=== PATIENT | female | born 1960 | race Caucasian/White ===

== ENCOUNTER → 2016-07-03 | Outpatient (CLI) | payer OTHER ==
[~2016-07-03] MED LIST: BAYE325T PO; IBUP400T20 PO; LEVO112T2 PO; LEVO125T4 PO; LEVO88TA2 PO; LIPI80TA PO
== END ==
LOC: CLAB 12:58
PROVIDERS: ATTEND Family Medicine
DX: E03.9 Hypothyroidism, unspecified (principal)
CPT/HCPCS: 36415; 84443

== ENCOUNTER → 2016-08-10 | Outpatient (CLI) | payer OTHER ==
[~2016-08-10] MED LIST changes: -IBUP400T20 PO; +IOHEXOL 350 MG/ML 10 ML VIAL (for RAD DIAG) IV ONE; -LEVO125T4 PO; -LIPI80TA PO
--- NOTE | 2016-08-10 17:56 | RADRPT ---
EXAM DATE/TIME: 08/10/2016 15:08 [facility] COMPARISON: No previous studies available for comparison. INDICATIONS : Diarrhea for three months. IV CONTRAST: 87 cc Omnipaque 350 (iohexol) IV ORAL CONTRAST: Prescribed oral contrast ingested. RADIATION DOSE: 4.84 CTDIvol (mGy) MEDICAL HISTORY : Hypothyroidism. SURGICAL HISTORY : Colon resection. ENCOUNTER: Initial ACUITY: >1 yr PAIN SCALE: 3/10 LOCATION: Right lower quadrant TECHNIQUE: Volumetric scanning of the abdomen and pelvis was performed. Using automated exposure control and ad justment of the mA and/or kV according to patient size, radiation dose was kept as low as reasonably achievable to obtain optimal diagnostic quality images. FINDINGS: LOWER LUNGS: The visualized lower lungs are clear. LIVER: Homogeneous density without lesion. There is no dilation of the biliary tree. No calcified gallston es. SPLEEN: Normal size without lesion. PANCREAS: Within normal limits. KIDNEYS: Normal in size and shape. There is no mass, stone or hydronephrosis. ADRENAL GLANDS: There is a 18 mm low density mass involving the left adrenal gland. VASCULAR: There is no aortic aneurysm. BOWEL/MESENTERY: The stomach, small bowel, and colon demonstrate no acute abnormality. There is no free intraperitone al air or fluid. ABDOMINAL WALL: Within normal limits. RETROPERITONEUM: There is no lymphadenopathy. BLADDER: No wall thickening or mass. REPRODUCTIVE: Within normal limits. INGUINAL: There is no lymphadenopathy or hernia. MUSCULOSKELETAL: Within normal limits for patient age. CONCLUSION: Left adrenal mass which warrants further evaluation, ideally with elective chemical shift MRI. No acu te CT findings in the abdomen or pelvis. Alberto Sahni MD on August 10, 2016 at 17:51 Board Certified Radiologist. This report was verified electronically.
== END ==
LOC: HRAD 13:05
PROVIDERS: ATTEND Family Medicine
DX: R10.2 Pelvic and perineal pain (principal); E03.9 Hypothyroidism, unspecified; F10.10 Alcohol abuse, uncomplicated; R19.7 Diarrhea, unspecified; K08.89 Other specified disorders of teeth and supporting structures
CPT/HCPCS: 36415; 74177; 84443; 87506; Q9967

== ENCOUNTER → 2016-09-14 | Outpatient (CLI) | payer OTHER ==
[~2016-09-14] MED LIST changes: +GADODIAMIDE PF 287 MG/ML 5 ML VIAL (for RAD MRI) IV ONE; -IOHEXOL 350 MG/ML 10 ML VIAL (for RAD DIAG) IV ONE; -LEVO112T2 PO
--- NOTE | 2016-09-14 17:26 | RADRPT ---
EXAM DATE/TIME: 09/14/2016 15:46 [facility] COMPARISON: CT ABDOMEN & PELVIS W CONTRAST, August 10, 2016, 15:08. INDICATIONS : Mass. Left adrenal mass. CONTRAST: 5 cc Omniscan (gadodiamide) IV MEDICAL HISTORY : Carcinoma, thyroid. SURGICAL HISTORY : Tubal ligation. ENCOUNTER: Initial ACUITY: 1 day PAIN SCORE: 3/10 LOCATION: Abdomen TECHNIQUE: Multiplanar, multisequence magnetic resonance imaging of the abdomen was performed wit hout and with intravenous contrast. FINDINGS: MRI was performed without and with contrast as well as with chemical shift imaging to e valuate the left adrenal mass. Examination is degraded by motion. The mass does contain fat and arthur ws only peripheral enhancement suggesting a benign adenoma. The liver, spleen and pancreas are unremarkable. There is no renal mass identified. Portion of the bony skeleton visualized is unremarkable. CONCLUSION: Adrenal mass by MRI has mostly benign characteristics with substantial fat evident. There is minimal cortical enhancement. This most likely represents a benign adenoma. Given its siz e this could either be followed by a CT scan of the adrenals without and with contrast. This could b e obtained six months from today's date. Carlito Tristan MD FACR on September 14, 2016 at 17:17 Board Certified Radiologist. This report was verified electronically.
== END ==
LOC: HRAD 15:32
PROVIDERS: ATTEND Family Medicine
DX: E27.9 Disorder of adrenal gland, unspecified (principal)
CPT/HCPCS: 74183; A9579

== ENCOUNTER → 2016-10-19 | Outpatient (CLI) | payer OTHER ==
[~2016-10-19] MED LIST changes: -GADODIAMIDE PF 287 MG/ML 5 ML VIAL (for RAD MRI) IV ONE
== END ==
LOC: CLAB 12:34
PROVIDERS: ATTEND Family Medicine
DX: E03.9 Hypothyroidism, unspecified (principal)
CPT/HCPCS: 36415; 84443

== ENCOUNTER 2017-03-05 22:39 | Emergency (ER) | payer SELFPAY ==
[~2017-03-05] VITALS: Ht 160 cm; Wt 55.0 kg
[2017-03-05 22:42] VITALS: BP 140/89; PULSE 98; RESP 16; TEMP 98.2; O2SAT 98
[2017-03-05] MEDS ORDERED: IBUPROFEN 600 MG TAB PO ONE (23:00)
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
== END 2017-03-06 00:20 | disposition home or self-care (01) ==
LOC: NEPC 22:39
DX: S09.90XA Unspecified injury of head, initial encounter (principal); R20.0 Anesthesia of skin; R20.2 Paresthesia of skin; J44.9 Chronic obstructive pulmonary disease, unspecified; J45.909 Unspecified asthma, uncomplicated; E07.9 Disorder of thyroid, unspecified; M19.90 Unspecified osteoarthritis, unspecified site; E78.00 Pure hypercholesterolemia, unspecified; W50.0XXA Accidental hit or strike by another person, initial encounter
CPT/HCPCS: 70450; 99284

== ENCOUNTER 2017-07-13 11:38 | Emergency (ER) | payer SELFPAY ==
[~2017-07-13] VITALS: Ht 160 cm; Wt 57.3 kg
[2017-07-13 12:22] VITALS: BP 159/72; PULSE 100; RESP 20; TEMP 98.4; O2SAT 96
--- NOTE | 2017-07-13 13:11 | PD ---
HPI Chief Complaint: Burn Time Seen by Provider: 13:10 Travel History International Travel<30 days: No Contact w/Intl Traveler<30days: No Traveled to known affect area: No History of Present Illness HPI 56-year-old female presents to the emergency department with complaint of a rash to the dorsal aspect of bilateral forearms and her face from chemicals at work from doing dishes. Rashes been present 2 days. 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 Says the area is itchy and burning. Reports nausea without vomiting. Denies fevers. Denies paresthesias, loss of sensation, decreased range of motion, decreased strength to bilateral upper extremities. Denies airway edema, tongue edema, difficulty breathing, shortness of breath. Has not taken any medication or try any treatments to alleviate her symptoms. Constantly aggravating. No known relieving factors. Symptoms are moderate in severity. Multiple allergies as listed on the chart. [facility] his primary care provider. Has no other medical complaints. No other modifying factors or associated signs and symptoms. PFSH Past Medical History Arthritis: Yes Anxiety: Yes Depression: Yes Cancer: Yes (CANCEROUS GOITER ACCD TO PT) High Cholesterol: Yes Diabetes: No Diminished Hearing: No Psychiatric: Yes Respiratory: Yes (COPD AND ASTHMA) Myocardial Infarction: Yes (STATES SHE SHE WAS MEDICALLY/MENTALLY UNFIT) Thyroid Disease: Yes Tetanus Vaccination: > 5 Years ?: Not Menopausal: Yes : 4 Para: 3 Miscarriage: 1 : 0 Ovarian Cysts: Yes Tubal Ligation: Yes Past Surgical History Abdominal Surgery: Yes (EXP LAP) Gynecologic Surgery: Yes (TUBES TIED) Other Surgery: Yes (RECONSTRUCTIVE NECK SURGERY POST CYST REMOVAL) Social History Alcohol Use: No Tobacco Use: Yes (6 CIGARS A DAY) Substance Use: No Allergies-Medications (Allergen,Severity, Reaction): Coded Allergies: Sulfa (Sulfonamide Antibiotics) (Unverified Allergy, Severe, SHOCK, 07/13/17 ) bee venom protein (honey bee) (Unverified Allergy, Severe, SHOCK, 07/13/17) cortisone (Unverified Allergy, Severe, Psychosis, 07/13/17) penicillin G (Unverified Allergy, Severe, SHOCK, 07/13/17) procaine (Unverified Allergy, Severe, SOB, 07/13/17) Uncoded Allergies: ALL NARCOTICS (Allergy, Severe, AGITATION, 01/03/15) . TOMATO SEEDS (Allergy, Severe, "CAN'T BREATH", 01/03/15) . eggplant seeds (Allergy, Mild, Hives, 02/11/16) Reported Meds & Prescriptions Reported Meds & Active Scripts Active Levothyroxine (Levothyroxine Sodium) 88 Mcg Tab 88 Mcg PO DAILY Reported Herminia Aspirin (Aspirin) 325 Mg Tab 650 Tab PO DIRECTED Review of Systems Except as stated in HPI: all other systems reviewed are Neg Physical Exam Narrative GENERAL: Well-nourished, well-developed female patient, in no acute distress; disheveled SKIN: Warm and dry. Erythematous, Maculo-papular rash noted to dorsal aspect of bilateral forearms and hands; minimal rash noted to the palmar aspect of the wrists; minimal edema noted; area with warmth to touch. Minimal maculopapular rash noted to bilateral facial cheeks. Bilateral upper extremities are supple and nontender with 2+ radial pulses and sensory intact. HEAD: Atraumatic. Normocephalic. EYES: Pupils equal and round. No scleral icterus. No injection or drainage. ENT: Mucosa pink and moist. Airway patent. NECK: Trachea midline. CARDIOVASCULAR: Regular rate. RESPIRATORY: No accessory muscle use. GASTROINTESTINAL: Flat. MUSCULOSKELETAL: No obvious deformities. No clubbing. No cyanosis. No edema. NEUROLOGICAL: Awake and alert. Oriented 3. No obvious cranial nerve deficits. Motor grossly within normal limits. Normal speech. PSYCHIATRIC: Appropriate mood and affect; insight and judgment normal. Data Data Last Documented VS Vital Signs Date Time Temp Pulse Resp B/P (MAP) Pulse Ox O2 Delivery O2 Flow Rate FiO2 07/13/17 12:22 98.4 100 20 159/72 (101) 96 Orders Orders Ibuprofen (Motrin) (07/13/17 13:30) Diphenhydramine (Benadryl) (07/13/17 13:30) MDM Medical Decision Making Medical Screen Exam Complete: Yes Emergency Medical Condition: Yes Medical Record Reviewed: Yes Differential Diagnosis Chemical burn, contact dermatitis, nonspecific rash Narrative Course 56-year-old female with rash to bilateral forearms and facial cheeks that appears to be consistent with contact dermatitis. Patient is afebrile and nontoxic-appearing. Denies fever, vomiting. Rash is itchy and burning. Patient cannot take oral steroids secondary to reaction of psychosis. Benadryl and ibuprofen administered in the ER. Instructed patient to continue Benadryl at home. Patient to use [id number] hydrocortisone cream to forearm areas. Clindamycin, ibuprofen prescribed for home. Diagnosis Primary Impression: Rash and nonspecific skin eruption Referrals: [facility] Primary Care Physician Patient Instructions: Acute Rash (ED), Contact Dermatitis (ED), General Instructions Additional Instructions: Antibiotics as prescribed [id number] topicals to reduce itch Benadryl as directed and as needed to reduce itch Follow-up with your primary care provider Return to the emergency department immediately with worsening of symptoms Med/Other Pt SpecificInfo: Prescription(s) given Scripts Ibuprofen (Ibuprofen) 800 Mg Tab 800 MG PO Q6HR Y for PAIN, #30 TAB 0 Refills Prov: Adrienne Hawkins 07/13/17 Clindamycin (Clindamycin) 150 Mg Cap 300 MG PO Q8HR for Infection for 10 Days, CAP 0 Refills Prov: Adrienne Hawkins 07/13/17 Disposition: 01 DISCHARGE HOME Condition: Stable Adrienne Hawkins Jul 13, 2017 13:11
[2017-07-13] MEDS ORDERED: IBUPROFEN 800 MG TAB PO ONE (13:30)
[2017-07-13] MEDS ORDERED: diphenhydrAMINE HCL 50 MG CAP PO ONE (13:30)
[2017-07-13] MEDS ORDERED: CLIN150C14 PO (13:32)
[2017-07-13] MEDS ORDERED: IBUP1TAB7 PO (13:32)
== END 2017-07-13 13:53 | disposition home or self-care (01) ==
LOC: NEPK 11:38
DX: R21 Rash and other nonspecific skin eruption (principal); M19.90 Unspecified osteoarthritis, unspecified site; E78.00 Pure hypercholesterolemia, unspecified; F41.9 Anxiety disorder, unspecified; F32.9 Major depressive disorder, single episode, unspecified; I25.2 Old myocardial infarction; J44.9 Chronic obstructive pulmonary disease, unspecified; E07.9 Disorder of thyroid, unspecified; Z72.0 Tobacco use
CPT/HCPCS: 99283; Q0163

== ENCOUNTER 2017-09-02 14:07 | Emergency (ER) | payer SELFPAY ==
[~2017-09-02] VITALS: Ht 160 cm; Wt 52.0 kg
[~2017-09-02 14:07] MED LIST changes: +CLIN150C14 PO; +IBUP1TAB7 PO
[2017-09-02 14:27] VITALS: BP 151/65; PULSE 78; RESP 22; TEMP 99.1; O2SAT 96
[2017-09-02] MEDS ORDERED: HYDR-3133 PO (15:47)
[2017-09-02] MEDS ORDERED: PRED5PAK PO (15:47)
--- NOTE | 2017-09-02 15:48 | PD ---
HPI Chief Complaint: Skin Problem Time Seen by Provider: 15:34 Travel History International Travel<30 days: No Contact w/Intl Traveler<30days: No Traveled to known affect area: No History of Present Illness HPI This is a 56-year-old female who presents with an itchy rash that has been going on for 3 days, constant, moderate severity over her chest and back and thighs with no associated shortness of breath or chest tightness. She sleeps outside and is concerned she may have had exposure to poisonous plant. PFSH Past Medical History Arthritis: Yes Anxiety: Yes Depression: Yes Cancer: Yes (CANCEROUS GOITER ACCD TO PT) High Cholesterol: Yes Diabetes: No Diminished Hearing: No Psychiatric: Yes Respiratory: Yes (COPD AND ASTHMA) Myocardial Infarction: Yes (STATES SHE SHE WAS MEDICALLY/MENTALLY UNFIT) Thyroid Disease: Yes ?: Not Menopausal: Yes : 4 Para: 3 Miscarriage: 1 : 0 Ovarian Cysts: Yes Tubal Ligation: Yes Past Surgical History Abdominal Surgery: Yes (EXP LAP) Gynecologic Surgery: Yes (TUBES TIED) Other Surgery: Yes (RECONSTRUCTIVE NECK SURGERY POST CYST REMOVAL) Social History Alcohol Use: No Tobacco Use: Yes (6 CIGARS A DAY) Substance Use: No Allergies-Medications (Allergen,Severity, Reaction): Coded Allergies: Sulfa (Sulfonamide Antibiotics) (Verified Allergy, Severe, SHOCK, 09/02/17) bee venom protein (honey bee) (Verified Allergy, Severe, SHOCK, 09/02/17) cortisone (Verified Allergy, Severe, Psychosis, 09/02/17) penicillin G (Verified Allergy, Severe, SHOCK, 09/02/17) procaine (Verified Allergy, Severe, SOB, 09/02/17) Uncoded Allergies: ALL NARCOTICS (Allergy, Severe, AGITATION, 01/03/15) . TOMATO SEEDS (Allergy, Severe, "CAN'T BREATH", 01/03/15) . eggplant seeds (Allergy, Mild, Hives, 02/11/16) Reported Meds & Prescriptions Reported Meds & Active Scripts Active Hydroxyzine HCl 25 Mg Tab 25 Mg PO QID PRN Prednisone (21) 5 mg tab Dose Pack (Prednisone) 5 Mg Dspk 5 Mg PO DIRECTED Ibuprofen 800 Mg Tab 800 Mg PO Q6HR PRN Clindamycin (Clindamycin HCl) 150 Mg Cap 300 Mg PO Q8HR 10 Days Levothyroxine (Levothyroxine Sodium) 88 Mcg Tab 88 Mcg PO DAILY Reported Herminia Aspirin (Aspirin) 325 Mg Tab 650 Tab PO DIRECTED Review of Systems General / Constitutional: No: Fever, Chills Respiratory: No: Cough, Shortness of Breath Physical Exam Narrative GENERAL: Well-appearing, no acute distress, nontoxic SKIN: Papular rash over the anterior chest wall and back with some surrounding erythema HEAD: Atraumatic. Normocephalic. ENT: No nasal bleeding or discharge. Moist mucous membranes MUSCULOSKELETAL: No obvious deformities NEUROLOGICAL: Awake and alert. No obvious cranial nerve deficits. Motor grossly within normal limits. Normal speech. PSYCHIATRIC: Appropriate mood and affect; insight and judgment normal. Data Data Last Documented VS Vital Signs Date Time Temp Pulse Resp B/P (MAP) Pulse Ox O2 Delivery O2 Flow Rate FiO2 09/02/17 15:37 80 20 09/02/17 14:27 99.1 151/65 (93) 96 Orders Orders Ed Discharge Order (09/02/17 15:48) [facility] Medical Decision Making Medical Screen Exam Complete: Yes Emergency Medical Condition: Yes Differential Diagnosis Contact dermatitis, atopic dermatitis, poison phyllis, allergic reaction Narrative Course This is a 56-year-old female who presents to the emergency department with an itchy rash over her torso. It appears to be a contact dermatitis. We discussed the pros and cons of steroids. She has had some cherelle in the setting of steroids in the past but she would like to try low-dose as her symptoms are severe. Patient will be discharged on hydroxyzine and low-dose prednisone. Diagnosis Primary Impression: Contact dermatitis Qualified Codes: L23.9 - Allergic contact dermatitis, unspecified cause Patient Instructions: General Instructions Additional Instructions: If you develop shortness of breath, chest pain, or spreading of your rash return to the emergency department. Med/Other Pt SpecificInfo: Prescription(s) given, No Change to Meds Scripts Hydroxyzine HCl (Hydroxyzine HCl) 25 Mg Tab 25 MG PO QID Y for ITCHING, #15 TAB 0 Refills Prov: Megan Jenkins MD 09/02/17 Prednisone (21) 5 mg tab Dose Pack (Prednisone (21) 5 mg tab Dose Pack) 5 Mg Dspk 5 MG PO DIRECTED for Inflammation, #1 DSPK 0 Refills Prov: Megan Jenkins MD 09/02/17 Disposition: 01 DISCHARGE HOME Condition: Stable Megan Jenkins MD September 02, 2017 15:47
== END 2017-09-02 16:02 | disposition home or self-care (01) ==
LOC: NEPA 14:07
DX: L23.7 Allergic contact dermatitis due to plants, except food (principal); E78.00 Pure hypercholesterolemia, unspecified; F32.9 Major depressive disorder, single episode, unspecified; J44.9 Chronic obstructive pulmonary disease, unspecified; M19.90 Unspecified osteoarthritis, unspecified site; I25.2 Old myocardial infarction; Z72.0 Tobacco use
CPT/HCPCS: 99283

== ENCOUNTER 2017-09-20 14:07 | Emergency (ER) | payer SELFPAY ==
[~2017-09-20] VITALS: Ht 160 cm; Wt 55.0 kg
[~2017-09-20 14:07] MED LIST changes: +HYDR-3133 PO; +PRED5PAK PO
[2017-09-20 14:20] VITALS: BP 138/71; PULSE 93; RESP 16; TEMP 99.7; O2SAT 98
--- NOTE | 2017-09-20 15:40 | PD ---
HPI Chief Complaint: Bite or Sting Time Seen by Provider: 15:20 Travel History International Travel<30 days: No Contact w/Intl Traveler<30days: No Traveled to known affect area: No History of Present Illness HPI Patient comes to the emergency department complaining of possible bug bite to her left axilla that she first noticed 2 days ago. Patient describes a stabbing burning pain in her left axilla that radiates into her left arm and into her left lateral rib cage. Pain is worse with certain movement of her left upper extremity. Patient is tried squeezing it only got a little bit of blood out. Denies anything making it better. Touching it or moving her left upper extremities the pain worse. Denies any fevers, weight loss, chest pain, or shortness of breath. PFSH Past Medical History Arthritis: Yes Anxiety: Yes Depression: Yes Cancer: Yes (CANCEROUS GOITER ACCD TO PT) High Cholesterol: Yes Diabetes: No Diminished Hearing: No Psychiatric: Yes Respiratory: Yes (COPD AND ASTHMA) Myocardial Infarction: Yes (STATES SHE SHE WAS MEDICALLY/MENTALLY UNFIT) Thyroid Disease: Yes ?: Not Menopausal: Yes : 4 Para: 3 Miscarriage: 1 : 0 Ovarian Cysts: Yes Tubal Ligation: Yes Past Surgical History Abdominal Surgery: Yes (EXP LAP) Gynecologic Surgery: Yes (TUBES TIED) Other Surgery: Yes (RECONSTRUCTIVE NECK SURGERY POST CYST REMOVAL) Social History Alcohol Use: No Tobacco Use: Yes (6 CIGARS A DAY) Substance Use: No Allergies-Medications (Allergen,Severity, Reaction): Coded Allergies: Sulfa (Sulfonamide Antibiotics) (Verified Allergy, Severe, SHOCK, 09/02/17) bee venom protein (honey bee) (Verified Allergy, Severe, SHOCK, 09/02/17) cortisone (Verified Allergy, Severe, Psychosis, 09/02/17) penicillin G (Verified Allergy, Severe, SHOCK, 09/02/17) procaine (Verified Allergy, Severe, SOB, 09/02/17) Uncoded Allergies: ALL NARCOTICS (Allergy, Severe, AGITATION, 01/03/15) . TOMATO SEEDS (Allergy, Severe, "CAN'T BREATH", 01/03/15) . eggplant seeds (Allergy, Mild, Hives, 02/11/16) Reported Meds & Prescriptions Reported Meds & Active Scripts Active Doxycycline Hyclate 100 Mg Cap 100 Mg PO BID Clindamycin (Clindamycin HCl) 150 Mg Cap 2 Cap PO Q6H 10 Days Hydroxyzine HCl 25 Mg Tab 25 Mg PO QID PRN Prednisone (21) 5 mg tab Dose Pack (Prednisone) 5 Mg Dspk 5 Mg PO DIRECTED Ibuprofen 800 Mg Tab 800 Mg PO Q6HR PRN Clindamycin (Clindamycin HCl) 150 Mg Cap 300 Mg PO Q8HR 10 Days Levothyroxine (Levothyroxine Sodium) 88 Mcg Tab 88 Mcg PO DAILY Reported Herminia Aspirin (Aspirin) 325 Mg Tab 650 Tab PO DIRECTED Review of Systems Except as stated in HPI: all other systems reviewed are Neg Physical Exam Narrative GENERAL: Well-developed, well nourished, in no acute distress, and non-ill appearing. SKIN: Patient is a small tender firm indurated early abscess noted in left axilla. There is no drainage. No fluctuation. No crepitus. HEAD: Atraumatic. Normocephalic. EYES: Pupils equal and round. EOMI. No scleral icterus. No injection or drainage. ENT: No nasal bleeding or discharge. Mucous membranes pink and moist. NECK: Trachea midline.Supple. No nuclear rigidity. CARDIOVASCULAR: Radial pulses 2+, intact, and equal bilaterally. Capillary refill less than 2 seconds. RESPIRATORY: No accessory muscle use. No respiratory distress. MUSCULOSKELETAL: No obvious deformities. No clubbing. No cyanosis. No edema. Full range of motion the patient is hesitant to move left upper extremity secondary to pain. Shoulder:FROM equal BL with passive flexion, extension, Abduction, Adduction, internal/external rotation, and pronation/supination. Sensation equal BL deltoid muscles. Pulses equal BL distal to infection. Capillary refill less than 2 seconds distal to infection and equal BL. FROM distal to infection and equal BL. Strength distal to infection equal BL. NV intact distal to infection equal BL. Flexion and extension of thumb equal BL. Equal strength and movement with abduction/adductions of BL fingers. [employer] strength equal BL. NEUROLOGICAL: Awake and alert. No obvious cranial nerve deficits. Motor grossly within normal limits. Normal speech. PSYCHIATRIC: Appropriate mood and affect; insight and judgment normal. Data Data Last Documented VS Vital Signs Date Time Temp Pulse Resp B/P (MAP) Pulse Ox O2 Delivery O2 Flow Rate FiO2 09/20/17 14:20 99.7 93 16 138/71 (93) 98 Orders Orders Clindamycin Inj (Cleocin Inj) (09/20/17 15:45) Ed Discharge Order (09/20/17 15:34) [facility] Medical Decision Making Medical Screen Exam Complete: Yes Emergency Medical Condition: Yes Differential Diagnosis Abscess, cellulitis, folliculitis, hidradenitis Narrative Course The patient has no evidence of obvious abscess at this time. The patient will be discharged on antibiotics for cellulitis with possible early/immature abscess. Clinical suspicion, diagnosis and care management was discussed. The patient was given signs and symptoms warnings for worsening infection, such as spreading of redness, increasing pain, and/or swelling, associated heat, pus or fever and instructed to return immediately if these signs or symptoms worsen. The patient is to return in 2 days for recheck for maturity. Sooner if worsens or as needed. The patient agrees with plan. Patient in no obvious distress upon re-evaluation. Discussed patient with Dr. Swan prior discharge, who is in agreement plan of care and disposition. Patient was asked if they wanted to speak to my attending, which the patient did not wish to do at this time. Any questions/concerns in reference to patient diagnosis/condition discussed and clarified prior to patient's discharge. Reinforced sheer importance of close follow up with patient's primary physician or primary care clinic. Instructed patient to return to ED immediately, if symptoms return/worsen. Patient showed understanding of above instructions. Further instructions and recommendations were detailed in discharge paperwork. Patient ambulated without difficulty out of ED at discharge. Diagnosis Primary Impression: Cellulitis of axilla, left Referrals: [facility] Patient Instructions: Cellulitis (ED), General Instructions Additional Instructions: Follow-up with your primary care physician or return here in 2 days for reevaluation. Take all medication as prescribed. Apply warm compresses to affected area multiple times throughout the day to promote maturity. Return to the emergency department sooner if symptoms get worse. Med/Other Pt SpecificInfo: Prescription(s) given Scripts Doxycycline Hyclate (Doxycycline Hyclate) 100 Mg Cap 100 MG PO BID for Infection, #20 CAP 0 Refills Prov: Jayme Swan MD 09/20/17 Clindamycin (Clindamycin) 150 Mg Cap 2 CAP PO Q6H for Infection for 10 Days, #80 CAP 0 Refills Prov: Jayme Swan MD 09/20/17 Disposition: 01 DISCHARGE HOME Condition: Stable Raffaele Bass Sep 20, 2017 15:40
[2017-09-20] MEDS ORDERED: DOXY100C PO (15:45)
[2017-09-20] MEDS ORDERED: CLIN150C14 PO (15:45)
[2017-09-20] MEDS ORDERED: CLINDAMYCIN PHOS 600 MG/4 ML VIAL IM ONE (15:45)
== END 2017-09-20 18:28 | disposition home or self-care (01) ==
LOC: NEPD 14:07
DX: L03.112 Cellulitis of left axilla (principal); F17.290 Nicotine dependence, other tobacco product, uncomplicated
CPT/HCPCS: 96372

== ENCOUNTER 2017-09-22 13:01 | Inpatient (IN) | payer SELFPAY ==
[~2017-09-22] VITALS: Ht 160 cm; Wt 54.5 kg
[~2017-09-22 13:01] MED LIST changes: +DOXY100C PO
[2017-09-22 13:06] VITALS: BP 153/99; PULSE 123; RESP 16; TEMP 99.7; O2SAT 96
[2017-09-22] MEDS ORDERED: SODIUM CHLOR 0.9% 1000 ML INJ 1,000 ML IV ONE ×2 (13:30)
--- NOTE | 2017-09-22 13:32 | PD ---
HPI Chief Complaint: Wound/Suture/Staple Re-Check Time Seen by Provider: 13:19 Travel History International Travel<30 days: No Contact w/Intl Traveler<30days: No Traveled to known affect area: No History of Present Illness HPI 56-year-old female with history of CAD, hypothyroidism, COPD, depression, anxiety, presents emergency department for reevaluation of what she believes is an insect bite to her left axilla. Patient was seen and evaluated here on Wednesday. She believed the bite occurred 2 days prior. She was given clindamycin IM on Wednesday and prescribed doxycycline and clindamycin outpatient. Patient states she cannot afford her antibiotics. Over the course of the last 2 days, pain has become more constant and severe. It is exacerbated with any movement of the left upper extremity. She states it radiates to her chest which is also very tender to palpate. She reports subjective fever and chills. She states she has also been nauseous. She has no other symptoms to report at this time. PFSH Past Medical History Arthritis: Yes Anxiety: Yes Depression: Yes Cancer: Yes (CANCEROUS GOITER ACCD TO PT) High Cholesterol: Yes Diabetes: No Diminished Hearing: No Psychiatric: Yes Respiratory: Yes (COPD AND ASTHMA) Myocardial Infarction: Yes (STATES SHE WAS MEDICALLY/MENTALLY UNFIT) Thyroid Disease: Yes Menopausal: Yes : 4 Para: 3 Miscarriage: 1 : 0 Ovarian Cysts: Yes Tubal Ligation: Yes Past Surgical History Abdominal Surgery: Yes (EXP LAP) Gynecologic Surgery: Yes (TUBES TIED) Other Surgery: Yes (RECONSTRUCTIVE NECK SURGERY POST CYST REMOVAL) Social History Alcohol Use: No Tobacco Use: Yes (6 CIGARS A DAY) Substance Use: No Allergies-Medications (Allergen,Severity, Reaction): Coded Allergies: Sulfa (Sulfonamide Antibiotics) (Verified Allergy, Severe, SHOCK, 09/22/17) bee venom protein (honey bee) (Verified Allergy, Severe, SHOCK, 09/22/17) cortisone (Verified Allergy, Severe, Psychosis, 09/22/17) penicillin G (Verified Allergy, Severe, SHOCK, 09/22/17) procaine (Verified Allergy, Severe, SOB, 09/22/17) Uncoded Allergies: ALL NARCOTICS (Allergy, Severe, AGITATION, 01/03/15) . TOMATO SEEDS (Allergy, Severe, "CAN'T BREATH", 01/03/15) . eggplant seeds (Allergy, Mild, Hives, 02/11/16) Reported Meds & Prescriptions Reported Meds & Active Scripts Active Doxycycline Hyclate 100 Mg Cap 100 Mg PO BID Clindamycin (Clindamycin HCl) 150 Mg Cap 2 Cap PO Q6H 10 Days Hydroxyzine HCl 25 Mg Tab 25 Mg PO QID PRN Prednisone (21) 5 mg tab Dose Pack (Prednisone) 5 Mg Dspk 5 Mg PO DIRECTED Ibuprofen 800 Mg Tab 800 Mg PO Q6HR PRN Clindamycin (Clindamycin HCl) 150 Mg Cap 300 Mg PO Q8HR 10 Days Levothyroxine (Levothyroxine Sodium) 88 Mcg Tab 88 Mcg PO DAILY Reported Herminia Aspirin (Aspirin) 325 Mg Tab 650 Tab PO DIRECTED Review of Systems Except as stated in HPI: all other systems reviewed are Neg Physical Exam Narrative GENERAL: Unkempt female patient, lying in bed, in no acute distress SKIN: Focused skin assessment warm/dry. Induration with associated erythema encompassing the entire left axilla extending onto the left anterior chest. There is another patch of erythema more medially located. The area is warm and tender to palpate. There is no fluctuation or drainage. There is left axillary adenopathy. HEAD: Atraumatic. Normocephalic. EYES: Pupils equal and round. No scleral icterus. No injection or drainage. ENT: No nasal bleeding or discharge. Mucous membranes pink and moist. NECK: Trachea midline. No JVD. CARDIOVASCULAR: Tachycardic rate and rhythm. RESPIRATORY: No accessory muscle use. Coarse, diminished to auscultation. Breath sounds equal bilaterally. GASTROINTESTINAL: Abdomen soft, non-tender, nondistended. Hepatic and splenic margins not palpable. MUSCULOSKELETAL: No obvious deformities. No clubbing. No cyanosis. Distal pulses are palpable. Cap refills within normal limits. NEUROLOGICAL: Awake and alert. No obvious cranial nerve deficits. Motor grossly within normal limits. Normal speech. Data Data Last Documented VS Vital Signs Date Time Temp Pulse Resp B/P (MAP) Pulse Ox O2 Delivery O2 Flow Rate FiO2 09/22/17 13:52 107 24 128/67 (87) 95 Room Air 09/22/17 13:06 99.7 Orders Orders Sepsis Workup Initiated (09/22/17 ) Complete Blood Count With Diff (09/22/17 13:26) Comprehensive Metabolic Panel (09/22/17 13:26) Lactic Acid Sepsis Protocol (09/22/17 13:26) Urinalysis - C+S If Indicated (09/22/17 13:) Blood Culture (09/22/17 13:) Chest, Single Ap (09/22/17 13:26) Blood Glucose (09/22/17 13:26) Ecg Monitoring (09/22/17 13:) Iv Access Insert/Monitor (09/22/17 13:) Oximetry (09/22/17 13:) Oxygen Administration (09/22/17 13:) Us Soft Tissue (09/22/17 ) Sodium Chlor 0.9% 1000 Ml Inj (Ns 1000 M (09/22/17 13:30) Sodium Chlor 0.9% 1000 Ml Inj (Ns 1000 M (09/22/17 13:30) Aztreonam Inj (Azactam Inj) (09/22/17 15:05) Metronidazole 500 Mg Inj (Flagyl 500 Mg (09/22/17 15:05) Vancomycin Inj (Vancomycin Inj) (09/22/17 15:05) Labs Laboratory Tests Test 09/22/17 14:16 White Blood Count 14.4 TH/MM3 Red Blood Count 5.45 MIL/MM3 Hemoglobin 17.0 GM/DL Hematocrit 49.6 % Mean Corpuscular Volume 91.0 FL Mean Corpuscular Hemoglobin 31.2 PG Mean Corpuscular Hemoglobin Concent 34.3 % Red Cell Distribution Width 15.1 % Platelet Count 162 TH/MM3 Mean Platelet Volume 10.0 FL Neutrophils (%) (Auto) 87.0 % Lymphocytes (%) (Auto) 7.2 % Monocytes (%) (Auto) 5.3 % Eosinophils (%) (Auto) 0.2 % Basophils (%) (Auto) 0.3 % Neutrophils # (Auto) 12.5 TH/MM3 Lymphocytes # (Auto) 1.0 TH/MM3 Monocytes # (Auto) 0.8 TH/MM3 Eosinophils # (Auto) 0.0 TH/MM3 Basophils # (Auto) 0.0 TH/MM3 CBC Comment DIFF FINAL Differential Comment MDM Medical Decision Making Medical Screen Exam Complete: Yes Emergency Medical Condition: Yes Medical Record Reviewed: Yes Differential Diagnosis Abscess versus cellulitis versus neoplasm versus adenopathy versus insect bite versus local reaction Narrative Course 56-year-old female presents emergency department for evaluation of an insect bite to her left axilla that she was seen and evaluated for here on Wednesday of this week. Patient has not taken her antibiotics because she cannot afford them. The area has become more reddened and more painful extending onto her chest as well. Patient's breast exam is benign. Left axilla is tender with associated adenopathy. Patient does meet sepsis criteria. Antibiotics and IV fluid normal saline bolus are per protocol. Laboratory Tests Test 09/22/17 14:16 White Blood Count 14.4 TH/MM3 Red Blood Count 5.45 MIL/MM3 Hemoglobin 17.0 GM/DL Hematocrit 49.6 % Mean Corpuscular Volume 91.0 FL Mean Corpuscular Hemoglobin 31.2 PG Mean Corpuscular Hemoglobin Concent 34.3 % Red Cell Distribution Width 15.1 % Platelet Count 162 TH/MM3 Mean Platelet Volume 10.0 FL Neutrophils (%) (Auto) 87.0 % Lymphocytes (%) (Auto) 7.2 % Monocytes (%) (Auto) 5.3 % Eosinophils (%) (Auto) 0.2 % Basophils (%) (Auto) 0.3 % Neutrophils # (Auto) 12.5 TH/MM3 Lymphocytes # (Auto) 1.0 TH/MM3 Monocytes # (Auto) 0.8 TH/MM3 Eosinophils # (Auto) 0.0 TH/MM3 Basophils # (Auto) 0.0 TH/MM3 CBC Comment DIFF FINAL Differential Comment I discussed the patient my attending physician is also assessed the patient. he was to panel and lactic acid are yet to be resulted due to re-collect. Patient will be admitted to [facility] for admission further evaluation. Sepsis Criteria SIRS Criteria (2 or more): Heart rate over 90, WBC > 70902, < 4000 or > 10% bands Sepsis Criteria (SIRS+source): Infect source susp/known Diagnosis Primary Impression: Sepsis Qualified Codes: A41.9 - Sepsis, unspecified organism Additional Impression: Cellulitis of axillary region Admitting Information Admitting Physician Requests: Admit Condition: Stable Opal Sunshine PEDRO Sep 22, 2017 13:32
--- NOTE | 2017-09-22 13:50 | RADRPT ---
EXAM DATE: 09/22/2017 1:44 PM EDT AGE/SEX: 56 years / Female INDICATIONS: Fever for several days. Patient being treated for a spider bite, 4 days. CLINICAL DATA: This is the patient's initial encounter. Patient reports that signs and symptoms have been present for 4 - 6 days and indicates a pain score of 0/10. MEDICAL/SURGICAL HISTORY: Hypercholesterolemia. Hypothyroidism. Chronic obstructive pulmonary disease. hyperlipidemia. Asthma. Arthritis. Hysterectomy. COMPARISON: No prior exams available for comparison. FINDINGS: A single AP view of the chest demonstrates the lungs to be symmetrically aerated without evidence of mass, infiltrate or effusion. The cardiomediastinal contours are unremarkable. Osseous structures a re intact. CONCLUSION: Negative examination. Electronically signed by: Bassam Becker MD 09/22/2017 1:49 PM EDT
[2017-09-22 13:52] VITALS: BP 128/67; PULSE 107; RESP 24; O2SAT 95
[2017-09-22 14:55] LABS: AUTOMATED NEUTROPHIL # 12.5 TH/MM3 (1.8-7.7); BASOPHIL % 0.3 % (0.0-2.0); EOSINOPHIL % 0.2 % (0.0-4.0); HEMATOCRIT 49.6 % (35.0-46.0); LYMPH % 7.2 % (9.0-44.0); MEAN CORPUSCULAR HEMOGLOBIN 31.2 PG (27.0-34.0); MEAN CORPUSCULAR HGB CONC 34.3 % (32.0-36.0); MONO % 5.3 % (0.0-8.0); MONOCYTE # 0.8 TH/MM3 (0-0.9); PLATELET COUNT 162 TH/MM3 (150-450); RED BLOOD COUNT 5.45 MIL/MM3 (4.00-5.30); RED CELL DISTRIBUTION WIDTH 15.1 % (11.6-17.2); WHITE BLOOD COUNT 14.4 TH/MM3 (4.0-11.0)
[2017-09-22] MEDS ORDERED: VANCOMYCIN INJ 1,000 MG in SODIUM CHLOR 0.9% 250 ML INJ 250 ML IV STA (15:05)
[2017-09-22] MEDS ORDERED: AZTREONAM INJ 2,000 MG in SODIUM CHLORIDE 0.9% INJ 100 ML IV STA (15:05)
[2017-09-22] MEDS ORDERED: metroNIDAZOLE 500 MG INJ 100 ML IV STA (15:05)
--- NOTE | 2017-09-22 15:37 | PD ---
Physical Exam Narrative GENERAL: 56 y/o female in no apparent distress SKIN: Cellulitis noted to left upper arm that extends into chest, patient has pain with palpation of axilla without limited exam but no obvious abscess HEAD: Atraumatic. Normocephalic. EYES: Pupils equal and round. No scleral icterus. No injection or drainage. ENT: No nasal bleeding or discharge. Mucous membranes pink and moist. NECK: Trachea midline. CARDIOVASCULAR: Regular rate and rhythm. RESPIRATORY: No accessory muscle use. Clear to auscultation. Breath sounds equal bilaterally. MUSCULOSKELETAL: No obvious deformities. No clubbing. No cyanosis. Significant pain with movement of left arm NEUROLOGICAL: Awake and alert. No obvious cranial nerve deficits. Motor grossly within normal limits. Normal speech. PSYCHIATRIC: Appropriate mood and affect; insight and judgment normal. Data Data Last Documented VS Vital Signs Date Time Temp Pulse Resp B/P (MAP) Pulse Ox O2 Delivery O2 Flow Rate FiO2 09/22/17 17:21 98 19 147/74 (98) 97 Room Air 09/22/17 13:06 99.7 Orders Orders Sepsis Workup Initiated (09/22/17 ) Complete Blood Count With Diff (09/22/17 13:26) Comprehensive Metabolic Panel (09/22/17 13:26) Lactic Acid Sepsis Protocol (09/22/17 13:26) Urinalysis - C+S If Indicated (09/22/17 13:26) Blood Culture (09/22/17 13:26) Chest, Single Ap (09/22/17 13:26) Blood Glucose (09/22/17 13:26) Ecg Monitoring (09/22/17 13:26) Iv Access Insert/Monitor (09/22/17 13:26) Oximetry (09/22/17 13:26) Oxygen Administration (09/22/17 13:26) Us Soft Tissue (09/22/17 ) Sodium Chlor 0.9% 1000 Ml Inj (Ns 1000 M (09/22/17 13:30) Sodium Chlor 0.9% 1000 Ml Inj (Ns 1000 M (09/22/17 13:30) Aztreonam Inj (Azactam Inj) (09/22/17 15:05) Metronidazole 500 Mg Inj (Flagyl 500 Mg (09/22/17 15:05) Vancomycin Inj (Vancomycin Inj) (09/22/17 15:05) Admit Order (Ed Use Only) (09/22/17 17:41) Labs Laboratory Tests Test 09/22/17 14:16 09/22/17 15:39 09/22/17 15:40 White Blood Count 14.4 TH/MM3 Red Blood Count 5.45 MIL/MM3 Hemoglobin 17.0 GM/DL Hematocrit 49.6 % Mean Corpuscular Volume 91.0 FL Mean Corpuscular Hemoglobin 31.2 PG Mean Corpuscular Hemoglobin Concent 34.3 % Red Cell Distribution Width 15.1 % Platelet Count 162 TH/MM3 Mean Platelet Volume 10.0 FL Neutrophils (%) (Auto) 87.0 % Lymphocytes (%) (Auto) 7.2 % Monocytes (%) (Auto) 5.3 % Eosinophils (%) (Auto) 0.2 % Basophils (%) (Auto) 0.3 % Neutrophils # (Auto) 12.5 TH/MM3 Lymphocytes # (Auto) 1.0 TH/MM3 Monocytes # (Auto) 0.8 TH/MM3 Eosinophils # (Auto) 0.0 TH/MM3 Basophils # (Auto) 0.0 TH/MM3 CBC Comment DIFF FINAL Differential Comment Lactic Acid Level 1.1 mmol/L Blood Urea Nitrogen 7 MG/DL Creatinine 0.63 MG/DL Random Glucose 85 MG/DL Total Protein 7.1 GM/DL Albumin 2.9 GM/DL Calcium Level 7.7 MG/DL Alkaline Phosphatase 103 U/L Aspartate Amino Transf (AST/SGOT) 10 U/L Alanine Aminotransferase (ALT/SGPT) 8 U/L Total Bilirubin 0.5 MG/DL Sodium Level 138 MEQ/L Potassium Level 3.6 MEQ/L Chloride Level 107 MEQ/L Carbon Dioxide Level 19.4 MEQ/L Anion Gap 12 MEQ/L Estimat Glomerular Filtration Rate 98 ML/MIN Urine Color LIGHT-YELLOW Urine Turbidity CLEAR Urine pH 7.0 Urine Specific [place] 1.007 Urine Protein NEG mg/dL Urine Glucose (UA) NEG mg/dL Urine Ketones NEG mg/dL Urine Occult Blood NEG Urine Nitrite NEG Urine Bilirubin NEG Urine Urobilinogen LESS THAN 2.0 MG/DL Urine Leukocyte Esterase NEG Urine RBC LESS THAN 1 /hpf Urine Squamous Epithelial Cells <1 /hpf Microscopic Urinalysis Comment CATH-CULT NOT IND MDM Supervised Visit with NATALIE: Yes Interpretation(s) CBC & BMP Diagram 09/22/17 14:16 09/22/17 15:39 Total Protein 7.1, Albumin 2.9 L, Calcium Level 7.7 L, Alkaline Phosphatase 103 , Aspartate Amino Transf (AST/SGOT) 10 L, Alanine Aminotransferase (ALT/SGPT) 8 L, Total Bilirubin 0.5 Last 24 hours Impressions Chest X-Ray 09/22/17 1326 Signed Impressions: CONCLUSION: Negative examination. Soft Tissue Ultrasound 09/22/17 0000 Signed Impressions: CONCLUSION: 1. Probable lymph node as above. Narrative Course I, Dr. le , have reviewed the advance practice practitioner's documentation and am in agreement, met with the patient face to face, made the diagnosis, and the medical decision making was done by me. *My assessment and Findings: 56 y/o female presents with persistent cellulitis that is spreading with signs of sepsis. She will be admitted to the hospital for IV antibiotic therapy. Sepsis Criteria SIRS Criteria (2 or more): Heart rate over 90, WBC > 16928, < 4000 or > 10% bands Sepsis Criteria (SIRS+source): Infect source susp/known Criteria Outcome: Meets sepsis criteria Diagnosis Primary Impression: Sepsis Qualified Codes: A41.9 - Sepsis, unspecified organism Additional Impression: Cellulitis of axillary region Admitting Information Admitting Physician Requests: Admit Portia Le MD Sep 22, 2017 15:37
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
[2017-09-22 16:15] LABS: BILIRUBIN, URINE NEG (NEG); BLOOD, URINE NEG (NEG); GLUCOSE,URINE NEG (NEG); KETONE, URINE NEG (NEG); NITRITE,URINE NEG (NEG); SQUAMOUS EPITHELIAL CELL URINE <1 /hpf (0-5); URINE COLOR LIGHT-YELLOW (YELLW/STRAW); URINE LEUKOCYTE ESTERASE NEG (NEG)
[2017-09-22 16:51] LABS: ALKALINE PHOSPHATASE 103 U/L (45-117); TOTAL BILIRUBIN ADULT 0.5 MG/DL (0.2-1.0); TOTAL PROTEIN 7.1 GM/DL (6.4-8.2)
[2017-09-22 17:13] LABS: ALBUMIN 2.9 GM/DL (3.4-5.0); ALT (GPT) 8 U/L (10-53); AST (GOT) 10 U/L (15-37); BICARBONATE 19.4 MEQ/L (21.0-32.0); BLOOD UREA NITROGEN 7 MG/DL (7-18); CALCIUM 7.7 MG/DL (8.5-10.1); CHLORIDE 107 MEQ/L (98-107); CREATININE 0.63 MG/DL (0.50-1.00); GLOMERULAR FILTRATION RATE 98 ML/MIN (>89); GLUCOSE,RANDOM 85 MG/DL (74-106); SODIUM (NA) 138 MEQ/L (136-145)
[2017-09-22 17:21] VITALS: BP 147/74; PULSE 98; RESP 19; O2SAT 97
[2017-09-22 18:14] VITALS: TEMP 100.9
[2017-09-22] MEDS ORDERED: BISACODYL 10 MG SUPP RECTAL PRN (19:00)
[2017-09-22] MEDS ORDERED: MAGNESIUM HYDROXIDE SUSP 30 ML CUP PO PRN (19:00)
[2017-09-22] MEDS ORDERED: VANCOMYCIN INJ 1,000 MG in SODIUM CHLOR 0.9% 250 ML INJ 250 ML IV SCH (19:00)
[2017-09-22] MEDS ORDERED: LACTULOSE SYRUP 20 GM/30 ML CUP PO PRN (19:00)
[2017-09-22] MEDS ORDERED: NALOXONE HCL 0.4 MG/ML AMP IV PUSH PRN (19:00)
[2017-09-22] MEDS ORDERED: SODIUM CHLORIDE 0.9% FLUSH 10 ML FLUSH IV FLUSH PRN (19:00)
[2017-09-22] MEDS ORDERED: SENNOSIDES 8.6 MG TAB PO PRN ×2 (19:00→20:45)
[2017-09-22] MEDS ORDERED: Vancomycin Consult Pharmacy 1 EA OTHER SCH (19:15)
--- NOTE | 2017-09-22 19:43 | HHI.HP ---
HPI Service [facility] Hospitalists Primary Care Physician Unknown Admission Diagnosis Sepsis; L axilla cellulitis Diagnoses: Chief Complaint: Left axillary pain Travel History International Travel<30 Days: No Contact w/Intl Traveler <30 Da: No Traveled to Known Affected Are: No History of Present Illness This is a 56-year-old female with past medical history of hypothyroidism who presents to [facility] for the second time complaining of left axillary pain, erythema, warmth. The patient states that this past Wednesday she was bed while she was sleeping by spider. She was seen in the hospital 2 days ago on September 20, 2017 and was discharged with oral antibiotics. The patient states that due to lack of economic resources she was not able to buy the medication. The patient described the pain as constant, throbbing, nonradiating associated with fevers and chills which has been progressively been getting worse. The patient otherwise denies any chest pain, shortness of breath, nausea, vomiting, abdominal pain, diarrhea. Review of Systems As per HPI, other systems reviewed by me and negative. Past Family Social History Past Medical History Hypothyroidism Past Surgical History Tubal ligation. Cyst in the neck removal. Plastic surgery for neck scar. Reported Medications Ibuprofen 800 Mg Tab 800 Mg PO Q6HR PRN Levothyroxine (Levothyroxine Sodium) 88 Mcg Tab 88 Mcg PO DAILY Allergies: Coded Allergies: Sulfa (Sulfonamide Antibiotics) (Verified Allergy, Severe, SHOCK, 09/22/17) bee venom protein (honey bee) (Verified Allergy, Severe, SHOCK, 09/22/17) cortisone (Verified Allergy, Severe, Psychosis, 09/22/17) penicillin G (Verified Allergy, Severe, SHOCK, 09/22/17) procaine (Verified Allergy, Severe, SOB, 09/22/17) Uncoded Allergies: ALL NARCOTICS (Allergy, Severe, AGITATION, 01/03/15) . TOMATO SEEDS (Allergy, Severe, "CAN'T BREATH", 01/03/15) . eggplant seeds (Allergy, Mild, Hives, 02/11/16) Family History Patient's brother had diabetes mellitus. Patient's father had CAD. Social History The patient states she smokes 3-10 cigarettes per day. Denies alcohol intake but has history of alcohol abuse and states has been sober for the last 26 years. Denies illegal drug use. Physical Exam Vital Signs Vital Signs Date Time Temp Pulse Resp B/P (MAP) Pulse Ox O2 Delivery O2 Flow Rate FiO2 09/22/17 18:14 100.9 09/22/17 17:21 98 19 147/74 (98) 97 Room Air 09/22/17 13:52 107 24 128/67 (87) 95 Room Air 09/22/17 13:06 99.7 123 16 153/99 (117) 96 Physical Exam GENERAL: This is a well-nourished, well-developed patient, in no apparent distress. SKIN: No rashes, ecchymoses or lesions. Cool and dry. HEAD: Atraumatic. Normocephalic. No temporal or scalp tenderness. EYES: Pupils equal round and reactive. Extraocular motions intact. No scleral icterus. No injection or drainage. ENT: Nose without bleeding, purulent drainage or septal hematoma. Throat without erythema, tonsillar hypertrophy or exudate. Uvula midline. Airway patent. NECK: Trachea midline. No JVD or lymphadenopathy. Supple, nontender, no meningeal signs. CARDIOVASCULAR: Regular rate and rhythm without murmurs, gallops, or rubs. RESPIRATORY: Clear to auscultation. Breath sounds equal bilaterally. No wheezes , rales, or rhonchi. GASTROINTESTINAL: Abdomen soft, non-tender, nondistended. No hepato-splenomegaly , or palpable masses. No guarding. MUSCULOSKELETAL: Extremities without clubbing, cyanosis, or edema. No joint tenderness, effusion, or edema noted. No calf tenderness. Negative Homans sign bilaterally. NEUROLOGICAL: Awake and alert. Cranial nerves II through XII intact. Motor and sensory grossly within normal limits. Five out of 5 muscle strength in all muscle groups. Normal speech. Laboratory Laboratory Tests Test 09/22/17 14:16 09/22/17 15:39 09/22/17 15:40 White Blood Count 14.4 Red Blood Count 5.45 Hemoglobin 17.0 Hematocrit 49.6 Mean Corpuscular Volume 91.0 Mean Corpuscular Hemoglobin 31.2 Mean Corpuscular Hemoglobin Concent 34.3 Red Cell Distribution Width 15.1 Platelet Count 162 Mean Platelet Volume 10.0 Neutrophils (%) (Auto) 87.0 Lymphocytes (%) (Auto) 7.2 Monocytes (%) (Auto) 5.3 Eosinophils (%) (Auto) 0.2 Basophils (%) (Auto) 0.3 Neutrophils # (Auto) 12.5 Lymphocytes # (Auto) 1.0 Monocytes # (Auto) 0.8 Eosinophils # (Auto) 0.0 Basophils # (Auto) 0.0 CBC Comment DIFF FINAL Differential Comment Lactic Acid Level 1.1 Blood Urea Nitrogen 7 Creatinine 0.63 Random Glucose 85 Total Protein 7.1 Albumin 2.9 Calcium Level 7.7 Alkaline Phosphatase 103 Aspartate Amino Transf (AST/SGOT) 10 Alanine Aminotransferase (ALT/SGPT) 8 Total Bilirubin 0.5 Sodium Level 138 Potassium Level 3.6 Chloride Level 107 Carbon Dioxide Level 19.4 Anion Gap 12 Estimat Glomerular Filtration Rate 98 Urine Color LIGHT-YELLOW Urine Turbidity CLEAR Urine pH 7.0 Urine Specific Page 1.007 Urine Protein NEG Urine Glucose (UA) NEG Urine Ketones NEG Urine Occult Blood NEG Urine Nitrite NEG Urine Bilirubin NEG Urine Urobilinogen LESS THAN 2.0 Urine Leukocyte Esterase NEG Urine RBC LESS THAN 1 Urine Squamous Epithelial Cells <1 Microscopic Urinalysis Comment CATH-CULT NOT IND Date/Time Source Procedure Growth Status 09/22/17 14:10 Blood Peripheral Aerobic Blood Culture Pending Received 09/22/17 14:10 Blood Peripheral Anaerobic Blood Culture Pending Received Result Diagram: 09/22/17 1416 09/22/17 1539 Caprini VTE Risk Assessment Caprini VTE Risk Assessment: Mod/High Risk (score >= 2) Caprini Risk Assessment Model Point Value = 1 Point Value = 2 Point Value = 3 Point Value = 5 Age 41-60 Minor surgery BMI > 25 kg/m2 Swollen legs Varicose veins or History of unexplained or recurrent spontaneous Oral contraceptives or hormone replacement Sepsis (< 1 month) Serious lung disease, including pneumonia (< 1 month) Abnormal pulmonary function Acute myocardial infarction Congestive heart failure (< 1 month) History of inflammatory bowel disease Medical patient at bed rest Age 61-74 Arthroscopic surgery Major open surgery (> 45 min) Laparoscopic surgery (> 45 min) Malignancy Confined to bed (> 72 hours) Immobilizing plaster cast Central venous access Age >= 75 History of VTE Family history of VTE Factor V Leiden Prothrombin [id number] Lupus anticoagulant Anticardiolipin antibodies Elevated serum homocysteine Heparin-induced thrombocytopenia Other congenital or acquired thrombophilia Stroke (< 1 month) Elective arthroplasty Hip, pelvis, or leg fracture Acute spinal cord injury (< 1 month) Prophylaxis Regimen Total Risk Factor Score Risk Level Prophylaxis Regimen 0-1 Low Early ambulation 2 Moderate Order ONE of the following: *Sequential Compression Device (SCD) *Heparin 5000 units SQ BID 3-4 Higher Order ONE of the following medications: *Heparin 5000 units SQ TID *Enoxaparin/Lovenox 40 mg SQ daily (WT < 150 kg, CrCl > 30 mL/min) *Enoxaparin/Lovenox 30 mg SQ daily (WT < 150 kg, CrCl > 10-29 mL/min) *Enoxaparin/Lovenox 30 mg SQ BID (WT < 150 kg, CrCl > 30 mL/min) AND/OR *Sequential Compression Device (SCD) 5 or more Highest Order ONE of the following medications: *Heparin 5000 units SQ TID (Preferred with Epidurals) *Enoxaparin/Lovenox 40 mg SQ daily (WT < 150 kg, CrCl > 30 mL/min) *Enoxaparin/Lovenox 30 mg SQ daily (WT < 150 kg, CrCl > 10-29 mL/min) *Enoxaparin/Lovenox 30 mg SQ BID (WT < 150 kg, CrCl > 30 mL/min) AND *Sequential Compression Device (SCD) Assessment and Plan Problem List: (1) Sepsis ICD Code: A41.9 - Sepsis, unspecified organism Status: Acute (2) Cellulitis of axillary region ICD Code: L03.119 - Cellulitis of unspecified part of limb Status: Acute (3) Hypothyroidism ICD Code: E03.9 - Hypothyroidism, unspecified Assessment and Plan Soft tissue ultrasound of the axilla showed a 1 cm apparent lymph node in the left axilla without defined fluid or abscess. Admit the patient to the medical floor Sepsis present on admission with tachycardia, fever and leukocytosis. Source skin in left axilla. Chest x-ray reviewed by me without infiltrates or effusions. Patient status post IV vancomycin, IV aztreonam and IV Flagyl in the emergency department. Continue vancomycin, start IV Levaquin. ID consult. Continue home dose levothyroxine for hypothyroidism. Monitor vital signs IV fluids We will place on Toradol for pain control. SCDs and Lovenox for DVT prophylaxis. Code Status Full code Discussed Condition With ED physician, patient, RN. Physician Certification 2 Midnight Certification Type: Admission for Inpatient Services Order for Inpatient Services The services are ordered in accordance with Medicare regulations or non- Medicare payer requirements, as applicable. In the case of services not specified as inpatient-only, they are appropriately provided as inpatient services in accordance with the 2-midnight benchmark. Estimated LOS (days): 2 days is the estimated time the patient will need to remain in the hospital, assuming treatment plan goals are met and no additional complications. Post-Hospital Plan: Home Problem Qualifiers (1) Sepsis: Qualified Codes: A41.9 - Sepsis, unspecified organism Manuel Fonseca MD Sep 22, 2017 19:43
[2017-09-22] MEDS: SODIUM CHLOR 0.9% 1000 ML INJ 1,000 ML IV SCH (19:51)
[2017-09-22] MEDS: ACETAMINOPHEN 325 MG TAB PO PRN (19:51)
[2017-09-22] MEDS: LEVOFLOXACIN 750 MG PREMIX INJ 150 ML IV SCH (19:51)
[2017-09-22] MEDS ORDERED: ENOXAPARIN SODIUM 40 MG/0.4 ML SYRINGE SQ SCH (20:00)
[2017-09-22] MEDS: DOCUSATE SODIUM 50 MG/SENNA 8.6 MG TAB PO SCH (21:00)
[2017-09-22] MEDS: SODIUM CHLORIDE 0.9% FLUSH 10 ML FLUSH IV FLUSH SCH (21:00)
[2017-09-22 21:25] VITALS: BP 144/73; PULSE 102; RESP 16; TEMP 99.2; O2SAT 95
[2017-09-22 22:30] VITALS: PULSE 86
[2017-09-22] MEDS: KETOROLAC TROMETHAMINE 30 MG/ML (IVP) VIAL IV PUSH PRN (23:15)
[2017-09-23] VITALS (11 sets, daily range): BP systolic 102–175; BP diastolic 66–87; PULSE 74–91; RESP 18–20; TEMP 98–100.4; O2SAT 95–97
[2017-09-23] MEDS: VANCOMYCIN INJ 800 MG in SODIUM CHLOR 0.9% 250 ML INJ 250 ML IV SCH ×2 (04:19→16:40)
[2017-09-23] MEDS: SODIUM CHLOR 0.9% 1000 ML INJ 1,000 ML IV SCH ×3 (04:20→21:29)
[2017-09-23 05:45] LABS: AUTOMATED NEUTROPHIL # 10.1 TH/MM3 (1.8-7.7); BASOPHIL % 0.4 % (0.0-2.0); EOSINOPHIL # 0.1 TH/MM3 (0-0.4); EOSINOPHIL % 1.1 % (0.0-4.0); HEMATOCRIT 46.8 % (35.0-46.0); HEMOGLOBIN 15.8 GM/DL (11.6-15.3); LYMPH % 8.9 % (9.0-44.0); LYMPHOCYTE # 1.1 TH/MM3 (1.0-4.8); MEAN CELL VOLUME 91.8 FL (80.0-100.0); MEAN CORPUSCULAR HEMOGLOBIN 30.9 PG (27.0-34.0); MEAN CORPUSCULAR HGB CONC 33.7 % (32.0-36.0); MEAN PLATELET VOLUME 10.1 FL (7.0-11.0); MONO % 4.6 % (0.0-8.0); MONOCYTE # 0.5 TH/MM3 (0-0.9); PLATELET COUNT 146 TH/MM3 (150-450); RED BLOOD COUNT 5.09 MIL/MM3 (4.00-5.30); RED CELL DISTRIBUTION WIDTH 14.6 % (11.6-17.2); WHITE BLOOD COUNT 11.9 TH/MM3 (4.0-11.0)
[2017-09-23 06:14] LABS: ALBUMIN 2.7 GM/DL (3.4-5.0); ALT (GPT) 12 U/L (10-53); BICARBONATE 20.8 MEQ/L (21.0-32.0); BLOOD UREA NITROGEN 6 MG/DL (7-18); CALCIUM 8.6 MG/DL (8.5-10.1); CHLORIDE 105 MEQ/L (98-107); CREATININE 0.61 MG/DL (0.50-1.00); GLOMERULAR FILTRATION RATE 102 ML/MIN (>89); GLUCOSE,RANDOM 73 MG/DL (74-106); SODIUM (NA) 138 MEQ/L (136-145)
[2017-09-23 06:15] LABS: ALKALINE PHOSPHATASE 104 U/L (45-117); AST (GOT) 13 U/L (15-37); TOTAL BILIRUBIN ADULT 0.6 MG/DL (0.2-1.0)
[2017-09-23] MEDS: DOCUSATE SODIUM 50 MG/SENNA 8.6 MG TAB PO SCH ×2 (08:07→21:00)
[2017-09-23] MEDS: KETOROLAC TROMETHAMINE 30 MG/ML (IVP) VIAL IV PUSH PRN ×3 (08:09→23:04)
--- NOTE | 2017-09-23 08:10 | HHI.PR ---
Subjective Remarks fever with chills with persistent pain left UE- range of motion limited by pain and swelling started out as a fever, pimple about a week ago- axillary area and lanced it herself- serosanguinous fluid obtained seen as OP but unable to buy prescription smoker - cutting down recovering alcoholic Objective Vitals Vital Signs Date Time Temp Pulse Resp B/P (MAP) Pulse Ox O2 Delivery O2 Flow Rate FiO2 09/23/17 00:48 Room Air 09/23/17 00:48 99.7 89 18 148/66 (93) 95 09/23/17 00:00 83 09/22/17 22:30 86 09/22/17 22:00 Room Air 09/22/17 21:25 99.2 102 16 144/73 (96) 95 09/22/17 18:14 100.9 09/22/17 17:21 98 19 147/74 (98) 97 Room Air 09/22/17 13:52 107 24 128/67 (87) 95 Room Air 09/22/17 13:06 99.7 123 16 153/99 (117) 96 I/O 09/22/17 09/22/17 09/22/17 09/23/17 09/23/17 09/23/17 07:00 15:00 23:00 07:00 15:00 23:00 Intake Total 2450 ml 360 ml Output Total 750 ml Balance 2450 ml -390 ml Intake Oral 360 ml IV Total 2450 ml Output Urine Total 750 ml # Bowel Movements 0 Result Diagram: 09/23/17 0449 09/23/17 0500 Imaging Last Impressions Chest X-Ray 09/22/17 1326 Signed Impressions: CONCLUSION: Negative examination. Soft Tissue Ultrasound 09/22/17 0000 Signed Impressions: CONCLUSION: 1. Probable lymph node as above. Objective Remarks awake and alert oriented x 3, no acute distress anicteric no nuchal rigidity lungs- no rales, occasional rhonchi regular rhythm abdomens- fot, nontender, good bowel sounds extremities- LUE- extensive erythema, + swelling of the left UE swelling extends to the left upper chest wall- near axillary area - + induration on exam left axillary area- + small abscess - draining serosanguinous fluid, non foul A/P Problem List: (1) Sepsis ICD Code: A41.9 - Sepsis, unspecified organism Status: Acute (2) Cellulitis of axillary region ICD Code: L03.119 - Cellulitis of unspecified part of limb Status: Acute (3) Hypothyroidism ICD Code: E03.9 - Hypothyroidism, unspecified Assessment and Plan 56 years old female no signigican PMH except for hypothyroidism Sepsis secondary to LUE cellulitis with - - possible extension to left upper chest wall area - + induration on exam Infected Left axillary LN vs abscess- now spontaneously draining moderate amount of serosanguinous fluid + possible Lymphangitis - get CT of the chest wall if no improvement. Warm compress to area - ff cultures -continue on IV antibiotics- vancomycin, Levaquin. ID consult. - wound care team consult- hypothyroidism. - continue home synthroid Monitor vital signs IV fluids We will place on Toradol for pain control. SCDs and Lovenox for DVT prophylaxis. Code Status Full code Problem Qualifiers (1) Sepsis: Qualified Codes: A41.9 - Sepsis, unspecified organism [place] MD Sep 23, 2017 08:10
[2017-09-23] MEDS: SODIUM CHLORIDE 0.9% FLUSH 10 ML FLUSH IV FLUSH SCH ×2 (09:00→21:00)
[2017-09-23] MEDS: LEVOTHYROXINE SODIUM 88 MCG TAB PO SCH (09:00)
--- NOTE | 2017-09-23 15:19 | PD.ID.CON ---
History of Present Illness Service ID Consult Requested By Dr barragan Reason for Consult L axillae infection Primary Care Physician Unknown Diagnoses: History of Present Illness 56 yo female presented with 4 days of very painful indurated swelling in L axillae area It started as a bug bite She endorses fever, chills, nausea No other complaints Pt reports severe allergic reaction to PCN (anaphilactic) in childhood, but apparently taking Keflex uneventfully 6-12 mos ago started initialy on azactam + vanco+ flagyl, then switched to levaquin + vancomycin she reports some intermittent drainage US showed 1 cm apparent lymph node left axilla without defined fluid or abscess. Review of Systems Constitutional: COMPLAINS OF: Fever, Chills Gastrointestinal: COMPLAINS OF: Nausea Integumentary: COMPLAINS OF: Rash Except as stated in HPI: all other systems reviewed are Neg Past Family Social History Allergies: Coded Allergies: Sulfa (Sulfonamide Antibiotics) (Verified Allergy, Severe, SHOCK, 09/22/17) bee venom protein (honey bee) (Verified Allergy, Severe, SHOCK, 09/22/17) cortisone (Verified Allergy, Severe, Psychosis, 09/22/17) penicillin G (Verified Allergy, Severe, SHOCK, 09/22/17) procaine (Verified Allergy, Severe, SOB, 09/22/17) Uncoded Allergies: ALL NARCOTICS (Allergy, Severe, AGITATION, 01/03/15) . TOMATO SEEDS (Allergy, Severe, "CAN'T BREATH", 01/03/15) . eggplant seeds (Allergy, Mild, Hives, 02/11/16) Past Medical History Hypothyroidism Past Surgical History Tubal ligation. Cyst in the neck removal. Plastic surgery for neck scar. Active Ordered Medications levaquin + vancomycin Family History Patient's brother had diabetes mellitus. Patient's father had CAD. Social History 10 cigarettes per day. Denies alcohol intake but has history of alcohol abuse and states has been sober for the last 26 years. Denies illegal drug use. Physical Exam Vital Signs Vital Signs Date Time Temp Pulse Resp B/P (MAP) Pulse Ox O2 Delivery O2 Flow Rate FiO2 09/23/17 12:00 98.3 82 18 143/83 (103) 96 09/23/17 09:31 Room Air 09/23/17 09:00 99.0 84 18 102/72 (82) 97 09/23/17 07:52 91 09/23/17 04:00 74 09/23/17 00:48 Room Air 09/23/17 00:48 99.7 89 18 148/66 (93) 95 09/23/17 00:00 83 09/22/17 22:30 86 09/22/17 22:00 Room Air 09/22/17 21:25 99.2 102 16 144/73 (96) 95 09/22/17 18:14 100.9 09/22/17 17:21 98 19 147/74 (98) 97 Room Air Physical Exam CONSTITUTIONAL/GENERAL: This is an adequately nourished patient, in no apparent distress. TUBES/LINES/DRAINS: SKIN: No jaundice, diffuse rashes STATUS LOCALIS: L axilla with erythmatous induration spreading to anterior axillae wall and a very tender nodule HEAD: Atraumatic. Normocephalic. EYES: Pupils equal and round and reactive. Extraocular motions intact. No scleral icterus. No injection or drainage. Fundi not examined. ENT: Hearing grossly normal. Nose without bleeding or purulent drainage. Throat without visible erythema, exudates, masses, or lesions. NECK: Trachea midline. Supple, nontender. No palpable thyroid enlargement or nodularity. CARDIOVASCULAR: Regular rate and rhythm without murmurs, gallops, or rubs. No JVD. Peripheral pulses symmetric. RESPIRATORY/CHEST: Symmetric, unlabored respirations. Clear to auscultation. Breath sounds equal bilaterally. No wheezes, rales, or rhonchi. GASTROINTESTINAL: Abdomen soft, non-tender, nondistended. No hepato-splenomegaly , or palpable masses. No guarding. Bowel sounds present. GENITOURINARY: Without palpable bladder distension. Hopson catheter in place. MUSCULOSKELETAL: Extremities without clubbing, cyanosis, or edema. No joint tenderness or effusion noted. No calf tenderness. No mottling or clubbing. LYMPHATICS: No palpable cervical or supraclavicular adenopathy. NEUROLOGICAL: Awake and alert. Motor and sensory grossly within normal limits. Follows commands. Cognitively sharp. Moves all extremities. PSYCHIATRIC: No obvious anxiety/depression. no apparent hallucinations or other psychotic thought process. Laboratory Laboratory Tests Test 09/22/17 15:39 09/22/17 15:40 09/23/17 04:49 09/23/17 05:00 Blood Urea Nitrogen 7 6 Creatinine 0.63 0.61 Random Glucose 85 73 Total Protein 7.1 7.0 Albumin 2.9 2.7 Calcium Level 7.7 8.6 Alkaline Phosphatase 103 104 Aspartate Amino Transf (AST/SGOT) 10 13 Alanine Aminotransferase (ALT/SGPT) 8 12 Total Bilirubin 0.5 0.6 Sodium Level 138 138 Potassium Level 3.6 3.6 Chloride Level 107 105 Carbon Dioxide Level 19.4 20.8 Anion Gap 12 12 Estimat Glomerular Filtration Rate 98 102 Urine Color LIGHT-YELLOW Urine Turbidity CLEAR Urine pH 7.0 Urine Specific [place] 1.007 Urine Protein NEG Urine Glucose (UA) NEG Urine Ketones NEG Urine Occult Blood NEG Urine Nitrite NEG Urine Bilirubin NEG Urine Urobilinogen LESS THAN 2.0 Urine Leukocyte Esterase NEG Urine RBC LESS THAN 1 Urine Squamous Epithelial Cells <1 Microscopic Urinalysis Comment CATH-CULT NOT IND White Blood Count 11.9 Red Blood Count 5.09 Hemoglobin 15.8 Hematocrit 46.8 Mean Corpuscular Volume 91.8 Mean Corpuscular Hemoglobin 30.9 Mean Corpuscular Hemoglobin Concent 33.7 Red Cell Distribution Width 14.6 Platelet Count 146 Mean Platelet Volume 10.1 Neutrophils (%) (Auto) 85.0 Lymphocytes (%) (Auto) 8.9 Monocytes (%) (Auto) 4.6 Eosinophils (%) (Auto) 1.1 Basophils (%) (Auto) 0.4 Neutrophils # (Auto) 10.1 Lymphocytes # (Auto) 1.1 Monocytes # (Auto) 0.5 Eosinophils # (Auto) 0.1 Basophils # (Auto) 0.0 CBC Comment DIFF FINAL Differential Comment Date/Time Source Procedure Growth Status 09/22/17 14:10 Blood Peripheral Aerobic Blood Culture - Preliminary NO GROWTH IN 1 DAY Resulted 09/22/17 14:10 Blood Peripheral Anaerobic Blood Culture - Preliminary NO GROWTH IN 1 DAY Resulted Result Diagram: 09/23/17 0449 09/23/17 0500 Imaging Last Impressions Chest X-Ray 09/22/17 1326 Signed Impressions: CONCLUSION: Negative examination. Soft Tissue Ultrasound 09/22/17 0000 Signed Impressions: CONCLUSION: 1. Probable lymph node as above. Assessment and Plan Assessment and Plan L axilla skin infection, phlegmone consult gen surgeon cont vancomycin Sylvie Sanders MD Sep 23, 2017 15:19
[2017-09-23] MEDS: ACETAMINOPHEN 325 MG TAB PO PRN (16:39)
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
[2017-09-23] MEDS ORDERED: NICOTINE 14 MG/24 HR PATCH T-DERMAL ONE (18:30)
[2017-09-23] MEDS: LEVOFLOXACIN 750 MG PREMIX INJ 150 ML IV SCH (21:29)
[2017-09-24] VITALS: BP 130/65; PULSE 72; PULSE 80; RESP 20; TEMP 97.9; O2SAT 98
[2017-09-24 04:00] VITALS: BP 146/82; PULSE 67; PULSE 82; RESP 20; TEMP 97.7; O2SAT 93
[2017-09-24] MEDS ORDERED: SODIUM CHLORID 0.9% 500 ML IV PRN (04:00)
[2017-09-24] MEDS ORDERED: CHLORHEXIDINE GLUCONATE 2 % 1 PACK (2 CLOTHS) TOPICAL PRN (04:00)
[2017-09-24] MEDS ORDERED: LACTATED RINGER'S 1000 ML IV PRN (04:00)
[2017-09-24] MEDS ORDERED: POVIDONE IODINE 5% (ANTISEPSIS KIT) 4 APPLICATIONS EACH NARE PRN (04:00)
[2017-09-24] MEDS ORDERED: PHARMACY ORDERED LAB ONE (04:45)
[2017-09-24] MEDS: VANCOMYCIN INJ 800 MG in SODIUM CHLOR 0.9% 250 ML INJ 250 ML IV SCH (05:15)
[2017-09-24] MEDS: LEVOTHYROXINE SODIUM 88 MCG TAB PO SCH (06:13)
[2017-09-24 07:34] VITALS: PULSE 82
[2017-09-24] MEDS ORDERED: ACETAMINOPHEN 1000 MG/100 ML 100 ML IV ONE (08:03)
--- NOTE | 2017-09-24 08:33 | HHI.PR ---
Objective Vitals Vital Signs Date Time Temp Pulse Resp B/P (MAP) Pulse Ox O2 Delivery O2 Flow Rate FiO2 09/24/17 04:00 82 09/24/17 04:00 97.7 67 20 146/82 (103) 93 09/24/17 00:00 97.9 72 20 130/65 (86) 98 09/24/17 00:00 80 09/23/17 22:00 Room Air 09/23/17 20:00 98.1 78 20 137/75 (95) 97 09/23/17 20:00 82 09/23/17 18:00 98.0 09/23/17 16:00 100.4 79 18 175/87 (116) 97 09/23/17 15:38 90 09/23/17 12:00 98.3 82 18 143/83 (103) 96 09/23/17 11:54 80 09/23/17 09:31 Room Air 09/23/17 09:00 99.0 84 18 102/72 (82) 97 I/O 09/23/17 09/23/17 09/23/17 09/24/17 09/24/17 09/24/17 07:00 15:00 23:00 07:00 15:00 23:00 Intake Total 360 ml 1000 ml 1799 ml 220 ml Output Total 750 ml 1700 ml 400 ml Balance -390 ml 1000 ml 99 ml -180 ml Intake Oral 360 ml 800 ml 220 ml IV Total 1000 ml 999 ml Output Urine Total 750 ml 1700 ml 400 ml # Bowel Movements 0 0 1 Result Diagram: 09/23/17 0449 09/23/17 0500 Lake Jasso MD Sep 24, 2017 08:33
[2017-09-24] MEDS: SODIUM CHLORIDE 0.9% FLUSH 10 ML FLUSH IV FLUSH SCH ×2 (09:00→19:53)
[2017-09-24] MEDS: DOCUSATE SODIUM 50 MG/SENNA 8.6 MG TAB PO SCH ×2 (09:00→19:53)
[2017-09-24] MEDS ORDERED: BUPIVACAINE/EPINEPHRINE 0.5% PF 10 ML VIAL ONE (09:06)
--- NOTE | 2017-09-24 09:42 | HHI.PR ---
cc: Daquan Parrish MD Immediate Post Op Note Procedure Date: Sep 24, 2017 Pre Op Diagnosis: (1) Abscess of axilla, right (2) Cellulitis of axillary region (3) Hypothyroidism (4) Sepsis Post Op Diagnosis: (1) Sepsis (2) Cellulitis of axillary region (3) Abscess of axilla, right (4) S/P debridement (5) Encounter for drainage of abscess Surgeon: Daquan Parrish Dot Etcher(s): Please refer to OR records Procedure: Sharp debridement irrigation incision drainage of left axillary abscess 3 x 5 cm with application of VAC dressing appliance Findings: Necrotic subcutaneous tissue skin Complications: None Specimen(s) removed: Necrotic skin subcutaneous tissue Estimated blood loss: 20 cc Anesthesia: General Drains: None, Other (VAC dressing appliance) IVF Patient to: PACU Implant/Devices: SEE IMPLANT LOG (if applicable) Date/Time of Procedure: SEE SURGICAL CARE RECORD Daquan Parrish MD Sep 24, 2017 09:42
[2017-09-24] MEDS ORDERED: MIDAZOLAM HCL 2 MG/2 ML VIAL ONE (09:46)
--- NOTE | 2017-09-24 09:55 | MP ---
cc: Daquan Parrish MD, Joseph D MD DATE OF OPERATION: 09/24/2017 PREOPERATIVE DIAGNOSIS: Left axillary abscess. POSTOPERATIVE DIAGNOSIS: Left axillary abscess. PROCEDURE PERFORMED: Wide incision and drainage, irrigation and debridement of necrotic skin, subcutaneous tissue and fascia involving the left axillary region measuring 3 x 5 cm. ANESTHESIA: General. SURGEON: Daquan Parrish MD INDICATIONS: This is an unfortunate 56-year-old lady who developed an abscess in her left axillary region. Plans were made for above. PROCEDURE: The patient was taken to the operating room and placed in the supine position. After anesthesia, her left axillary region is prepped. She was placed in the right lateral decubitus position slightly with a bump under her shoulder. Her arm was raised above her head. The area was then prepped with Betadine. Timeout was done. She is already on antibiotics. We make a curvilinear incision incorporating the necrotic skin, which was excised. Subcutaneous tissue is encountered which is necrotic skin and debrided with sharp scissors and knives. The abscess cavity was drained. It is cultured. We debride into the deep axillary space avoiding the axillary vein and artery. There was some bleeding tissue that is oversewn with a Vicryl suture. After we debrided the necrotic tissue in the deep subcutaneous area in the axillary region with sharp scissors and knives and we had adequate hemostasis, we then elected to pack this with a black sponge for the VAC appliance and the appliance was applied in the typical fashion with a good seal. The patient was then brought to the recovery room with no immediate postop complications. Daquan Parrish MD JDB/DL , 09:42 AM , 09:54 AM
--- NOTE | 2017-09-24 10:12 | HHI.PR ---
Subjective Remarks seen 2 pm back from surgery "slight pain" having loose stools- but received senna and colace yesterday - no BM for 3 days Objective Vitals Vital Signs Date Time Temp Pulse Resp B/P (MAP) Pulse Ox O2 Delivery O2 Flow Rate FiO2 09/24/17 09:45 80 15 108/60 (76) 100 Nasal Cannula 3 09/24/17 09:35 97.6 80 15 98/53 (68) 99 Nasal Cannula 3 09/24/17 07:34 82 09/24/17 07:34 Room Air 09/24/17 04:00 82 09/24/17 04:00 97.7 67 20 146/82 (103) 93 09/24/17 00:00 97.9 72 20 130/65 (86) 98 09/24/17 00:00 80 09/23/17 22:00 Room Air 09/23/17 20:00 98.1 78 20 137/75 (95) 97 09/23/17 20:00 82 09/23/17 18:00 98.0 09/23/17 16:00 100.4 79 18 175/87 (116) 97 09/23/17 15:38 90 09/23/17 12:00 98.3 82 18 143/83 (103) 96 09/23/17 11:54 80 I/O 09/23/17 09/23/17 09/23/17 09/24/17 09/24/17 09/24/17 07:00 15:00 23:00 07:00 15:00 23:00 Intake Total 360 ml 1000 ml 1799 ml 220 ml Output Total 750 ml 1700 ml 400 ml Balance -390 ml 1000 ml 99 ml -180 ml Intake Oral 360 ml 800 ml 220 ml IV Total 1000 ml 999 ml Output Urine Total 750 ml 1700 ml 400 ml # Bowel Movements 0 0 1 Result Diagram: 09/23/17 0449 09/23/17 0500 Imaging Last Impressions Chest X-Ray 09/22/17 1326 Signed Impressions: CONCLUSION: Negative examination. Soft Tissue Ultrasound 09/22/17 0000 Signed Impressions: CONCLUSION: 1. Probable lymph node as above. Objective Remarks awake and alert oriented x 3, no acute distress anicteric no nuchal rigidity lungs- no rales, occasional rhonchi regular rhythm abdomens- soft , nontender, good bowel sounds extremities- axillary area- with VAC in place swelling and eruthema that extends to the left upper chest wall- near axillary area - slightly improved Procedures 09/24 Sharp debridement irrigation incision drainage of left axillary abscess 3 x 5 cm with application of VAC dressing appliance A/P Problem List: (1) Sepsis ICD Code: A41.9 - Sepsis, unspecified organism Status: Acute (2) Cellulitis of axillary region ICD Code: L03.119 - Cellulitis of unspecified part of limb Status: Acute (3) Hypothyroidism ICD Code: E03.9 - Hypothyroidism, unspecified Assessment and Plan 56 years old female no signigicant PMH except for hypothyroidism Sepsis secondary to left axillary abscess with cellulitis + possible Lymphangitis - ff cultures -continue on IV antibiotics- vancomycin, Levaquin. - ff final c and s hypothyroidism. - continue home synthroid IV fluids We will place on Toradol for pain control. SCDs and Lovenox for DVT prophylaxis. Code Status Full code Problem Qualifiers (1) Sepsis: Qualified Codes: A41.9 - Sepsis, unspecified organism Lake Jasso MD Sep 24, 2017 10:12
[2017-09-24] MEDS ORDERED: DO NOT ADM ANY ANTICOAGULANT DRUGS PRN (10:30)
[2017-09-24] MEDS: NICOTINE 14 MG/24 HR PATCH T-DERMAL SCH (11:45)
[2017-09-24] MEDS: REMOVE OLD PATCH T-DERMAL SCH (11:46)
[2017-09-24] MEDS: SODIUM CHLOR 0.9% 1000 ML INJ 1,000 ML IV SCH (11:47)
[2017-09-24 12:00] VITALS: BP 128/79; PULSE 67; RESP 17; TEMP 97.3; O2SAT 91
[2017-09-24] MEDS ORDERED: KETOROLAC TROMETHAMINE 30 MG/ML (IVP) VIAL IV PUSH ONE (12:00)
[2017-09-24] MEDS ORDERED: ONDANSETRON HCL 4 MG/2 ML VIAL IV PUSH ONE (12:00)
[2017-09-24] MEDS ORDERED: PROPOFOL 200 MG/20 ML AMP IV ONE (12:00)
[2017-09-24] MEDS: VANCOMYCIN 1,000 MG/NS 250 ML IV SCH ×2 (15:04)
[2017-09-24 16:00] VITALS: BP 136/82; PULSE 77; RESP 19; TEMP 97.8; O2SAT 97
--- NOTE | 2017-09-24 16:21 | EKG ---
Date Performed: 09/24/2017 Time Performed: 00:30:36 PTAGE: 56 years EKG: Sinus rhythm Poor R wave progression - probable normal variant Borderline ECG PREVIOUS TRACING : 08/20/2008 18.35 No significant change from previous tracing noted. DOCTOR: Randy Aly Interpretating Date/Time 09/24/2017 16:19:06
[2017-09-24] MEDS: LEVOFLOXACIN 750 MG PREMIX INJ 150 ML IV SCH (19:52)
[2017-09-24 20:00] VITALS: BP 155/77; PULSE 76; PULSE 77; RESP 18; TEMP 98; O2SAT 98
[2017-09-25] VITALS (8 sets, daily range): BP systolic 121–181; BP diastolic 69–95; PULSE 60–90; RESP 16–18; TEMP 97.4–98.3; O2SAT 95–97
[2017-09-25] MEDS: KETOROLAC TROMETHAMINE 30 MG/ML (IVP) VIAL IV PUSH PRN ×3 (01:09→21:45)
[2017-09-25] MEDS: VANCOMYCIN 1,000 MG/NS 250 ML IV SCH ×4 (04:20→15:00)
[2017-09-25] MEDS: LEVOTHYROXINE SODIUM 88 MCG TAB PO SCH (06:31)
--- NOTE | 2017-09-25 08:15 | HHI.PR ---
Subjective Remarks awake and alert, pain left axillary area good po, denies any nausea or vomiting, states no constipation Objective Vitals Vital Signs Date Time Temp Pulse Resp B/P (MAP) Pulse Ox O2 Delivery O2 Flow Rate FiO2 09/25/17 04:00 97.9 66 16 127/81 (96) 97 09/25/17 04:00 60 09/25/17 02:09 18 09/25/17 00:00 98.0 78 18 151/91 (111) 97 09/25/17 00:00 75 09/24/17 20:00 77 09/24/17 20:00 98.0 76 18 155/77 (103) 98 09/24/17 20:00 Room Air 09/24/17 16:00 97.8 77 19 136/82 (100) 97 09/24/17 12:00 97.3 67 17 128/79 (95) 91 09/24/17 10:30 97.6 70 16 130/74 (92) 94 Room Air 09/24/17 10:15 72 15 125/69 (87) 93 Room Air 09/24/17 10:00 75 15 111/63 (79) 92 Room Air 09/24/17 09:45 80 15 108/60 (76) 100 Nasal Cannula 3 09/24/17 09:35 97.6 80 15 98/53 (68) 99 Nasal Cannula 3 I/O 09/24/17 09/24/17 09/24/17 09/25/17 09/25/17 09/25/17 07:00 15:00 23:00 07:00 15:00 23:00 Intake Total 220 ml 1600 ml 275 ml 480 ml Output Total 400 ml 25 ml 700 ml 1000 ml Balance -180 ml 1575 ml -425 ml -520 ml Intake Oral 220 ml 275 ml 480 ml IV Total 1000 ml Other 600 ml Output Urine Total 400 ml 0 ml 700 ml 1000 ml Estimated Blood Loss 25 ml # Bowel Movements 1 0 0 Result Diagram: 09/23/17 0449 09/23/17 0500 Imaging Last Impressions Chest X-Ray 09/22/17 1326 Signed Impressions: CONCLUSION: Negative examination. Soft Tissue Ultrasound 09/22/17 0000 Signed Impressions: CONCLUSION: 1. Probable lymph node as above. Objective Remarks awake and alert oriented x 3, no acute distress anicteric no nuchal rigidity lungs- no rales, no wheezes , no rhonchi regular rhythm abdomens- soft , nontender, good bowel sounds extremities- axillary area- with VAC in place still with mild swelling and erythema that extends to the left upper chest wall- near axillary area LE- no edema Procedures 09/24 Sharp debridement irrigation incision drainage of left axillary abscess 3 x 5 cm with application of VAC dressing appliance A/P Problem List: (1) Sepsis ICD Code: A41.9 - Sepsis, unspecified organism Status: Acute (2) Cellulitis of axillary region ICD Code: L03.119 - Cellulitis of unspecified part of limb Status: Acute (3) Hypothyroidism ICD Code: E03.9 - Hypothyroidism, unspecified Assessment and Plan 56 years old female no signigicant PMH except for hypothyroidism Sepsis secondary to left axillary abscess S/P I and D with VAC placement 09/24- MRSA + possible Lymphangitis continue on IV antibiotics- vancomycin - transition to po antiibotics- will d/w ID -Percocet prn for pain- d/w her- denies any allergy to narcotics- per aptient had Percocet and Lortab in the past with no reaction hypothyroidism. - continue home synthroid IV fluids We will place on Toradol for pain control. SCDs and Lovenox for DVT prophylaxis. Incentive spirometry hourly Code Status Full code Problem Qualifiers (1) Sepsis: Qualified Codes: A41.9 - Sepsis, unspecified organism Lake Jasso MD Sep 25, 2017 08:15
[2017-09-25] MEDS: SODIUM CHLORIDE 0.9% FLUSH 10 ML FLUSH IV FLUSH SCH ×2 (08:59→21:44)
[2017-09-25] MEDS: NICOTINE 14 MG/24 HR PATCH T-DERMAL SCH (09:00)
[2017-09-25] MEDS: DOCUSATE SODIUM 50 MG/SENNA 8.6 MG TAB PO SCH ×2 (09:00→21:43)
[2017-09-25] MEDS: REMOVE OLD PATCH T-DERMAL SCH (09:01)
[2017-09-25 12:53] LABS: AUTOMATED NEUTROPHIL # 4.2 TH/MM3 (1.8-7.7); BASOPHIL # 0.1 TH/MM3 (0-0.2); BASOPHIL % 1.4 % (0.0-2.0); EOSINOPHIL # 0.3 TH/MM3 (0-0.4); EOSINOPHIL % 4.3 % (0.0-4.0); HEMATOCRIT 40.6 % (35.0-46.0); HEMOGLOBIN 13.9 GM/DL (11.6-15.3); LYMPH % 21.5 % (9.0-44.0); LYMPHOCYTE # 1.3 TH/MM3 (1.0-4.8); MEAN CELL VOLUME 90.6 FL (80.0-100.0); MEAN CORPUSCULAR HEMOGLOBIN 31.1 PG (27.0-34.0); MEAN CORPUSCULAR HGB CONC 34.3 % (32.0-36.0); MEAN PLATELET VOLUME 10.7 FL (7.0-11.0); MONO % 4.8 % (0.0-8.0); MONOCYTE # 0.3 TH/MM3 (0-0.9); PLATELET COUNT 153 TH/MM3 (150-450); RED BLOOD COUNT 4.48 MIL/MM3 (4.00-5.30); RED CELL DISTRIBUTION WIDTH 14.3 % (11.6-17.2); WHITE BLOOD COUNT 6.1 TH/MM3 (4.0-11.0)
[2017-09-25 13:12] LABS: BICARBONATE 24.2 MEQ/L (21.0-32.0); CALCIUM 7.9 MG/DL (8.5-10.1); CREATININE 0.57 MG/DL (0.50-1.00)
--- NOTE | 2017-09-25 13:33 | HHI.IDPN ---
Subjective Subjective Remarks s/p I& D and VAC placement yday by Dr Egan she c/o pain L axillae area no fever + MRSA from the wound Antibiotics vancomycin Allergies: Coded Allergies: Sulfa (Sulfonamide Antibiotics) (Verified Allergy, Severe, SHOCK, 09/22/17) bee venom protein (honey bee) (Verified Allergy, Severe, SHOCK, 09/22/17) cortisone (Verified Allergy, Severe, Psychosis, 09/22/17) penicillin G (Verified Allergy, Severe, SHOCK, 09/22/17) procaine (Verified Allergy, Severe, SOB, 09/22/17) Uncoded Allergies: ALL NARCOTICS (Allergy, Severe, AGITATION, 01/03/15) . TOMATO SEEDS (Allergy, Severe, "CAN'T BREATH", 01/03/15) . eggplant seeds (Allergy, Mild, Hives, 02/11/16) Objective . Vital Signs Date Time Temp Pulse Resp B/P (MAP) Pulse Ox O2 Delivery O2 Flow Rate FiO2 09/25/17 08:00 97.8 65 18 157/90 (112) 96 09/25/17 04:00 97.9 66 16 127/81 (96) 97 09/25/17 04:00 60 09/25/17 02:09 18 09/25/17 00:00 98.0 78 18 151/91 (111) 97 09/25/17 00:00 75 09/24/17 20:00 77 09/24/17 20:00 98.0 76 18 155/77 (103) 98 09/24/17 20:00 Room Air 09/24/17 16:00 97.8 77 19 136/82 (100) 97 . Laboratory Tests Test 09/25/17 11:12 White Blood Count 6.1 TH/MM3 Red Blood Count 4.48 MIL/MM3 Hemoglobin 13.9 GM/DL Hematocrit 40.6 % Mean Corpuscular Volume 90.6 FL Mean Corpuscular Hemoglobin 31.1 PG Mean Corpuscular Hemoglobin Concent 34.3 % Red Cell Distribution Width 14.3 % Platelet Count 153 TH/MM3 Mean Platelet Volume 10.7 FL Neutrophils (%) (Auto) 68.0 % Lymphocytes (%) (Auto) 21.5 % Monocytes (%) (Auto) 4.8 % Eosinophils (%) (Auto) 4.3 % Basophils (%) (Auto) 1.4 % Neutrophils # (Auto) 4.2 TH/MM3 Lymphocytes # (Auto) 1.3 TH/MM3 Monocytes # (Auto) 0.3 TH/MM3 Eosinophils # (Auto) 0.3 TH/MM3 Basophils # (Auto) 0.1 TH/MM3 CBC Comment AUTO DIFF Hematology Comments Laboratory Tests Test 09/25/17 11:12 Microbiology Date/Time Source Procedure Growth Status 09/22/17 14:10 Blood Peripheral Aerobic Blood Culture - Preliminary NO GROWTH IN 3 DAYS Resulted 09/22/17 14:10 Blood Peripheral Anaerobic Blood Culture - Preliminary NO GROWTH IN 3 DAYS Resulted 09/22/17 14:00 Blood Peripheral Aerobic Blood Culture - Preliminary NO GROWTH IN 3 DAYS Resulted 09/22/17 14:00 Blood Peripheral Anaerobic Blood Culture - Preliminary NO GROWTH IN 3 DAYS Resulted 09/24/17 09:10 Abscess Arm Fungal Smear - Final NO FUNGAL ELEMENTS SEEN. Resulted 09/24/17 09:10 Abscess Arm Fungal Culture Pending Resulted 09/24/17 09:10 Abscess Arm Acid Fast Stain - Final NO ACID FAST BACILLI SEEN Resulted 09/24/17 09:10 Abscess Arm Mycobacterial Culture Pending Resulted 09/24/17 09:10 Abscess Arm Gram Stain - Final Resulted 09/24/17 09:10 Abscess Arm Wound Culture Pending Resulted 09/23/17 17:17 Abscess Other Gram Stain - Final Complete 09/23/17 17:17 Wound Culture - Final S. Aureus Mrsa Complete Imaging Last Impressions Chest X-Ray 09/22/17 1326 Signed Impressions: CONCLUSION: Negative examination. Soft Tissue Ultrasound 09/22/17 0000 Signed Impressions: CONCLUSION: 1. Probable lymph node as above. Physical Exam CONSTITUTIONAL/GENERAL: This is an adequately nourished patient, in no apparent distress. TUBES/LINES/DRAINS: SKIN: No jaundice, diffuse rashes STATUS LOCALIS: L axilla with VAC in place CARDIOVASCULAR: Regular rate and rhythm without murmurs, gallops, or rubs. No JVD. Peripheral pulses symmetric. RESPIRATORY/CHEST: Symmetric, unlabored respirations. Clear to auscultation. Breath sounds equal bilaterally. No wheezes, rales, or rhonchi. GASTROINTESTINAL: Abdomen soft, non-tender, nondistended. No hepato-splenomegaly , or palpable masses. No guarding. Bowel sounds present. MUSCULOSKELETAL: Extremities without clubbing, cyanosis, or edema. No joint tenderness or effusion noted. No calf tenderness. No mottling or clubbing. NEUROLOGICAL: Awake and alert. Non focal PSYCHIATRIC: calm cooperative Assessment & Plan Remarks L axilla phlegmone, abscess, sp debridement, VAC placed cont vancomycin anticipate eventual transition to po abx Sylvie Childress MD Sep 25, 2017 13:33
[2017-09-25] MEDS ORDERED: Vancomycin Consult Pharmacy 1 EA OTHER SCH (13:45)
[2017-09-25] MEDS ORDERED: ONDANSETRON ODT 4 MG TAB PO PRN (14:00)
[2017-09-25] MEDS: oxyCODONE/ACETAMINOPHEN 5 MG/325 MG TAB PO PRN (14:31)
[2017-09-25] MEDS: POTASSIUM CHLOR 10 MEQ PREMIX 100 ML IV SCH ×3 (14:34→17:08)
--- NOTE | 2017-09-25 20:25 | HHI.PR ---
Subjective Subjective Notes feels better, no new c/o Objective Vitals/I&O Vital Signs Date Time Temp Pulse Resp B/P (MAP) Pulse Ox O2 Delivery O2 Flow Rate FiO2 09/25/17 16:00 98.3 69 18 181/95 (123) 95 09/25/17 08:00 Room Air 09/24/17 09:45 3 Labs Laboratory Tests Test 09/25/17 11:12 White Blood Count 6.1 Red Blood Count 4.48 Hemoglobin 13.9 Hematocrit 40.6 Mean Corpuscular Volume 90.6 Mean Corpuscular Hemoglobin 31.1 Mean Corpuscular Hemoglobin Concent 34.3 Red Cell Distribution Width 14.3 Platelet Count 153 Mean Platelet Volume 10.7 Neutrophils (%) (Auto) 68.0 Lymphocytes (%) (Auto) 21.5 Monocytes (%) (Auto) 4.8 Eosinophils (%) (Auto) 4.3 Basophils (%) (Auto) 1.4 Neutrophils # (Auto) 4.2 Lymphocytes # (Auto) 1.3 Monocytes # (Auto) 0.3 Eosinophils # (Auto) 0.3 Basophils # (Auto) 0.1 CBC Comment AUTO DIFF Differential Comment AUTO DIFF CONFIRMED Hematology Comments Blood Urea Nitrogen 2 Creatinine 0.57 Random Glucose 145 Calcium Level 7.9 Sodium Level 143 Potassium Level 2.8 Chloride Level 108 Carbon Dioxide Level 24.2 Anion Gap 11 Estimat Glomerular Filtration Rate 110 Date/Time Source Procedure Growth Status 09/22/17 14:10 Blood Peripheral Aerobic Blood Culture - Preliminary NO GROWTH IN 3 DAYS Resulted 09/22/17 14:10 Blood Peripheral Anaerobic Blood Culture - Preliminary NO GROWTH IN 3 DAYS Resulted 09/24/17 09:10 Abscess Arm Fungal Smear - Final NO FUNGAL ELEMENTS SEEN. Resulted 09/24/17 09:10 Abscess Arm Fungal Culture Pending Resulted Radiology Last Impressions Chest X-Ray 09/22/17 1326 Signed Impressions: CONCLUSION: Negative examination. Soft Tissue Ultrasound 09/22/17 0000 Signed Impressions: CONCLUSION: 1. Probable lymph node as above. Narrative Exam left axilla with VAC in place/intact, no cellulitis A/P Problem List: (1) Sepsis ICD Codes: A41.9 - Sepsis, unspecified organism Status: Acute (2) Cellulitis of axillary region ICD Codes: L03.119 - Cellulitis of unspecified part of limb Status: Acute (3) Hypothyroidism ICD Codes: E03.9 - Hypothyroidism, unspecified (4) Abscess of axilla, right ICD Codes: L02.411 - Cutaneous abscess of right axilla Assessment and Plan 56yo female with VAC in L Axillary abscess, stable. overall better will change VAC Wednesday Problem Qualifiers (1) Sepsis: Qualified Codes: A41.9 - Sepsis, unspecified organism Matthew Ashton MD Sep 25, 2017 20:24
[2017-09-25] MEDS ORDERED: POTASSIUM CHLORIDE 20 MEQ CONTROLLED RELEASE TAB PO ONE (22:00)
[2017-09-25 23:02] LABS: BACTERIA, URINE RARE /hpf; BILIRUBIN, URINE NEG (NEG); BLOOD, URINE NEG (NEG); GLUCOSE,URINE NEG (NEG); KETONE, URINE NEG (NEG); MUCUS URINE FEW /lpf (OCC); NITRITE,URINE NEG (NEG); SQUAMOUS EPITHELIAL CELL URINE 1 /hpf (0-5); URINE COLOR Straw (YELLW/STRAW); URINE LEUKOCYTE ESTERASE NEG (NEG)
[2017-09-26] VITALS (11 sets, daily range): BP systolic 132–172; BP diastolic 85–108; PULSE 62–88; RESP 16–20; TEMP 97.8–98.7; O2SAT 95–97
[2017-09-26] MEDS ORDERED: PHARMACY ORDERED LAB ONE (02:45)
[2017-09-26] MEDS: VANCOMYCIN 1,000 MG/NS 250 ML IV SCH ×2 (04:22)
[2017-09-26] MEDS: LEVOTHYROXINE SODIUM 88 MCG TAB PO SCH (05:10)
[2017-09-26] MEDS: KETOROLAC TROMETHAMINE 30 MG/ML (IVP) VIAL IV PUSH PRN ×2 (05:48→12:35)
[2017-09-26 07:38] LABS: CREATININE 0.5 MG/DL (0.50-1.00)
--- NOTE | 2017-09-26 08:30 | HHI.PR ---
Subjective Remarks awake and alert, no diarrhea, no BM but + flatus some pain - VAC site Objective Vitals Vital Signs Date Time Temp Pulse Resp B/P (MAP) Pulse Ox O2 Delivery O2 Flow Rate FiO2 09/26/17 07:26 Room Air 09/26/17 04:00 97.8 69 18 162/90 (114) 96 09/26/17 03:49 62 09/26/17 00:00 98.1 66 18 161/88 (112) 96 09/25/17 23:42 70 09/25/17 20:00 97.4 79 18 129/70 (89) 97 09/25/17 20:00 Room Air 09/25/17 19:39 73 09/25/17 16:00 98.3 69 18 181/95 (123) 95 09/25/17 16:00 68 09/25/17 12:00 97.9 72 18 121/69 (86) 96 09/25/17 12:00 90 I/O 09/25/17 09/25/17 09/25/17 09/26/17 09/26/17 09/26/17 07:00 15:00 23:00 07:00 15:00 23:00 Intake Total 480 ml 300 ml Output Total 1000 ml Balance -520 ml 300 ml Intake Oral 480 ml 300 ml Output Urine Total 1000 ml # Voids 3 # Bowel Movements 0 Result Diagram: 09/25/17 1112 09/26/17 0422 Imaging Last Impressions Chest X-Ray 09/22/17 1326 Signed Impressions: CONCLUSION: Negative examination. Soft Tissue Ultrasound 09/22/17 0000 Signed Impressions: CONCLUSION: 1. Probable lymph node as above. Objective Remarks awake and alert oriented x 3, no acute distress anicteric no nuchal rigidity lungs- no rales, no wheezes , no rhonchi regular rhythm abdomens- soft , nontender, good bowel sounds extremities- left axillary area- with VAC in place swelling and induration and erythema- improved LE- no edema Procedures 09/24 Sharp debridement irrigation incision drainage of left axillary abscess 3 x 5 cm with application of VAC dressing appliance A/P Problem List: (1) Sepsis ICD Code: A41.9 - Sepsis, unspecified organism Status: Acute (2) Cellulitis of axillary region ICD Code: L03.119 - Cellulitis of unspecified part of limb Status: Acute (3) Hypothyroidism ICD Code: E03.9 - Hypothyroidism, unspecified Assessment and Plan 56 years old female no signigicant PMH except for hypothyroidism Sepsis secondary to left axillary abscess S/P I and D with VAC placement 09/24- MRSA continue on IV antibiotics- vancomycin. ID ff - plan for VAC change- Wednesday- GS ff -Percocet prn for pain- d/w her- denies any allergy to narcotics- p hypothyroidism. - continue home synthroid Hypokalemia- replaced IV 09/25 - recheck today SCDs and Lovenox for DVT prophylaxis. Incentive spirometry hourly Encourage increase activity- PT consult- educate how to ambulate with a VAC Code Status Full code Problem Qualifiers (1) Sepsis: Qualified Codes: A41.9 - Sepsis, unspecified organism Lake Jasso MD Sep 26, 2017 08:30
[2017-09-26] MEDS: DOCUSATE SODIUM 50 MG/SENNA 8.6 MG TAB PO SCH ×2 (09:00→20:41)
[2017-09-26] MEDS: NICOTINE 14 MG/24 HR PATCH T-DERMAL SCH (09:14)
[2017-09-26] MEDS: REMOVE OLD PATCH T-DERMAL SCH (09:14)
[2017-09-26] MEDS: SODIUM CHLORIDE 0.9% FLUSH 10 ML FLUSH IV FLUSH SCH ×2 (09:15→20:41)
[2017-09-26 10:38] LABS: BICARBONATE 22.5 MEQ/L (21.0-32.0); CALCIUM 8.9 MG/DL (8.5-10.1); CREATININE 0.52 MG/DL (0.50-1.00)
[2017-09-26] MEDS: VANCOMYCIN INJ 850 MG in SODIUM CHLOR 0.9% 250 ML INJ 250 ML IV SCH ×2 (12:36→18:23)
--- NOTE | 2017-09-26 13:36 | HHI.PR ---
Subjective Subjective Notes VAC turned off. Patient did not know why. VAC dressing with obvious leak. VAC dressing reinforced with adhesive and returned to low continuous suction without evidence of leak. Patient indicates Toradol only lasts a couple of hours for pain control. Requests some sort of pain medication adjustment. Objective Vitals/I&O Vital Signs Date Time Temp Pulse Resp B/P (MAP) Pulse Ox O2 Delivery O2 Flow Rate FiO2 09/26/17 07:50 98.2 66 20 170/98 (122) 97 09/26/17 07:26 Room Air 09/24/17 09:45 3 Labs Laboratory Tests Test 09/25/17 22:00 09/26/17 04:22 09/26/17 09:45 Urine Color Straw Urine Turbidity CLEAR Urine pH 7.0 Urine Specific [place] 1.008 Urine Protein NEG Urine Glucose (UA) NEG Urine Ketones NEG Urine Occult Blood NEG Urine Nitrite NEG Urine Bilirubin NEG Urine Urobilinogen LESS THAN 2 Urine Leukocyte Esterase NEG Urine WBC 1 Urine Squamous Epithelial Cells 1 Urine Bacteria RARE Urine Mucus FEW Microscopic Urinalysis Comment CULT NOT INDICATED Potassium Level 4.0 3.8 Creatinine 0.50 0.52 Estimat Glomerular Filtration Rate 128 122 Vancomycin Level Trough 8.5 Blood Urea Nitrogen 4 Random Glucose 89 Calcium Level 8.9 Sodium Level 139 Chloride Level 106 Carbon Dioxide Level 22.5 Anion Gap 11 Date/Time Source Procedure Growth Status 09/22/17 14:10 Blood Peripheral Aerobic Blood Culture - Preliminary NO GROWTH IN 4 DAYS Resulted 09/22/17 14:10 Blood Peripheral Anaerobic Blood Culture - Preliminary NO GROWTH IN 4 DAYS Resulted 09/24/17 09:10 Abscess Arm Fungal Smear - Final NO FUNGAL ELEMENTS SEEN. Resulted 09/24/17 09:10 Abscess Arm Fungal Culture Pending Resulted Radiology Last Impressions Chest X-Ray 09/22/17 1326 Signed Impressions: CONCLUSION: Negative examination. Soft Tissue Ultrasound 09/22/17 0000 Signed Impressions: CONCLUSION: 1. Probable lymph node as above. Extremities: Other (Left axillary VAC dressing reinforced and VAC machine turned back on. VAC sponge appropriately responded to suction without leak. Minimal to no surrounding erythema or drainage.) A/P Problem List: (1) Sepsis ICD Codes: A41.9 - Sepsis, unspecified organism Status: Acute (2) Cellulitis of axillary region ICD Codes: L03.119 - Cellulitis of unspecified part of limb Status: Acute (3) Hypothyroidism ICD Codes: E03.9 - Hypothyroidism, unspecified (4) Abscess of axilla, right ICD Codes: L02.411 - Cutaneous abscess of right axilla Assessment and Plan Postop incision and drainage of left axillary abscess with placement of VAC. VAC dressing reinforced so there is no leak. VAC machine turned back to on. Will order Toradol orally alternating with oral extra strength Tylenol for pain control. Problem Qualifiers (1) Sepsis: Qualified Codes: A41.9 - Sepsis, unspecified organism Eddie Velasquez MD Sep 26, 2017 13:36
[2017-09-26] MEDS: ACETAMINOPHEN 500 MG CPLT PO SCH ×2 (14:00→20:00)
[2017-09-26] MEDS: KETOROLAC TROMETHAMINE 10 MG TAB PO SCH ×2 (18:23→23:38)
[2017-09-26] MEDS: oxyCODONE/ACETAMINOPHEN 5 MG/325 MG TAB PO PRN (20:42)
[2017-09-27] VITALS (9 sets, daily range): BP systolic 144–172; BP diastolic 88–95; PULSE 54–82; RESP 16–18; TEMP 97.2–98.3; O2SAT 96–98
[2017-09-27] MEDS: ACETAMINOPHEN 500 MG CPLT PO SCH (02:00)
[2017-09-27] MEDS ORDERED: PHARMACY ORDERED LAB ONE (02:45)
[2017-09-27] MEDS: VANCOMYCIN INJ 850 MG in SODIUM CHLOR 0.9% 250 ML INJ 250 ML IV SCH ×3 (03:50→21:00)
[2017-09-27] MEDS: oxyCODONE/ACETAMINOPHEN 5 MG/325 MG TAB PO PRN ×3 (04:00→21:00)
[2017-09-27] MEDS: LEVOTHYROXINE SODIUM 88 MCG TAB PO SCH (06:00)
[2017-09-27] MEDS: KETOROLAC TROMETHAMINE 10 MG TAB PO SCH (06:25)
--- NOTE | 2017-09-27 09:24 | HHI.PR ---
Subjective Remarks states pain controlled no fever or chills Objective Vitals Vital Signs Date Time Temp Pulse Resp B/P (MAP) Pulse Ox O2 Delivery O2 Flow Rate FiO2 09/27/17 04:00 97.2 61 18 164/95 (118) 96 09/27/17 02:34 54 09/27/17 00:00 97.5 60 18 172/92 (118) 98 09/26/17 23:40 69 09/26/17 20:00 98.2 70 16 132/85 (101) 97 09/26/17 19:43 71 09/26/17 16:00 66 09/26/17 15:00 98.7 71 20 171/104 (126) 96 09/26/17 12:00 88 09/26/17 11:50 98.2 76 20 172/108 (129) 95 I/O 09/26/17 09/26/17 09/26/17 09/27/17 09/27/17 09/27/17 07:00 15:00 23:00 07:00 15:00 23:00 Intake Total 480 ml Output Total 1500 ml Balance -1020 ml Intake Oral 480 ml Output Urine Total 1500 ml # Bowel Movements 0 Result Diagram: 09/25/17 1112 09/26/17 0945 Imaging Last Impressions Chest X-Ray 09/22/17 1326 Signed Impressions: CONCLUSION: Negative examination. Soft Tissue Ultrasound 09/22/17 0000 Signed Impressions: CONCLUSION: 1. Probable lymph node as above. Objective Remarks awake and alert oriented x 3, no acute distress anicteric no nuchal rigidity lungs- no rales, no wheezes , no rhonchi regular rhythm abdomens- soft , nontender, good bowel sounds extremities- left axillary area- with VAC in place swelling and erytehma- resolved LE- no edema Procedures 09/24 Sharp debridement irrigation incision drainage of left axillary abscess 3 x 5 cm with application of VAC dressing appliance A/P Problem List: (1) Sepsis ICD Code: A41.9 - Sepsis, unspecified organism Status: Acute (2) Cellulitis of axillary region ICD Code: L03.119 - Cellulitis of unspecified part of limb Status: Acute (3) Hypothyroidism ICD Code: E03.9 - Hypothyroidism, unspecified Assessment and Plan 56 years old female no signigicant PMH except for hypothyroidism Sepsis secondary to left axillary abscess S/P I and D with VAC placement 09/24- MRSA continue on IV antibiotics- vancomycin. ID ff - plan for VAC change- today - GS ff -Percocet prn for pain- - d/w her to ask for it - IV Morphine prn for wound VAC change hypothyroidism. - continue home synthroid Hypokalemia- corrected some elevated readings- no knwon history of hypertesnion - pain contributing factor- continue percocet prn for apin - will hold off on Toradol SCDs and Lovenox for DVT prophylaxis. Incentive spirometry hourly Encourage increase activity- PT consult- educate how to ambulate with a VAC Code Status Full code Problem Qualifiers (1) Sepsis: Qualified Codes: A41.9 - Sepsis, unspecified organism Lake Jasso MD Sep 27, 2017 09:24
[2017-09-27] MEDS: DOCUSATE SODIUM 50 MG/SENNA 8.6 MG TAB PO SCH ×2 (09:44→21:01)
[2017-09-27] MEDS: REMOVE OLD PATCH T-DERMAL SCH (09:46)
[2017-09-27] MEDS: NICOTINE 14 MG/24 HR PATCH T-DERMAL SCH (09:46)
[2017-09-27] MEDS: SODIUM CHLORIDE 0.9% FLUSH 10 ML FLUSH IV FLUSH SCH ×2 (09:47→21:00)
--- NOTE | 2017-09-27 15:39 | HHI.IDPN ---
Subjective Subjective Remarks doing OK pain improved no new c/o Antibiotics vancomycin Allergies: Coded Allergies: Sulfa (Sulfonamide Antibiotics) (Verified Allergy, Severe, SHOCK, 09/22/17) bee venom protein (honey bee) (Verified Allergy, Severe, SHOCK, 09/22/17) cortisone (Verified Allergy, Severe, Psychosis, 09/22/17) penicillin G (Verified Allergy, Severe, SHOCK, 09/22/17) procaine (Verified Allergy, Severe, SOB, 09/22/17) Uncoded Allergies: ALL NARCOTICS (Allergy, Severe, AGITATION, 01/03/15) . TOMATO SEEDS (Allergy, Severe, "CAN'T BREATH", 01/03/15) . eggplant seeds (Allergy, Mild, Hives, 02/11/16) Objective . Vital Signs Date Time Temp Pulse Resp B/P (MAP) Pulse Ox O2 Delivery O2 Flow Rate FiO2 09/27/17 12:03 97.9 75 16 147/95 (112) 96 09/27/17 08:03 97.9 58 16 168/91 (116) 96 09/27/17 07:45 59 09/27/17 04:00 97.2 61 18 164/95 (118) 96 09/27/17 02:34 54 09/27/17 00:00 97.5 60 18 172/92 (118) 98 09/26/17 23:40 69 09/26/17 20:00 98.2 70 16 132/85 (101) 97 09/26/17 19:43 71 09/26/17 16:00 66 . Laboratory Tests Test 09/26/17 04:22 09/26/17 09:45 Potassium Level 4.0 MEQ/L 3.8 MEQ/L Creatinine 0.50 MG/DL 0.52 MG/DL Estimat Glomerular Filtration Rate 128 ML/MIN 122 ML/MIN Blood Urea Nitrogen 4 MG/DL Random Glucose 89 MG/DL Calcium Level 8.9 MG/DL Sodium Level 139 MEQ/L Chloride Level 106 MEQ/L Carbon Dioxide Level 22.5 MEQ/L Anion Gap 11 MEQ/L Imaging Last Impressions Chest X-Ray 09/22/17 1326 Signed Impressions: CONCLUSION: Negative examination. Soft Tissue Ultrasound 09/22/17 0000 Signed Impressions: CONCLUSION: 1. Probable lymph node as above. Physical Exam CONSTITUTIONAL/GENERAL: This is an adequately nourished patient, in no apparent distress. TUBES/LINES/DRAINS: SKIN: No jaundice, diffuse rashes STATUS LOCALIS: L axilla with VAC in place resolution of surrounding indration and erythema CARDIOVASCULAR: Regular rate and rhythm without murmurs, gallops, or rubs. No JVD. Peripheral pulses symmetric. RESPIRATORY/CHEST: Symmetric, unlabored respirations. Clear to auscultation. Breath sounds equal bilaterally. No wheezes, rales, or rhonchi. GASTROINTESTINAL: Abdomen soft, non-tender, nondistended. No hepato-splenomegaly , or palpable masses. No guarding. Bowel sounds present. MUSCULOSKELETAL: Extremities without clubbing, cyanosis, or edema. No joint tenderness or effusion noted. No calf tenderness. No mottling or clubbing. NEUROLOGICAL: Awake and alert. Non focal PSYCHIATRIC: calm cooperative Assessment & Plan Remarks L axilla phlegmone, abscess, sp debridement, VAC placed switch to Zyvox once ready for d/c to complete abx Pt is homeless and use of doxycyline will be a high risk for severe photodermatitis a/w tetracyclines Other oral options are precluded either by allergies or by resistance dw case mngr Sylvie Childress MD Sep 27, 2017 15:39
[2017-09-27] MEDS ORDERED: ZYVO600T PO (15:41)
[2017-09-27] MEDS: MORPHINE SULFATE 4 MG/ML INJ IV PUSH PRN (16:04)
--- NOTE | 2017-09-27 16:30 | PD.WCN.NOT ---
Neg Pressure Wound Therapy Wound Location Wound Location: Left axillary Wound Description Length: 3.8cm Width: 2.5cm Depth: 2.2cm Wound bed appearance: 90% Beefy red granular tissue 10% moist adipose Periwound appearance: Unremarkable Settings Suction: 125 mmHg, Continuous Intensity: Low Other Information: Bridged, Windowpaned Foam type: Black Number of pieces: 1 Additonal Information patient was seen today by process description writer for wound vac management .Patient alert and oriented x4 resting in bed with wound vac off.Dressing removed from left axillary with 1 piece of black foam removed.Wound cleanse with normal saline pat dry.Skin prep applied to periwound and bridging area.Wound measured and documented periwound draped in window paned fashion and drape applied to bridging area.Single piece black GranuFoam applied to wound base and bridged to medial bicep area.Track pad applied and suction started @ 125mmHG low continuous suction with no leak noted .Dressing signed and dated.No further questions upon writers departure. Israel Faith [facility] Sep 27, 2017 16:30
--- NOTE | 2017-09-27 17:05 | HHI.PR ---
cc: Edu Mcintyre MD Subjective Subjective Notes DAILY PROGRESS NOTE FOR SURGICAL ATTENDING, DR. EDU MCINTYRE Resting in bed No issues Tolerated dressing change Objective Vitals/I&O Vital Signs Date Time Temp Pulse Resp B/P (MAP) Pulse Ox O2 Delivery O2 Flow Rate FiO2 09/27/17 15:41 80 09/27/17 12:03 97.9 16 147/95 (112) 96 09/27/17 08:00 Room Air 09/24/17 09:45 3 Labs Laboratory Tests Test 09/27/17 03:50 Vancomycin Level Trough 17.4 Date/Time Source Procedure Growth Status 09/22/17 14:10 Blood Peripheral Aerobic Blood Culture - Final NO GROWTH IN 5 DAYS Complete 09/22/17 14:10 Blood Peripheral Anaerobic Blood Culture - Final NO GROWTH IN 5 DAYS Complete 09/24/17 09:10 Abscess Arm Fungal Smear - Final NO FUNGAL ELEMENTS SEEN. Resulted 09/24/17 09:10 Abscess Arm Fungal Culture Pending Resulted Radiology Last Impressions Chest X-Ray 09/22/17 1326 Signed Impressions: CONCLUSION: Negative examination. Soft Tissue Ultrasound 09/22/17 0000 Signed Impressions: CONCLUSION: 1. Probable lymph node as above. Cardiovascular: Regular Lungs: Clear Abdomen: Non-distended, Non-tender Narrative Exam LEFT axillary --- Wound Vac replaced today; good seal A/P Problem List: (1) Sepsis ICD Codes: A41.9 - Sepsis, unspecified organism Status: Acute (2) Cellulitis of axillary region ICD Codes: L03.119 - Cellulitis of unspecified part of limb Status: Acute (3) Hypothyroidism ICD Codes: E03.9 - Hypothyroidism, unspecified Status: Chronic (4) Abscess of axilla, right ICD Codes: L02.411 - Cutaneous abscess of right axilla Status: Acute Assessment and Plan 56 year old female POD3 I&D LEFT axillary abscess -Wound Vac changed at bedside today -Will evaluate in a few days and if appropriate will transition to wet to dry dressings -Regular diet -Antibiotics per ID Attending Statement NOTE FOR SURGICAL ATTENDING, DR. EDU MCINTYRE I agree with above assessment and plan. The following services were provided during this hospital visit: Chart data review, vital sign assessments/reviewing monitor data Review of consultations notes if present. Medication orders/review and/or management Ordering and/or reviewing lab tests Ordering and/or interpreting/reviewing x-rays and/or diagnostic studies Care of the patient and discussion of the patient with the care team Documentation time To help prompt me to consider important information that might be impacting today's encounter and assessment, Information from prior notes written by myself or my colleagues may have been "brought forward/copy and pasted" into today's note. Problem Qualifiers (1) Sepsis: Qualified Codes: A41.9 - Sepsis, unspecified organism Sylvia Lamas/[facility] VASQUEZ Sep 27, 2017 17:05 Edu Mcintyre MD Sep 27, 2017 17:47
[2017-09-28] VITALS (7 sets, daily range): BP systolic 129–180; BP diastolic 75–100; PULSE 61–85; RESP 16–19; TEMP 97.6–99.1; O2SAT 96–98
[2017-09-28] MEDS: VANCOMYCIN INJ 850 MG in SODIUM CHLOR 0.9% 250 ML INJ 250 ML IV SCH ×3 (02:55→18:21)
[2017-09-28] MEDS: oxyCODONE/ACETAMINOPHEN 5 MG/325 MG TAB PO PRN ×4 (03:26→23:14)
[2017-09-28] MEDS: LEVOTHYROXINE SODIUM 88 MCG TAB PO SCH (05:58)
[2017-09-28] MEDS: DOCUSATE SODIUM 50 MG/SENNA 8.6 MG TAB PO SCH ×2 (09:00→21:35)
[2017-09-28] MEDS: REMOVE OLD PATCH T-DERMAL SCH (09:00)
[2017-09-28] MEDS: NICOTINE 14 MG/24 HR PATCH T-DERMAL SCH (10:27)
--- NOTE | 2017-09-28 12:12 | HHI.PR ---
Subjective Remarks Still Has VAC in place and left axillary region Continue current antibiotics Positive MRSA Blood pressure is not controlled will adjust A.m. labs Discussed with patient and RN and case management Objective Vitals Vital Signs Date Time Temp Pulse Resp B/P (MAP) Pulse Ox O2 Delivery O2 Flow Rate FiO2 09/28/17 08:02 97.9 74 16 180/100 (126) 97 09/28/17 04:00 97.6 61 17 129/75 (93) 97 09/28/17 04:00 69 09/28/17 00:00 97.8 75 19 134/78 (96) 97 09/28/17 00:00 70 09/28/17 00:00 Room Air 09/27/17 20:00 98.3 82 17 144/91 (108) 97 09/27/17 20:00 Room Air 09/27/17 20:00 82 09/27/17 16:03 98.0 68 16 148/88 (108) 96 09/27/17 15:41 80 I/O 09/27/17 09/27/17 09/27/17 09/28/17 09/28/17 09/28/17 07:00 15:00 23:00 07:00 15:00 23:00 Intake Total 480 ml 258.5 ml 638.5 ml 498.5 ml Output Total 1500 ml 950 ml Balance -1020 ml 258.5 ml 638.5 ml -451.5 ml Intake Oral 480 ml 380 ml 240 ml IV Total 258.5 ml 258.5 ml 258.5 ml Output Urine Total 1500 ml 950 ml # Voids 5 # Bowel Movements 0 1 2 Result Diagram: 09/25/17 1112 09/26/17 0945 Other Results Laboratory Tests Test 09/25/17 22:00 09/26/17 04:22 09/26/17 09:45 09/27/17 03:50 Urine Color Straw Urine Turbidity CLEAR Urine pH 7.0 Urine Specific [place] 1.008 Urine Protein NEG mg/dL Urine Glucose (UA) NEG mg/dL Urine Ketones NEG mg/dL Urine Occult Blood NEG Urine Nitrite NEG Urine Bilirubin NEG Urine Urobilinogen LESS THAN 2 mg/dL Urine Leukocyte Esterase NEG Urine WBC 1 /hpf Urine Squamous Epithelial Cells 1 /hpf Urine Bacteria RARE /hpf Urine Mucus FEW /lpf Microscopic Urinalysis Comment CULT NOT INDICATED Potassium Level 4.0 MEQ/L 3.8 MEQ/L Creatinine 0.50 MG/DL 0.52 MG/DL Estimat Glomerular Filtration Rate 128 ML/MIN 122 ML/MIN Vancomycin Level Trough 8.5 MCG/ML 17.4 MCG/ML Blood Urea Nitrogen 4 MG/DL Random Glucose 89 MG/DL Calcium Level 8.9 MG/DL Sodium Level 139 MEQ/L Chloride Level 106 MEQ/L Carbon Dioxide Level 22.5 MEQ/L Anion Gap 11 MEQ/L Imaging Last Impressions Chest X-Ray 09/22/17 1326 Signed Impressions: CONCLUSION: Negative examination. Soft Tissue Ultrasound 09/22/17 0000 Signed Impressions: CONCLUSION: 1. Probable lymph node as above. Objective Remarks GENERAL: Awake alert and oriented talkative and cooperative SKIN: Warm and dry. Left axillary region has VAC in place HEAD: Atraumatic. Normocephalic. EYES: Pupils equal and round. No scleral icterus. No injection or drainage. Extraocular muscles intact ENT: No nasal bleeding or discharge. Mucous membranes pink and moist. Tongue is midline NECK: Trachea midline. No JVD. Supple CARDIOVASCULAR: Regular rate and rhythm. S1-S2 no S3 or S4 RESPIRATORY: No accessory muscle use. Clear to auscultation. Breath sounds equal bilaterally. GASTROINTESTINAL: Abdomen soft, non-tender, nondistended. Hepatic and splenic margins not palpable. MUSCULOSKELETAL: Extremities without clubbing, cyanosis, or edema. No obvious deformities. NEUROLOGICAL: Awake and alert. No obvious cranial nerve deficits. Motor grossly within normal limits. 4 out of 5 muscle strength in the arms and legs. Normal speech. PSYCHIATRIC: Appropriate mood and affect; insight and judgment normal. Procedures 09/24 Sharp debridement irrigation incision drainage of left axillary abscess 3 x 5 cm with application of VAC dressing appliance Medications and IVs Current Medications Sodium Chloride 1,000 ml @ 999 mls/hr BOLUS ONCE IV Last administered on 09/22at 14:15; Start 09/22/17 at 13:30; Stop 09/22/17 at 14:30; Status DC Sodium Chloride 1,000 ml @ 999 mls/hr BOLUS ONCE IV Last administered on 09/22at 14:15; Start 09/22/17 at 13:30; Stop 09/22/17 at 14:30; Status DC Aztreonam 2000 mg/ Sodium Chloride 100 ml @ 200 mls/hr ONCE STAT IV Last administered on 09/22/17 18:15; Start 09/22/17 at 15:05; Stop 09/22/17 at 15:34 ; Status DC Metronidazole 100 ml @ 100 mls/hr ONCE STAT IV Last administered on at 15:36; Start 09/22/17 at 15:05; Stop 09/22/17 at 16:04; Status DC Vancomycin HCl 1000 mg/Sodium Chloride 250 ml @ 250 mls/hr ONCE STAT IV Last administered on 09/22/17 17:03; Start 09/22/17 at 15:05; Stop 09/22/17 at 16:04 ; Status DC Sodium Chloride 1,000 ml @ 70 mls/hr [id number] IV Last administered on at 11:47; Start 09/22/17 at 20:00; Stop 09/25/17 at 13:43; Status DC Sodium Chloride (NS Flush) 2 ml UNSCH PRN IV FLUSH FLUSH AFTER USING IV ACCESS ; Start 09/22/17 at 19:00 Sodium Chloride (NS Flush) 2 ml BID IV FLUSH Last administered on 09/27/17at 21: 00; Start 09/22/17 at 21:00 Acetaminophen (Tylenol) 650 mg Q4H PRN PO TEMP > 100.4 Last administered on at 16:39; Start 09/22/17 at 19:00 Enoxaparin Sodium (Lovenox Inj) 40 mg Q24H SQ Last administered on 09/22/17at 19 :51; Start 09/22/17 at 20:00; Status Future Hold Naloxone HCl (Narcan Inj) 0.4 mg UNSCH PRN IV PUSH SEE LABEL COMMENTS; Start at 19:00 Senna/Docusate Sodium (Nisha-Colace) 1 tab BID PO Last administered on 21:01; Start 09/22/17 at 21:00 Magnesium Hydroxide (Milk Of Magnesia Liq) 30 ml Q12H PRN PO Mild constipation ; Start 09/22/17 at 19:00; Status UNV Sennosides (Senokot) 17.2 mg Q12H PRN PO Moderate constipation Last administered on 09/23/17at 16:39; Start 09/22/17 at 19:00 Bisacodyl (Dulcolax Supp) 10 mg DAILY PRN RECTAL SEVERE CONSITIPATION; Start at 19:00 Lactulose (Lactulose Liq) 30 ml DAILY PRN PO SEVERE CONSITIPATION; Start at 19:00 Vancomycin HCl 1000 mg/Sodium Chloride 250 ml @ 250 mls/hr Q12H IV ; Start at 19:00; Status UNV Levofloxacin/ Dextrose 150 ml @ 100 mls/hr Q24H IV Last administered on at 19:52; Start 09/22/17 at 20:00; Stop 09/25/17 at 08:19; Status DC Pharmacy Profile Note 0 ml @ 0 mls/hr UNSCH OTHER ; Start 09/22/17 at 19:15; Stop 09/25/17 at 14:13; Status DC Ketorolac Tromethamine (Toradol Inj) 15 mg Q6H PRN IV PUSH PAIN SCALE 1 TO 10 Last administered on 09/26/17at 12:35; Start 09/22/17 at 19:15; Stop 09/26/17 at 13:40; Status DC Vancomycin HCl 800 mg/Sodium Chloride 258 ml @ 250 mls/hr Q12H IV Last administered on 09/24/17at 05:15; Start 09/23/17 at 05:00; Stop 09/24/17 at 09:17 ; Status DC Sennosides (Senokot) 8.6 mg Q12HR PRN PO MILD CONSTIPATION; Start 09/22/17 at 20:45 Miscellaneous Information ([facility] Ordered Lab Info) SPECIFIC LAB TO BE ... ONCE ONCE .XX Last administered on 09/24/17at 04:50; Start 09/24/17 at 04:45; Stop 09/24/17 at 04:46; Status DC Levothyroxine Sodium (Synthroid) 88 mcg DAILY@0600 PO Last administered on 09/28at 05:58; Start 09/23/17 at 09:00 Nicotine (Habitrol 14 Mg Patch.24 Hr) 1 patch ONCE ONCE T-DERMAL Last administered on 09/23/17at 19:23; Start 09/23/17 at 18:30; Stop 09/23/17 at 19:12 ; Status DC Nicotine (Habitrol 14 Mg Patch.24 Hr) 1 patch DAILY T-DERMAL Last administered on 09/28/17at 10:27; Start 09/24/17 at 09:00 Miscellaneous Information 1 DAILY T-DERMAL Last administered on 09/27/17at 09:46 ; Start 09/24/17 at 09:00 Lactated Ringer's 1,000 ml @ 30 mls/hr Q24H PRN IV SEE LABEL COMMENTS; Start at 04:00; Stop 09/27/17 at 03:59; Status DC Sodium Chloride 500 ml @ 30 mls/hr [id number] PRN IV SEE LABEL COMMENTS; Start at 04:00; Stop 09/27/17 at 03:59; Status DC Povidone Iodine (Betadine 5% Antisepsis Kit) 1 applic CLINICAL APPEALS SPECIALIST PRN EACH NARE SEE LABEL COMMENTS; Start 09/24/17 at 04:00; Stop 09/27/17 at 03:59; Status DC Chlorhexidine Gluconate (Chlorhexidine 2% Cloth) 3 pack CLINICAL APPEALS SPECIALIST PRN TOPICAL SEE LABEL COMMENTS; Start 09/24/17 at 04:00; Stop 09/27/17 at 03:59; Status DC Acetaminophen 100 ml @ As Directed STK-MED ONCE IV ; Start 09/24/17 at 08:03; Stop 09/24/17 at 08:04; Status DC Bupivacaine HCl/ Epinephrine Bitart (Sensorcaine-Epinephrine Pf 0.5% Inj) 30 ml STK-MED ONCE .ROUTE Last administered on 09/24/17at 09:12; Start 09/24/17 at 09: 06; Stop 09/24/17 at 09:07; Status DC Miscellaneous Information ([facility] Ordered Lab Info) SPECIFIC LAB TO BE ... ONCE ONCE .XX ; Start 09/26/17 at 02:45; Stop 09/26/17 at 02:46; Status DC Vancomycin HCl 1000 mg/Sodium Chloride 250 ml @ 250 mls/hr Q12H IV Last administered on 09/26/17at 04:22; Start 09/24/17 at 15:00; Stop 09/26/17 at 09:07 ; Status DC Fentanyl Citrate (fentaNYL INJ) 200 mcg STK-MED ONCE .ROUTE ; Start 09/24/17 at 09:46; Stop 09/24/17 at 09:47; Status DC Midazolam HCl (Versed Inj) 2 mg STK-MED ONCE .ROUTE ; Start 09/24/17 at 09:46; Stop 09/24/17 at 09:47; Status DC Miscellaneous Information ([facility]) ALL NURSING DEPARTME... UNSCH PRN .XX SEE LABEL COMMENTS; Start 09/24/17 at 10:30; Stop 09/25/17 at 10: 29; Status DC Pharmacy Profile Note 0 ml @ 0 mls/hr UNSCH OTHER ; Start 09/25/17 at 13:45 Potassium Chloride 100 ml @ 100 mls/hr Q1H IV Last administered on 09/25/17at 17:08; Start 09/25/17 at 13:45; Stop 09/25/17 at 16:44; Status DC Oxycodone/ Acetaminophen (Percocet 5-325 Mg) 1 tab Q6H PRN PO PAIN SCALE 6 TO 10 Last administered on 09/28/17at 10:28; Start 09/25/17 at 14:00 Ondansetron HCl (Zofran Odt) 4 mg Q6H PRN PO NAUSEA; Start 09/25/17 at 14:00 Potassium Chloride (KCl) 20 meq ONCE ONCE PO Last administered on 09/25/17at 21 :44; Start 09/25/17 at 22:00; Stop 09/25/17 at 22:01; Status DC Vancomycin HCl 850 mg/Sodium Chloride 258.5 ml @ 250 mls/hr Q8H IV Last administered on 09/28/17at 10:26; Start 09/26/17 at 11:00 Miscellaneous Information ([facility] Ordered Lab Info) SPECIFIC LAB TO BE FARHAN... ONCE ONCE .XX ; Start 09/27/17 at 02:45; Stop 09/27/17 at 02:46; Status DC Ketorolac Tromethamine (Toradol) 10 mg Q6HR PO Last administered on 09/27/17at 06:25; Start 09/26/17 at 18:00; Stop 09/27/17 at 09:27; Status DC Acetaminophen (Tylenol) 1,000 mg Q6H PO Last administered on 09/27/17at 02:00; Start 09/26/17 at 14:00; Stop 09/27/17 at 09:27; Status DC Morphine Sulfate (Morphine Inj) 2 mg CLINICAL APPEALS SPECIALIST PRN IV PUSH for wound VAC change only Last administered on 09/27/17at 16:04; Start 09/27/17 at 16:00 A/P Problem List: (1) Sepsis ICD Code: A41.9 - Sepsis, unspecified organism Status: Acute (2) Cellulitis of axillary region ICD Code: L03.119 - Cellulitis of unspecified part of limb Status: Acute (3) Hypothyroidism ICD Code: E03.9 - Hypothyroidism, unspecified Status: Chronic Assessment and Plan 56 years old female no signigicant PMH except for hypothyroidism Sepsis secondary to left axillary abscess S/P I and D with VAC placement 09/24- MRSA continue on IV antibiotics- vancomycin. ID ff - plan for VAC change- today - GS ff -Percocet prn for pain- - d/w her to ask for it - IV Morphine prn for wound VAC change hypothyroidism. - continue home Synthroid Hypokalemia- corrected some elevated readings- no known history of hypertension - pain contributing factor- continue Percocet prn for PAIN - will hold off on Toradol SCDs and Lovenox for DVT prophylaxis. Incentive spirometry hourly Encourage increase activity- PT consult- educate how to ambulate with a VAC Discharge Planning Pending clearance by ID and surgery Problem Qualifiers (1) Sepsis: Qualified Codes: A41.9 - Sepsis, unspecified organism Carlito Otero DO Sep 28, 2017 12:12
[2017-09-28] MEDS ORDERED: cloNIDine HCL 0.1 MG TAB PO PRN (12:15)
[2017-09-28] MEDS ORDERED: amLODIPine BESYLATE 5 MG TAB PO ONE (12:15)
[2017-09-28] MEDS: SODIUM CHLORIDE 0.9% FLUSH 10 ML FLUSH IV FLUSH SCH ×2 (14:41→21:35)
[2017-09-29] VITALS: BP 113/59; PULSE 75; PULSE 80; RESP 19; TEMP 97.7; O2SAT 97
[2017-09-29] MEDS: VANCOMYCIN INJ 850 MG in SODIUM CHLOR 0.9% 250 ML INJ 250 ML IV SCH ×3 (02:40→18:08)
[2017-09-29 04:00] VITALS: BP 133/82; PULSE 79; PULSE 88; RESP 18; TEMP 98; O2SAT 97
[2017-09-29] MEDS: oxyCODONE/ACETAMINOPHEN 5 MG/325 MG TAB PO PRN ×2 (05:15→10:10)
[2017-09-29] MEDS: LEVOTHYROXINE SODIUM 88 MCG TAB PO SCH (05:15)
[2017-09-29 08:00] VITALS: BP 133/88; PULSE 74; PULSE 80; RESP 20; TEMP 97.9; O2SAT 95
[2017-09-29 08:21] LABS: AUTOMATED NEUTROPHIL # 3.6 TH/MM3 (1.8-7.7); BASOPHIL # 0.1 TH/MM3 (0-0.2); BASOPHIL % 1.4 % (0.0-2.0); EOSINOPHIL # 0.3 TH/MM3 (0-0.4); EOSINOPHIL % 4.9 % (0.0-4.0); HEMATOCRIT 41.6 % (35.0-46.0); LYMPH % 19.8 % (9.0-44.0); LYMPHOCYTE # 1.1 TH/MM3 (1.0-4.8); MEAN CELL VOLUME 90.6 FL (80.0-100.0); MEAN CORPUSCULAR HEMOGLOBIN 30.5 PG (27.0-34.0); MEAN CORPUSCULAR HGB CONC 33.7 % (32.0-36.0); MEAN PLATELET VOLUME 8.3 FL (7.0-11.0); MONO % 8.3 % (0.0-8.0); MONOCYTE # 0.5 TH/MM3 (0-0.9); NEUT % 65.6 % (16.0-70.0); PLATELET COUNT 266 TH/MM3 (150-450); RED CELL DISTRIBUTION WIDTH 14.5 % (11.6-17.2); WHITE BLOOD COUNT 5.5 TH/MM3 (4.0-11.0)
[2017-09-29 08:46] LABS: ALBUMIN 2.5 GM/DL (3.4-5.0); AST (GOT) 13 U/L (15-37); BICARBONATE 28.2 MEQ/L (21.0-32.0); BLOOD UREA NITROGEN 8 MG/DL (7-18); CALCIUM 8.4 MG/DL (8.5-10.1); CHLORIDE 104 MEQ/L (98-107); CREATININE 0.58 MG/DL (0.50-1.00); GLOMERULAR FILTRATION RATE 108 ML/MIN (>89); GLUCOSE,RANDOM 86 MG/DL (74-106); MAGNESIUM 2.1 MG/DL (1.5-2.5); SODIUM (NA) 141 MEQ/L (136-145)
[2017-09-29 08:56] LABS: ALKALINE PHOSPHATASE 83 U/L (45-117); ALT (GPT) 16 U/L (10-53); FREE T4 1.38 NG/DL (0.76-1.46); PHOSPHORUS 3.3 MG/DL (2.5-4.9); TOTAL BILIRUBIN ADULT 0.2 MG/DL (0.2-1.0); TOTAL PROTEIN 6.3 GM/DL (6.4-8.2)
[2017-09-29] MEDS: NICOTINE 14 MG/24 HR PATCH T-DERMAL SCH (09:00)
[2017-09-29] MEDS: amLODIPine BESYLATE 5 MG TAB PO SCH (10:09)
[2017-09-29] MEDS: DOCUSATE SODIUM 50 MG/SENNA 8.6 MG TAB PO SCH ×2 (10:09→20:48)
[2017-09-29] MEDS: SODIUM CHLORIDE 0.9% FLUSH 10 ML FLUSH IV FLUSH SCH ×2 (10:17→20:48)
--- NOTE | 2017-09-29 10:34 | HHI.PR ---
cc: Edu Mcintyre MD Subjective Subjective Notes DAILY PROGRESS NOTE FOR SURGICAL ATTENDING, DR. EDU MCINTYRE Received bad news this morning--- tent including all belongings were confiscated sometime yesterday Wound Vac holding up good Objective Vitals/I&O Vital Signs Date Time Temp Pulse Resp B/P (MAP) Pulse Ox O2 Delivery O2 Flow Rate FiO2 09/29/17 04:00 98.0 88 18 133/82 (99) 97 09/29/17 04:00 Room Air 09/28/17 08:00 3.00 Labs Laboratory Tests Test 09/29/17 07:55 White Blood Count 5.5 Red Blood Count 4.60 Hemoglobin 14.0 Hematocrit 41.6 Mean Corpuscular Volume 90.6 Mean Corpuscular Hemoglobin 30.5 Mean Corpuscular Hemoglobin Concent 33.7 Red Cell Distribution Width 14.5 Platelet Count 266 Mean Platelet Volume 8.3 Neutrophils (%) (Auto) 65.6 Lymphocytes (%) (Auto) 19.8 Monocytes (%) (Auto) 8.3 Eosinophils (%) (Auto) 4.9 Basophils (%) (Auto) 1.4 Neutrophils # (Auto) 3.6 Lymphocytes # (Auto) 1.1 Monocytes # (Auto) 0.5 Eosinophils # (Auto) 0.3 Basophils # (Auto) 0.1 CBC Comment DIFF FINAL Differential Comment Blood Urea Nitrogen 8 Creatinine 0.58 Random Glucose 86 Total Protein 6.3 Albumin 2.5 Calcium Level 8.4 Phosphorus Level 3.3 Magnesium Level 2.1 Alkaline Phosphatase 83 Aspartate Amino Transf (AST/SGOT) 13 Alanine Aminotransferase (ALT/SGPT) 16 Total Bilirubin 0.2 Sodium Level 141 Potassium Level 3.6 Chloride Level 104 Carbon Dioxide Level 28.2 Anion Gap 9 Estimat Glomerular Filtration Rate 108 Free Thyroxine 1.38 Thyroid Stimulating Hormone 3rd Gen 5.710 Date/Time Source Procedure Growth Status 09/22/17 14:10 Blood Peripheral Aerobic Blood Culture - Final NO GROWTH IN 5 DAYS Complete 09/22/17 14:10 Blood Peripheral Anaerobic Blood Culture - Final NO GROWTH IN 5 DAYS Complete 09/24/17 09:10 Abscess Arm Fungal Smear - Final NO FUNGAL ELEMENTS SEEN. Resulted 09/24/17 09:10 Abscess Arm Fungal Culture Pending Resulted Radiology Last Impressions Chest X-Ray 09/22/17 1326 Signed Impressions: CONCLUSION: Negative examination. Soft Tissue Ultrasound 09/22/17 0000 Signed Impressions: CONCLUSION: 1. Probable lymph node as above. Cardiovascular: Regular Lungs: Clear Abdomen: Non-distended, Non-tender Narrative Exam LEFT axillary --- Wound Vac with good seal A/P Problem List: (1) Abscess of axilla, right ICD Codes: L02.411 - Cutaneous abscess of right axilla Status: Acute (2) Cellulitis of axillary region ICD Codes: L03.119 - Cellulitis of unspecified part of limb Status: Acute (3) Sepsis ICD Codes: A41.9 - Sepsis, unspecified organism Status: Acute (4) Hypothyroidism ICD Codes: E03.9 - Hypothyroidism, unspecified Status: Chronic Assessment and Plan 56 year old female POD5 I&D LEFT axillary abscess -Will keep Wound Vac on for today and plan to change/remove tomorrow -May be able to transition to wet to dry dressings tomorrow -Regular diet -Antibiotics per ID -Consult CM Attending Statement NOTE FOR SURGICAL ATTENDING, DR. EDU MCINTYRE I agree with above assessment and plan. The exam, history, and the medical decision-making described in the above note were completed with the assistance of the mid-level provider. I reviewed and agree with the findings presented. The following services were provided during this hospital visit: Chart data review, vital sign assessments/reviewing monitor data Review of consultations notes if present. Medication orders/review and/or management Ordering and/or reviewing lab tests Ordering and/or interpreting/reviewing x-rays and/or diagnostic studies Care of the patient and discussion of the patient with the care team Documentation time To help prompt me to consider important information that might be impacting today's encounter and assessment, Information from prior notes written by myself or my colleagues may have been "brought forward/copy and pasted" into today's note. Problem Qualifiers (1) Sepsis: Qualified Codes: A41.9 - Sepsis, unspecified organism Sylvia Lamas/[employer] PEDRO Sep 29, 2017 10:34 Edu Mcintyre MD Sep 30, 2017 16:15
--- NOTE | 2017-09-29 11:06 | HHI.PR ---
Subjective Remarks 6-19 Still Has VAC in place and left axillary region Continue current antibiotics Positive MRSA Blood pressure is not controlled will adjust A.m. labs Discussed with patient and RN and case management 6-20 still has wound VAC IN PLACE IN LEFT AXILLARY REGION DW RN AND PT POSITIVE MRSA MONITOR BLOOD PRESSURES DW RN AND PT AND CM Objective Vitals Vital Signs Date Time Temp Pulse Resp B/P (MAP) Pulse Ox O2 Delivery O2 Flow Rate FiO2 09/29/17 08:00 96 Room Air 09/29/17 08:00 74 09/29/17 04:00 98.0 88 18 133/82 (99) 97 09/29/17 04:00 Room Air 09/29/17 04:00 79 09/29/17 00:00 80 09/29/17 00:00 Room Air 09/29/17 00:00 97.7 75 19 113/59 (77) 97 09/28/17 20:00 98.4 82 18 146/88 (107) 98 09/28/17 20:00 85 09/28/17 20:00 Room Air 09/28/17 16:03 98.9 70 16 164/84 (110) 96 09/28/17 12:03 99.1 69 16 166/87 (113) 96 I/O 09/28/17 09/28/17 09/28/17 09/29/17 09/29/17 09/29/17 07:00 15:00 23:00 07:00 15:00 23:00 Intake Total 498.5 ml 678.5 ml 758.5 ml Output Total 950 ml Balance -451.5 ml 678.5 ml 758.5 ml Intake Oral 240 ml 420 ml 500 ml IV Total 258.5 ml 258.5 ml 258.5 ml Output Urine Total 950 ml # Voids 4 2 # Bowel Movements 2 0 1 Result Diagram: 09/29/17 0755 09/29/17 0755 Other Results Laboratory Tests Test 09/29/17 07:55 White Blood Count 5.5 TH/MM3 Red Blood Count 4.60 MIL/MM3 Hemoglobin 14.0 GM/DL Hematocrit 41.6 % Mean Corpuscular Volume 90.6 FL Mean Corpuscular Hemoglobin 30.5 PG Mean Corpuscular Hemoglobin Concent 33.7 % Red Cell Distribution Width 14.5 % Platelet Count 266 TH/MM3 Mean Platelet Volume 8.3 FL Neutrophils (%) (Auto) 65.6 % Lymphocytes (%) (Auto) 19.8 % Monocytes (%) (Auto) 8.3 % Eosinophils (%) (Auto) 4.9 % Basophils (%) (Auto) 1.4 % Neutrophils # (Auto) 3.6 TH/MM3 Lymphocytes # (Auto) 1.1 TH/MM3 Monocytes # (Auto) 0.5 TH/MM3 Eosinophils # (Auto) 0.3 TH/MM3 Basophils # (Auto) 0.1 TH/MM3 CBC Comment DIFF FINAL Differential Comment Blood Urea Nitrogen 8 MG/DL Creatinine 0.58 MG/DL Random Glucose 86 MG/DL Total Protein 6.3 GM/DL Albumin 2.5 GM/DL Calcium Level 8.4 MG/DL Phosphorus Level 3.3 MG/DL Magnesium Level 2.1 MG/DL Alkaline Phosphatase 83 U/L Aspartate Amino Transf (AST/SGOT) 13 U/L Alanine Aminotransferase (ALT/SGPT) 16 U/L Total Bilirubin 0.2 MG/DL Sodium Level 141 MEQ/L Potassium Level 3.6 MEQ/L Chloride Level 104 MEQ/L Carbon Dioxide Level 28.2 MEQ/L Anion Gap 9 MEQ/L Estimat Glomerular Filtration Rate 108 ML/MIN Free Thyroxine 1.38 NG/DL Thyroid Stimulating Hormone 3rd Gen 5.710 uIU/ML Imaging Last Impressions Chest X-Ray 09/22/17 1326 Signed Impressions: CONCLUSION: Negative examination. Soft Tissue Ultrasound 09/22/17 0000 Signed Impressions: CONCLUSION: 1. Probable lymph node as above. Objective Remarks GENERAL: Awake alert and oriented talkative and cooperative SKIN: Warm and dry. Left axillary region has VAC in place HEAD: Atraumatic. Normocephalic. EYES: Pupils equal and round. No scleral icterus. No injection or drainage. Extraocular muscles intact ENT: No nasal bleeding or discharge. Mucous membranes pink and moist. Tongue is midline NECK: Trachea midline. No JVD. Supple CARDIOVASCULAR: Regular rate and rhythm. S1-S2 no S3 or S4 RESPIRATORY: No accessory muscle use. Clear to auscultation. Breath sounds equal bilaterally. GASTROINTESTINAL: Abdomen soft, non-tender, nondistended. Hepatic and splenic margins not palpable. MUSCULOSKELETAL: Extremities without clubbing, cyanosis, or edema. No obvious deformities. NEUROLOGICAL: Awake and alert. No obvious cranial nerve deficits. Motor grossly within normal limits. 4 out of 5 muscle strength in the arms and legs. Normal speech. PSYCHIATRIC: Appropriate mood and affect; insight and judgment normal. Procedures 09/24 Sharp debridement irrigation incision drainage of left axillary abscess 3 x 5 cm with application of VAC dressing appliance Medications and IVs Current Medications Sodium Chloride 1,000 ml @ 999 mls/hr BOLUS ONCE IV Last administered on 09/22 14:15; Start 09/22/17 at 13:30; Stop 09/22/17 at 14:30; Status DC Sodium Chloride 1,000 ml @ 999 mls/hr BOLUS ONCE IV Last administered on 09/22at 14:15; Start 09/22/17 at 13:30; Stop 09/22/17 at 14:30; Status DC Aztreonam 2000 mg/ Sodium Chloride 100 ml @ 200 mls/hr ONCE STAT IV Last administered on 09/22/17at 18:15; Start 09/22/17 at 15:05; Stop 09/22/17 at 15:34 ; Status DC Metronidazole 100 ml @ 100 mls/hr ONCE STAT IV Last administered on at 15:36; Start 09/22/17 at 15:05; Stop 09/22/17 at 16:04; Status DC Vancomycin HCl 1000 mg/Sodium Chloride 250 ml @ 250 mls/hr ONCE STAT IV Last administered on 09/22/17 17:03; Start 09/22/17 at 15:05; Stop 09/22/17 at 16:04 ; Status DC Sodium Chloride 1,000 ml @ 70 mls/hr [id number] IV Last administered on at 11:47; Start 09/22/17 at 20:00; Stop 09/25/17 at 13:43; Status DC Sodium Chloride (NS Flush) 2 ml UNSCH PRN IV FLUSH FLUSH AFTER USING IV ACCESS ; Start 09/22/17 at 19:00 Sodium Chloride (NS Flush) 2 ml BID IV FLUSH Last administered on 09/29/17at 10: 17; Start 09/22/17 at 21:00 Acetaminophen (Tylenol) 650 mg Q4H PRN PO TEMP > 100.4 Last administered on at 16:39; Start 09/22/17 at 19:00 Enoxaparin Sodium (Lovenox Inj) 40 mg Q24H SQ Last administered on 09/22/17at 19 :51; Start 09/22/17 at 20:00; Status Future Hold Naloxone HCl (Narcan Inj) 0.4 mg UNSCH PRN IV PUSH SEE LABEL COMMENTS; Start at 19:00 Senna/Docusate Sodium (Nisha-Colace) 1 tab BID PO Last administered on at 10:09; Start 09/22/17 at 21:00 Magnesium Hydroxide (Milk Of Magnesia Liq) 30 ml Q12H PRN PO Mild constipation ; Start 09/22/17 at 19:00; Status UNV Sennosides (Senokot) 17.2 mg Q12H PRN PO Moderate constipation Last administered on 09/23/17at 16:39; Start 09/22/17 at 19:00 Bisacodyl (Dulcolax Supp) 10 mg DAILY PRN RECTAL SEVERE CONSITIPATION; Start at 19:00 Lactulose (Lactulose Liq) 30 ml DAILY PRN PO SEVERE CONSITIPATION; Start at 19:00 Vancomycin HCl 1000 mg/Sodium Chloride 250 ml @ 250 mls/hr Q12H IV ; Start at 19:00; Status UNV Levofloxacin/ Dextrose 150 ml @ 100 mls/hr Q24H IV Last administered on at 19:52; Start 09/22/17 at 20:00; Stop 09/25/17 at 08:19; Status DC Pharmacy Profile Note 0 ml @ 0 mls/hr UNSCH OTHER ; Start 09/22/17 at 19:15; Stop 09/25/17 at 14:13; Status DC Ketorolac Tromethamine (Toradol Inj) 15 mg Q6H PRN IV PUSH PAIN SCALE 1 TO 10 Last administered on 09/26/17at 12:35; Start 09/22/17 at 19:15; Stop 09/26/17 at 13:40; Status DC Vancomycin HCl 800 mg/Sodium Chloride 258 ml @ 250 mls/hr Q12H IV Last administered on 09/24/17at 05:15; Start 09/23/17 at 05:00; Stop 09/24/17 at 09:17 ; Status DC Sennosides (Senokot) 8.6 mg Q12HR PRN PO MILD CONSTIPATION; Start 09/22/17 at 20:45 Miscellaneous Information ([facility] Ordered Lab Info) SPECIFIC LAB TO BE ... ONCE ONCE .XX Last administered on 09/24/17at 04:50; Start 09/24/17 at 04:45; Stop 09/24/17 at 04:46; Status DC Levothyroxine Sodium (Synthroid) 88 mcg DAILY@0600 PO Last administered on 09/29at 05:15; Start 09/23/17 at 09:00 Nicotine (Habitrol 14 Mg Patch.24 Hr) 1 patch ONCE ONCE T-DERMAL Last administered on 09/23/17at 19:23; Start 09/23/17 at 18:30; Stop 09/23/17 at 19:12 ; Status DC Nicotine (Habitrol 14 Mg Patch.24 Hr) 1 patch DAILY T-DERMAL Last administered on 09/29/17at 09:00; Start 09/24/17 at 09:00 Miscellaneous Information 1 DAILY T-DERMAL Last administered on 09/27/17at 09:46 ; Start 09/24/17 at 09:00 Lactated Ringer's 1,000 ml @ 30 mls/hr Q24H PRN IV SEE LABEL COMMENTS; Start at 04:00; Stop 09/27/17 at 03:59; Status DC Sodium Chloride 500 ml @ 30 mls/hr [id number] PRN IV SEE LABEL COMMENTS; Start at 04:00; Stop 09/27/17 at 03:59; Status DC Povidone Iodine (Betadine 5% Antisepsis Kit) 1 applic BUCCARO PRN EACH NARE SEE LABEL COMMENTS; Start 09/24/17 at 04:00; Stop 09/27/17 at 03:59; Status DC Chlorhexidine Gluconate (Chlorhexidine 2% Cloth) 3 pack BUCCARO PRN TOPICAL SEE LABEL COMMENTS; Start 09/24/17 at 04:00; Stop 09/27/17 at 03:59; Status DC Acetaminophen 100 ml @ As Directed STK-MED ONCE IV ; Start 09/24/17 at 08:03; Stop 09/24/17 at 08:04; Status DC Bupivacaine HCl/ Epinephrine Bitart (Sensorcaine-Epinephrine Pf 0.5% Inj) 30 ml STK-MED ONCE .ROUTE Last administered on 09/24/17at 09:12; Start 09/24/17 at 09: 06; Stop 09/24/17 at 09:07; Status DC Miscellaneous Information ([facility] Ordered Lab Info) SPECIFIC LAB TO BE FARHAN... ONCE ONCE .XX ; Start 09/26/17 at 02:45; Stop 09/26/17 at 02:46; Status DC Vancomycin HCl 1000 mg/Sodium Chloride 250 ml @ 250 mls/hr Q12H IV Last administered on 09/26/17at 04:22; Start 09/24/17 at 15:00; Stop 09/26/17 at 09:07 ; Status DC Fentanyl Citrate (fentaNYL INJ) 200 mcg STK-MED ONCE .ROUTE ; Start 09/24/17 at 09:46; Stop 09/24/17 at 09:47; Status DC Midazolam HCl (Versed Inj) 2 mg STK-MED ONCE .ROUTE ; Start 09/24/17 at 09:46; Stop 09/24/17 at 09:47; Status DC Miscellaneous Information ([facility] Nursing Information) ALL NURSING DEPARTME... UNSCH PRN .XX SEE LABEL COMMENTS; Start 09/24/17 at 10:30; Stop 09/25/17 at 10: 29; Status DC Pharmacy Profile Note 0 ml @ 0 mls/hr UNSCH OTHER ; Start 09/25/17 at 13:45 Potassium Chloride 100 ml @ 100 mls/hr Q1H IV Last administered on 09/25/17at 17:08; Start 09/25/17 at 13:45; Stop 09/25/17 at 16:44; Status DC Oxycodone/ Acetaminophen (Percocet 5-325 Mg) 1 tab Q6H PRN PO PAIN SCALE 6 TO 10 Last administered on 09/29/17at 10:10; Start 09/25/17 at 14:00 Ondansetron HCl (Zofran Odt) 4 mg Q6H PRN PO NAUSEA; Start 09/25/17 at 14:00 Potassium Chloride (KCl) 20 meq ONCE ONCE PO Last administered on 09/25/17at 21 :44; Start 09/25/17 at 22:00; Stop 09/25/17 at 22:01; Status DC Vancomycin HCl 850 mg/Sodium Chloride 258.5 ml @ 250 mls/hr Q8H IV Last administered on 09/29/17at 10:10; Start 09/26/17 at 11:00 Miscellaneous Information ([facility] Ordered Lab Info) SPECIFIC LAB TO BE . ONCE ONCE .XX ; Start 09/27/17 at 02:45; Stop 09/27/17 at 02:46; Status DC Ketorolac Tromethamine (Toradol) 10 mg Q6HR PO Last administered on 09/27/17at 06:25; Start 09/26/17 at 18:00; Stop 09/27/17 at 09:27; Status DC Acetaminophen (Tylenol) 1,000 mg Q6H PO Last administered on 09/27/17at 02:00; Start 09/26/17 at 14:00; Stop 09/27/17 at 09:27; Status DC Morphine Sulfate (Morphine Inj) 2 mg BUCCARO PRN IV PUSH for wound VAC change only Last administered on 09/27/17at 16:04; Start 09/27/17 at 16:00 Clonidine (Catapres) 0.1 mg Q4H PRN PO SBP>160, DBP>90; Start 09/28/17 at 12:15 Amlodipine Besylate (Norvasc) 5 mg ONCE ONCE PO Last administered on at 14:37; Start 09/28/17 at 12:15; Stop 09/28/17 at 13:12; Status DC Amlodipine Besylate (Norvasc) 5 mg DAILY PO Last administered on 09/29/17at 10: 09; Start 09/29/17 at 09:00 Ketorolac Tromethamine (Toradol Inj) 30 mg STK-MED ONCE IV PUSH ; Start at 12:00; Stop 09/28/17 at 12:34; Status DC Ondansetron HCl (Zofran Inj) 4 mg STK-MED ONCE IV PUSH ; Start 09/24/17 at 12:00 ; Stop 09/28/17 at 12:34; Status DC Propofol (Diprivan 200 Mg/20 ml Inj) 200 mg STK-MED ONCE IV ; Start 09/24/17 at 12:00; Stop 09/28/17 at 12:34; Status DC Miscellaneous Information ([facility] Ordered Lab Info) SPECIFIC LAB TO BE .. ONCE ONCE .XX ; Start 10/02/17 at 10:45; Stop 10/02/17 at 10:46 A/P Problem List: (1) Sepsis ICD Code: A41.9 - Sepsis, unspecified organism Status: Acute (2) Cellulitis of axillary region ICD Code: L03.119 - Cellulitis of unspecified part of limb Status: Acute (3) Hypothyroidism ICD Code: E03.9 - Hypothyroidism, unspecified Status: Chronic Assessment and Plan 56 years old female no signigicant PMH except for hypothyroidism Sepsis secondary to left axillary abscess S/P I and D with VAC placement 09/24- MRSA continue on IV antibiotics- vancomycin. ID ff - plan for VAC change- today - GS ff -Percocet prn for pain- - d/w her to ask for it - IV Morphine prn for wound VAC change hypothyroidism. - continue home Synthroid Hypokalemia- corrected some elevated readings- no known history of hypertension - pain contributing factor- continue Percocet prn for PAIN - will hold off on Toradol SCDs and Lovenox for DVT prophylaxis. Incentive spirometry hourly Encourage increase activity- PT consult- educate how to ambulate with a VAC Discharge Planning Pending clearance by ID and surgery Problem Qualifiers (1) Sepsis: Qualified Codes: A41.9 - Sepsis, unspecified organism Carlito Otero DO Sep 29, 2017 11:06
[2017-09-29] MEDS ORDERED: POTASSIUM CHLORIDE 20 MEQ CONTROLLED RELEASE TAB PO ONE (11:15)
[2017-09-29] MEDS: ACETAMINOPHEN 325 MG TAB PO PRN (11:29)
[2017-09-29 12:00] VITALS: BP 150/105; PULSE 81; RESP 20; TEMP 99.5; O2SAT 97
[2017-09-29] MEDS ORDERED: BISACODYL 10 MG SUPP RECTAL PRN (12:15)
[2017-09-29] MEDS ORDERED: MAGNESIUM HYDROXIDE SUSP 30 ML CUP PO PRN (12:15)
[2017-09-29] MEDS ORDERED: METOCLOPRAMIDE HCL 10 MG/2 ML VIAL IV PUSH PRN (12:15)
[2017-09-29] MEDS ORDERED: NALOXONE HCL 0.4 MG/ML AMP IV PUSH PRN (12:15)
[2017-09-29] MEDS ORDERED: LACTULOSE SYRUP 20 GM/30 ML CUP PO PRN (12:15)
[2017-09-29] MEDS ORDERED: MORPHINE SULFATE 2 MG/ML SYRINGE IV PUSH PRN (12:15)
[2017-09-29] MEDS ORDERED: SENNOSIDES 8.6 MG TAB PO PRN (12:15)
[2017-09-29] MEDS ORDERED: oxyCODONE/ACETAMINOPHEN 5 MG/325 MG TAB PO PRN (12:15)
[2017-09-29] MEDS ORDERED: SODIUM CHLORIDE 0.9% FLUSH 10 ML FLUSH IV FLUSH PRN (12:15)
[2017-09-29] MEDS ORDERED: MORPHINE SULFATE 4 MG/ML INJ IV PRN (13:00)
[2017-09-29] MEDS ORDERED: MORPHINE SULFATE 4 MG/ML INJ IV PUSH PRN (13:00)
[2017-09-29 16:00] VITALS: BP 159/77; PULSE 81; RESP 20; TEMP 98.5; O2SAT 96
[2017-09-29] MEDS: MORPHINE SULFATE 4 MG/ML INJ IV PUSH PRN (17:01)
[2017-09-29 17:55] LABS: HEMOGLOBIN A1C 5.3 % (4.3-6.0)
[2017-09-29 20:00] VITALS: BP 157/75; PULSE 71; PULSE 83; RESP 18; TEMP 97.2; O2SAT 97
[2017-09-29] MEDS: oxyCODONE/ACETAMINOPHEN 10 MG/325 MG TAB PO PRN (20:48)
[2017-09-30] VITALS: BP 146/70; PULSE 80; PULSE 81; RESP 16; TEMP 98.1; O2SAT 97
[2017-09-30] MEDS: VANCOMYCIN INJ 850 MG in SODIUM CHLOR 0.9% 250 ML INJ 250 ML IV SCH ×3 (02:35→18:22)
[2017-09-30] MEDS: MORPHINE SULFATE 4 MG/ML INJ IV PUSH PRN ×2 (02:35→10:17)
[2017-09-30 04:00] VITALS: BP 147/70; PULSE 71; PULSE 75; RESP 18; TEMP 97.5; O2SAT 96
[2017-09-30] MEDS: oxyCODONE/ACETAMINOPHEN 10 MG/325 MG TAB PO PRN ×2 (05:45→18:22)
[2017-09-30] MEDS: LEVOTHYROXINE SODIUM 88 MCG TAB PO SCH (05:45)
[2017-09-30 07:31] LABS: AUTOMATED NEUTROPHIL # 3.5 TH/MM3 (1.8-7.7); BASOPHIL % 0.8 % (0.0-2.0); EOSINOPHIL # 0.2 TH/MM3 (0-0.4); EOSINOPHIL % 4.9 % (0.0-4.0); HEMOGLOBIN 13.9 GM/DL (11.6-15.3); LYMPH % 17.3 % (9.0-44.0); LYMPHOCYTE # 0.9 TH/MM3 (1.0-4.8); MEAN CELL VOLUME 90.4 FL (80.0-100.0); MEAN CORPUSCULAR HEMOGLOBIN 30.7 PG (27.0-34.0); MEAN PLATELET VOLUME 8.3 FL (7.0-11.0); MONO % 7.1 % (0.0-8.0); MONOCYTE # 0.4 TH/MM3 (0-0.9); NEUT % 69.9 % (16.0-70.0); PLATELET COUNT 285 TH/MM3 (150-450); RED BLOOD COUNT 4.53 MIL/MM3 (4.00-5.30)
[2017-09-30 07:53] LABS: ALBUMIN 2.5 GM/DL (3.4-5.0); ALT (GPT) 19 U/L (10-53); AST (GOT) 19 U/L (15-37); BICARBONATE 26.8 MEQ/L (21.0-32.0); BLOOD UREA NITROGEN 6 MG/DL (7-18); CALCIUM 8.4 MG/DL (8.5-10.1); CHLORIDE 103 MEQ/L (98-107); CREATININE 0.53 MG/DL (0.50-1.00); GLOMERULAR FILTRATION RATE 120 ML/MIN (>89); GLUCOSE,RANDOM 79 MG/DL (74-106); PHOSPHORUS 3.7 MG/DL (2.5-4.9); SODIUM (NA) 139 MEQ/L (136-145)
[2017-09-30 07:55] LABS: ALKALINE PHOSPHATASE 85 U/L (45-117); TOTAL BILIRUBIN ADULT 0.2 MG/DL (0.2-1.0); TOTAL PROTEIN 6.4 GM/DL (6.4-8.2)
[2017-09-30 08:00] VITALS: BP 168/75; PULSE 71; PULSE 76; RESP 20; TEMP 98.1; O2SAT 96
[2017-09-30] MEDS: NICOTINE 14 MG/24 HR PATCH T-DERMAL SCH (09:00)
[2017-09-30] MEDS: REMOVE OLD PATCH T-DERMAL SCH (09:00)
[2017-09-30] MEDS: SODIUM CHLORIDE 0.9% FLUSH 10 ML FLUSH IV FLUSH SCH ×2 (10:14→20:42)
[2017-09-30] MEDS: DOCUSATE SODIUM 50 MG/SENNA 8.6 MG TAB PO SCH ×2 (10:14→20:42)
[2017-09-30] MEDS: amLODIPine BESYLATE 5 MG TAB PO SCH (10:14)
--- NOTE | 2017-09-30 10:48 | HHI.PR ---
Subjective Remarks 6-19 Still Has VAC in place and left axillary region Continue current antibiotics Positive MRSA Blood pressure is not controlled will adjust A.m. labs Discussed with patient and RN and case management 6-20 still has wound VAC IN PLACE IN LEFT AXILLARY REGION DW RN AND PT POSITIVE MRSA MONITOR BLOOD PRESSURES DW RN AND PT AND CM 6- had WOUND VAC REMOVED STATED HAD CHEST PAIN TO SURGERY-SOUNDS ATYPICAL NEVER SAID SHE HAD ANY TO ME WILL GET EKG AND TROPONINS DW RN AND PT AND SURGERY AND CM Objective Vitals Vital Signs Date Time Temp Pulse Resp B/P (MAP) Pulse Ox O2 Delivery O2 Flow Rate FiO2 09/30/17 04:15 Room Air 09/30/17 04:00 97.5 71 18 147/70 (95) 96 09/30/17 04:00 75 09/30/17 00:00 98.1 80 16 146/70 (95) 97 09/30/17 00:00 Room Air 09/30/17 00:00 81 09/29/17 20:00 Room Air 09/29/17 20:00 97.2 71 18 157/75 (102) 97 09/29/17 20:00 83 09/29/17 16:00 98.5 81 20 159/77 (104) 96 09/29/17 12:00 99.5 81 20 150/105 (120) 97 I/O 09/29/17 09/29/17 09/29/17 09/30/17 09/30/17 09/30/17 07:00 15:00 23:00 07:00 15:00 23:00 Intake Total 758.5 ml 1098.5 ml 258.5 ml Balance 758.5 ml 1098.5 ml 258.5 ml Intake Oral 500 ml 840 ml IV Total 258.5 ml 258.5 ml 258.5 ml # Voids 2 4 # Bowel Movements 1 0 Result Diagram: 09/30/17 0532 09/30/17 0532 Other Results Laboratory Tests Test 09/29/17 07:55 09/30/17 05:32 White Blood Count 5.5 TH/MM3 5.0 TH/MM3 Red Blood Count 4.60 MIL/MM3 4.53 MIL/MM3 Hemoglobin 14.0 GM/DL 13.9 GM/DL Hematocrit 41.6 % 41.0 % Mean Corpuscular Volume 90.6 FL 90.4 FL Mean Corpuscular Hemoglobin 30.5 PG 30.7 PG Mean Corpuscular Hemoglobin Concent 33.7 % 34.0 % Red Cell Distribution Width 14.5 % 15.0 % Platelet Count 266 TH/MM3 285 TH/MM3 Mean Platelet Volume 8.3 FL 8.3 FL Neutrophils (%) (Auto) 65.6 % 69.9 % Lymphocytes (%) (Auto) 19.8 % 17.3 % Monocytes (%) (Auto) 8.3 % 7.1 % Eosinophils (%) (Auto) 4.9 % 4.9 % Basophils (%) (Auto) 1.4 % 0.8 % Neutrophils # (Auto) 3.6 TH/MM3 3.5 TH/MM3 Lymphocytes # (Auto) 1.1 TH/MM3 0.9 TH/MM3 Monocytes # (Auto) 0.5 TH/MM3 0.4 TH/MM3 Eosinophils # (Auto) 0.3 TH/MM3 0.2 TH/MM3 Basophils # (Auto) 0.1 TH/MM3 0.0 TH/MM3 CBC Comment DIFF FINAL DIFF FINAL Differential Comment Blood Urea Nitrogen 8 MG/DL 6 MG/DL Creatinine 0.58 MG/DL 0.53 MG/DL Random Glucose 86 MG/DL 79 MG/DL Total Protein 6.3 GM/DL 6.4 GM/DL Albumin 2.5 GM/DL 2.5 GM/DL Calcium Level 8.4 MG/DL 8.4 MG/DL Phosphorus Level 3.3 MG/DL 3.7 MG/DL Magnesium Level 2.1 MG/DL 2.0 MG/DL Alkaline Phosphatase 83 U/L 85 U/L Aspartate Amino Transf (AST/SGOT) 13 U/L 19 U/L Alanine Aminotransferase (ALT/SGPT) 16 U/L 19 U/L Total Bilirubin 0.2 MG/DL 0.2 MG/DL Sodium Level 141 MEQ/L 139 MEQ/L Potassium Level 3.6 MEQ/L 3.9 MEQ/L Chloride Level 104 MEQ/L 103 MEQ/L Carbon Dioxide Level 28.2 MEQ/L 26.8 MEQ/L Anion Gap 9 MEQ/L 9 MEQ/L Estimat Glomerular Filtration Rate 108 ML/MIN 120 ML/MIN Hemoglobin A1c 5.3 % Free Thyroxine 1.38 NG/DL Thyroid Stimulating Hormone 3rd Gen 5.710 uIU/ML Imaging Last Impressions Chest X-Ray 09/22/17 1326 Signed Impressions: CONCLUSION: Negative examination. Soft Tissue Ultrasound 09/22/17 0000 Signed Impressions: CONCLUSION: 1. Probable lymph node as above. Objective Remarks GENERAL: Awake alert and oriented talkative and cooperative SKIN: Warm and dry. Left axillary region has VAC in place HEAD: Atraumatic. Normocephalic. EYES: Pupils equal and round. No scleral icterus. No injection or drainage. Extraocular muscles intact ENT: No nasal bleeding or discharge. Mucous membranes pink and moist. Tongue is midline NECK: Trachea midline. No JVD. Supple CARDIOVASCULAR: Regular rate and rhythm. S1-S2 no S3 or S4 RESPIRATORY: No accessory muscle use. Clear to auscultation. Breath sounds equal bilaterally. GASTROINTESTINAL: Abdomen soft, non-tender, nondistended. Hepatic and splenic margins not palpable. MUSCULOSKELETAL: Extremities without clubbing, cyanosis, or edema. No obvious deformities. NEUROLOGICAL: Awake and alert. No obvious cranial nerve deficits. Motor grossly within normal limits. 4 out of 5 muscle strength in the arms and legs. Normal speech. PSYCHIATRIC: Appropriate mood and affect; insight and judgment normal. Procedures 09/24 Sharp debridement irrigation incision drainage of left axillary abscess 3 x 5 cm with application of VAC dressing appliance Medications and IVs Current Medications Sodium Chloride 1,000 ml @ 999 mls/hr BOLUS ONCE IV Last administered on 09/22at 14:15; Start 09/22/17 at 13:30; Stop 09/22/17 at 14:30; Status DC Sodium Chloride 1,000 ml @ 999 mls/hr BOLUS ONCE IV Last administered on 09/22at 14:15; Start 09/22/17 at 13:30; Stop 09/22/17 at 14:30; Status DC Aztreonam 2000 mg/ Sodium Chloride 100 ml @ 200 mls/hr ONCE STAT IV Last administered on 09/22/17at 18:15; Start 09/22/17 at 15:05; Stop 09/22/17 at 15:34 ; Status DC Metronidazole 100 ml @ 100 mls/hr ONCE STAT IV Last administered on at 15:36; Start 09/22/17 at 15:05; Stop 09/22/17 at 16:04; Status DC Vancomycin HCl 1000 mg/Sodium Chloride 250 ml @ 250 mls/hr ONCE STAT IV Last administered on 09/22/17at 17:03; Start 09/22/17 at 15:05; Stop 09/22/17 at 16:04 ; Status DC Sodium Chloride 1,000 ml @ 70 mls/hr [id number] IV Last administered on at 11:47; Start 09/22/17 at 20:00; Stop 09/25/17 at 13:43; Status DC Sodium Chloride (NS Flush) 2 ml UNSCH PRN IV FLUSH FLUSH AFTER USING IV ACCESS ; Start 09/22/17 at 19:00 Sodium Chloride (NS Flush) 2 ml BID IV FLUSH Last administered on 09/29/17at 10: 17; Start 09/22/17 at 21:00; Stop 09/29/17 at 12:46; Status DC Acetaminophen (Tylenol) 650 mg Q4H PRN PO TEMP > 100.4 Last administered on at 11:29; Start 09/22/17 at 19:00; Stop 09/29/17 at 12:39; Status DC Enoxaparin Sodium (Lovenox Inj) 40 mg Q24H SQ Last administered on 09/22/17at 19 :51; Start 09/22/17 at 20:00; Status Future Hold Naloxone HCl (Narcan Inj) 0.4 mg UNSCH PRN IV PUSH SEE LABEL COMMENTS; Start at 19:00; Stop 09/29/17 at 12:42; Status DC Senna/Docusate Sodium (Nisha-Colace) 1 tab BID PO Last administered on at 10:09; Start 09/22/17 at 21:00; Stop 09/29/17 at 12:38; Status DC Magnesium Hydroxide (Milk Of Magnesia Liq) 30 ml Q12H PRN PO Mild constipation ; Start 09/22/17 at 19:00; Status UNV Sennosides (Senokot) 17.2 mg Q12H PRN PO Moderate constipation Last administered on 09/23/17at 16:39; Start 09/22/17 at 19:00 Bisacodyl (Dulcolax Supp) 10 mg DAILY PRN RECTAL SEVERE CONSITIPATION; Start at 19:00; Stop 09/29/17 at 12:40; Status DC Lactulose (Lactulose Liq) 30 ml DAILY PRN PO SEVERE CONSITIPATION; Start at 19:00; Stop 09/29/17 at 12:41; Status DC Vancomycin HCl 1000 mg/Sodium Chloride 250 ml @ 250 mls/hr Q12H IV ; Start at 19:00; Status UNV Levofloxacin/ Dextrose 150 ml @ 100 mls/hr Q24H IV Last administered on at 19:52; Start 09/22/17 at 20:00; Stop 09/25/17 at 08:19; Status DC Pharmacy Profile Note 0 ml @ 0 mls/hr UNSCH OTHER ; Start 09/22/17 at 19:15; Stop 09/25/17 at 14:13; Status DC Ketorolac Tromethamine (Toradol Inj) 15 mg Q6H PRN IV PUSH PAIN SCALE 1 TO 10 Last administered on 09/26/17at 12:35; Start 09/22/17 at 19:15; Stop 09/26/17 at 13:40; Status DC Vancomycin HCl 800 mg/Sodium Chloride 258 ml @ 250 mls/hr Q12H IV Last administered on 09/24/17at 05:15; Start 09/23/17 at 05:00; Stop 09/24/17 at 09:17 ; Status DC Sennosides (Senokot) 8.6 mg Q12HR PRN PO MILD CONSTIPATION; Start 09/22/17 at 20:45; Stop 09/29/17 at 12:57; Status DC Miscellaneous Information ([facility] Ordered Lab Info) SPECIFIC LAB TO BE ... ONCE ONCE .XX Last administered on 09/24/17at 04:50; Start 09/24/17 at 04:45; Stop 09/24/17 at 04:46; Status DC Levothyroxine Sodium (Synthroid) 88 mcg DAILY@0600 PO Last administered on 09/30at 05:45; Start 09/23/17 at 09:00 Nicotine (Habitrol 14 Mg Patch.24 Hr) 1 patch ONCE ONCE T-DERMAL Last administered on 09/23/17at 19:23; Start 09/23/17 at 18:30; Stop 09/23/17 at 19:12 ; Status DC Nicotine (Habitrol 14 Mg Patch.24 Hr) 1 patch DAILY T-DERMAL Last administered on 09/30/17at 09:00; Start 09/24/17 at 09:00 Miscellaneous Information 1 DAILY T-DERMAL Last administered on 09/28/17at 09:00 ; Start 09/24/17 at 09:00 Lactated Ringer's 1,000 ml @ 30 mls/hr Q24H PRN IV SEE LABEL COMMENTS; Start at 04:00; Stop 09/27/17 at 03:59; Status DC Sodium Chloride 500 ml @ 30 mls/hr [id number] PRN IV SEE LABEL COMMENTS; Start at 04:00; Stop 09/27/17 at 03:59; Status DC Povidone Iodine (Betadine 5% Antisepsis Kit) 1 applic NEWS ASSIGNMENT EDITOR PRN EACH NARE SEE LABEL COMMENTS; Start 09/24/17 at 04:00; Stop 09/27/17 at 03:59; Status DC Chlorhexidine Gluconate (Chlorhexidine 2% Cloth) 3 pack NEWS ASSIGNMENT EDITOR PRN TOPICAL SEE LABEL COMMENTS; Start 09/24/17 at 04:00; Stop 09/27/17 at 03:59; Status DC Acetaminophen 100 ml @ As Directed STK-MED ONCE IV ; Start 09/24/17 at 08:03; Stop 09/24/17 at 08:04; Status DC Bupivacaine HCl/ Epinephrine Bitart (Sensorcaine-Epinephrine Pf 0.5% Inj) 30 ml STK-MED ONCE .ROUTE Last administered on 09/24/17at 09:12; Start 09/24/17 at 09: 06; Stop 09/24/17 at 09:07; Status DC Miscellaneous Information ([facility] Ordered Lab Info) SPECIFIC LAB TO BE FARHAN... ONCE ONCE .XX ; Start 09/26/17 at 02:45; Stop 09/26/17 at 02:46; Status DC Vancomycin HCl 1000 mg/Sodium Chloride 250 ml @ 250 mls/hr Q12H IV Last administered on 09/26/17at 04:22; Start 09/24/17 at 15:00; Stop 09/26/17 at 09:07 ; Status DC Fentanyl Citrate (fentaNYL INJ) 200 mcg STK-MED ONCE .ROUTE ; Start 09/24/17 at 09:46; Stop 09/24/17 at 09:47; Status DC Midazolam HCl (Versed Inj) 2 mg STK-MED ONCE .ROUTE ; Start 09/24/17 at 09:46; Stop 09/24/17 at 09:47; Status DC Miscellaneous Information ([facility] Nursing Information) ALL NURSING DEPARTME... UNSCH PRN .XX SEE LABEL COMMENTS; Start 09/24/17 at 10:30; Stop 09/25/17 at 10: 29; Status DC Pharmacy Profile Note 0 ml @ 0 mls/hr UNSCH OTHER ; Start 09/25/17 at 13:45 Potassium Chloride 100 ml @ 100 mls/hr Q1H IV Last administered on 09/25/17at 17:08; Start 09/25/17 at 13:45; Stop 09/25/17 at 16:44; Status DC Oxycodone/ Acetaminophen (Percocet 5-325 Mg) 1 tab Q6H PRN PO PAIN SCALE 6 TO 10 Last administered on 09/29/17at 10:10; Start 09/25/17 at 14:00; Stop 09/29/17 at 12:16; Status DC Ondansetron HCl (Zofran Odt) 4 mg Q6H PRN PO NAUSEA; Start 09/25/17 at 14:00; Stop 09/29/17 at 12:43; Status DC Potassium Chloride (KCl) 20 meq ONCE ONCE PO Last administered on 09/25/17at 21 :44; Start 09/25/17 at 22:00; Stop 09/25/17 at 22:01; Status DC Vancomycin HCl 850 mg/Sodium Chloride 258.5 ml @ 250 mls/hr Q8H IV Last administered on 09/30/17at 02:35; Start 09/26/17 at 11:00 Miscellaneous Information ([facility] Ordered Lab Info) SPECIFIC LAB TO BE FARHAN... ONCE ONCE .XX ; Start 09/27/17 at 02:45; Stop 09/27/17 at 02:46; Status DC Ketorolac Tromethamine (Toradol) 10 mg Q6HR PO Last administered on 09/27/17at 06:25; Start 09/26/17 at 18:00; Stop 09/27/17 at 09:27; Status DC Acetaminophen (Tylenol) 1,000 mg Q6H PO Last administered on 09/27/17at 02:00; Start 09/26/17 at 14:00; Stop 09/27/17 at 09:27; Status DC Morphine Sulfate (Morphine Inj) 2 mg NEWS ASSIGNMENT EDITOR PRN IV PUSH for wound VAC change only Last administered on 09/30/17at 10:17; Start 09/27/17 at 16:00 Clonidine (Catapres) 0.1 mg Q4H PRN PO SBP>160, DBP>90; Start 09/28/17 at 12:15 Amlodipine Besylate (Norvasc) 5 mg ONCE ONCE PO Last administered on at 14:37; Start 09/28/17 at 12:15; Stop 09/28/17 at 13:12; Status DC Amlodipine Besylate (Norvasc) 5 mg DAILY PO Last administered on 09/30/17at 10: 14; Start 09/29/17 at 09:00 Ketorolac Tromethamine (Toradol Inj) 30 mg STK-MED ONCE IV PUSH ; Start at 12:00; Stop 09/28/17 at 12:34; Status DC Ondansetron HCl (Zofran Inj) 4 mg STK-MED ONCE IV PUSH ; Start 09/24/17 at 12:00 ; Stop 09/28/17 at 12:34; Status DC Propofol (Diprivan 200 Mg/20 ml Inj) 200 mg STK-MED ONCE IV ; Start 09/24/17 at 12:00; Stop 09/28/17 at 12:34; Status DC Miscellaneous Information ([facility] Ordered Lab Info) SPECIFIC LAB TO BE ... ONCE ONCE .XX ; Start 10/02/17 at 10:45; Stop 10/02/17 at 10:46 Potassium Chloride (KCl) 40 meq ONCE ONCE PO Last administered on 09/29/17at 11 :25; Start 09/29/17 at 11:15; Stop 09/29/17 at 11:16; Status DC Sodium Chloride (NS Flush) 2 ml UNSCH PRN IV FLUSH FLUSH AFTER USING IV ACCESS ; Start 09/29/17 at 12:15; Stop 09/29/17 at 12:46; Status DC Sodium Chloride (NS Flush) 2 ml BID IV FLUSH Last administered on 09/30/17at 10: 14; Start 09/29/17 at 21:00 Acetaminophen (Tylenol) 650 mg Q4H PRN PO TEMP > 100.4; Start 09/29/17 at 12:15 Ondansetron HCl (Zofran Odt) 4 mg Q6H PRN PO NAUSEA/VOMITING; Start 09/29/17 at 12:45 Metoclopramide HCl (Reglan Inj) 5 mg Q6H PRN IV PUSH NAUSEA OR VOMITING; Start 09/29/17 at 12:15 Acetaminophen (Tylenol) 650 mg Q6H PRN PO PAIN SCALE 1 TO 2; Start 09/29/17 at 12:15 Oxycodone/ Acetaminophen (Percocet 5-325 Mg) 1 tab Q6H PRN PO PAIN SCALE 3 TO 5; Start 09/29/17 at 12:15 Oxycodone/ Acetaminophen (Percocet 10-325 Mg) 1 tab Q6H PRN PO PAIN SCALE 6 TO 10 Last administered on 09/30/17at 05:45; Start 09/29/17 at 12:15 Morphine Sulfate (Morphine Inj) 2 mg Q3H PRN IV PUSH Pain 3-5; if unable to take PO; Start 09/29/17 at 13:00 Morphine Sulfate (Morphine Inj) 4 mg Q3H PRN IV PUSH Pain 6-10;if unable to take PO; Start 09/29/17 at 12:15; Stop 09/29/17 at 12:52; Status DC Morphine Sulfate (Morphine Inj) 4 mg Q3H PRN IV PUSH BREAKTHROUGH PAIN Last administered on 09/30/17at 02:35; Start 09/29/17 at 13:00 Naloxone HCl (Narcan Inj) 0.4 mg UNSCH PRN IV PUSH SEE LABEL COMMENTS; Start at 12:15 Senna/Docusate Sodium (Nisha-Colace) 1 tab BID PO Last administered on at 10:14; Start 09/29/17 at 21:00 Magnesium Hydroxide (Milk Of Magnesia Liq) 30 ml Q12H PRN PO Mild constipation ; Start 09/29/17 at 12:15 Sennosides (Senokot) 17.2 mg Q12H PRN PO Moderate constipation; Start 09/29/17 at 12:15; Stop 09/29/17 at 12:45; Status DC Bisacodyl (Dulcolax Supp) 10 mg DAILY PRN RECTAL SEVERE CONSITIPATION; Start at 12:15 Lactulose (Lactulose Liq) 30 ml DAILY PRN PO SEVERE CONSITIPATION; Start at 12:15 Morphine Sulfate (Morphine Inj) 4 mg Q3H PRN IV Pain 6-10;if unable to take PO ; Start 09/29/17 at 13:00 A/P Problem List: (1) Sepsis ICD Code: A41.9 - Sepsis, unspecified organism Status: Acute (2) Cellulitis of axillary region ICD Code: L03.119 - Cellulitis of unspecified part of limb Status: Acute (3) Hypothyroidism ICD Code: E03.9 - Hypothyroidism, unspecified Status: Chronic Assessment and Plan 56 years old female no signigicant PMH except for hypothyroidism Sepsis secondary to left axillary abscess S/P I and D with VAC placement 09/24- MRSA continue on IV antibiotics- vancomycin. ID ff - plan for VAC change- today - GS ff -Percocet prn for pain- - d/w her to ask for it - IV Morphine prn for wound VAC change hypothyroidism. - continue home Synthroid Hypokalemia- corrected some elevated readings- no known history of hypertension - pain contributing factor- continue Percocet prn for PAIN - will hold off on Toradol SCDs and Lovenox for DVT prophylaxis. Incentive spirometry hourly Encourage increase activity- PT consult- SOUNDS NON CARDIAC CHEST PAIN AFTER VAC REMOVE Discharge Planning Pending clearance by ID and surgery Problem Qualifiers (1) Sepsis: Qualified Codes: A41.9 - Sepsis, unspecified organism Carlito Otero DO Sep 30, 2017 10:48
--- NOTE | 2017-09-30 10:56 | HHI.PR ---
cc: Edu Mcintyre MD Subjective Subjective Notes DAILY PROGRESS NOTE FOR SURGICAL ATTENDING, DR. EDU MCINTYRE No issues Resting in bed Objective Vitals/I&O Vital Signs Date Time Temp Pulse Resp B/P (MAP) Pulse Ox O2 Delivery O2 Flow Rate FiO2 09/30/17 04:15 Room Air 09/30/17 04:00 97.5 71 18 147/70 (95) 96 09/28/17 08:00 3.00 Labs Laboratory Tests Test 09/30/17 05:32 White Blood Count 5.0 Red Blood Count 4.53 Hemoglobin 13.9 Hematocrit 41.0 Mean Corpuscular Volume 90.4 Mean Corpuscular Hemoglobin 30.7 Mean Corpuscular Hemoglobin Concent 34.0 Red Cell Distribution Width 15.0 Platelet Count 285 Mean Platelet Volume 8.3 Neutrophils (%) (Auto) 69.9 Lymphocytes (%) (Auto) 17.3 Monocytes (%) (Auto) 7.1 Eosinophils (%) (Auto) 4.9 Basophils (%) (Auto) 0.8 Neutrophils # (Auto) 3.5 Lymphocytes # (Auto) 0.9 Monocytes # (Auto) 0.4 Eosinophils # (Auto) 0.2 Basophils # (Auto) 0.0 CBC Comment DIFF FINAL Differential Comment Blood Urea Nitrogen 6 Creatinine 0.53 Random Glucose 79 Total Protein 6.4 Albumin 2.5 Calcium Level 8.4 Phosphorus Level 3.7 Magnesium Level 2.0 Alkaline Phosphatase 85 Aspartate Amino Transf (AST/SGOT) 19 Alanine Aminotransferase (ALT/SGPT) 19 Total Bilirubin 0.2 Sodium Level 139 Potassium Level 3.9 Chloride Level 103 Carbon Dioxide Level 26.8 Anion Gap 9 Estimat Glomerular Filtration Rate 120 Date/Time Source Procedure Growth Status 09/22/17 14:10 Blood Peripheral Aerobic Blood Culture - Final NO GROWTH IN 5 DAYS Complete 09/22/17 14:10 Blood Peripheral Anaerobic Blood Culture - Final NO GROWTH IN 5 DAYS Complete 09/24/17 09:10 Abscess Arm Fungal Smear - Final NO FUNGAL ELEMENTS SEEN. Resulted 09/24/17 09:10 Abscess Arm Fungal Culture Pending Resulted Radiology Last Impressions Chest X-Ray 09/22/17 1326 Signed Impressions: CONCLUSION: Negative examination. Soft Tissue Ultrasound 09/22/17 0000 Signed Impressions: CONCLUSION: 1. Probable lymph node as above. Cardiovascular: Regular Lungs: Clear Abdomen: Non-distended, Non-tender Narrative Exam LEFT axillary --- Wound Vac removed-- wound bed beefy red without drainage--- moist to dry dressing placed A/P Problem List: (1) Abscess of axilla, right ICD Codes: L02.411 - Cutaneous abscess of right axilla Status: Acute (2) Cellulitis of axillary region ICD Codes: L03.119 - Cellulitis of unspecified part of limb Status: Acute (3) Hypothyroidism ICD Codes: E03.9 - Hypothyroidism, unspecified Status: Chronic Assessment and Plan 56 year old female s/p I&D LEFT axillary abscess -Wound Vac removed at bedside -Moist to dry dressing BID--- okay to shower in between dressing changes -Regular diet -Antibiotics per ID -Patient c/o chest pain---informed Dr. Otero - will continue to follow peripherally Attending Statement NOTE FOR SURGICAL ATTENDING, DR. EDU MCINTYRE I agree with above assessment and plan. The exam, history, and the medical decision-making described in the above note were completed with the assistance of the mid-level provider. I reviewed and agree with the findings presented. The following services were provided during this hospital visit: Chart data review, vital sign assessments/reviewing monitor data Review of consultations notes if present. Medication orders/review and/or management Ordering and/or reviewing lab tests Ordering and/or interpreting/reviewing x-rays and/or diagnostic studies Care of the patient and discussion of the patient with the care team Documentation time To help prompt me to consider important information that might be impacting today's encounter and assessment, Information from prior notes written by myself or my colleagues may have been "brought forward/copy and pasted" into today's note. Sylvia Lamas/[facility] Counsel PEDRO Sep 30, 2017 10:56 Edu Mcintyre MD Sep 30, 2017 16:16
[2017-09-30 12:00] VITALS: BP 183/78; PULSE 76; PULSE 82; RESP 20; TEMP 98.5; O2SAT 95
[2017-09-30 13:44] LABS: TROPONIN I LESS THAN 0.02 NG/ML (0.02-0.05)
[2017-09-30 16:00] VITALS: BP 168/77; PULSE 87; PULSE 96; RESP 20; TEMP 100.7; O2SAT 97
--- NOTE | 2017-09-30 19:18 | EKG ---
Date Performed: 09/30/2017 Time Performed: 10:59:53 PTAGE: 56 years EKG: Sinus rhythm Poor R-wave progression Probabale normal variant POSSIBLE ANTERIOR MYOCARDIAL INFARCTION , OF INDETE RMINATE AGE ABNORMAL ECG PREVIOUS TRACING : 09/24/2017 00.30 Since the previous tracing, no significant change noted DOCTOR: Ramonita Severino Interpretating Date/Time 09/30/2017 19:16:26
[2017-09-30 20:00] VITALS: BP 101/56; PULSE 93; PULSE 95; RESP 20; TEMP 98.7; O2SAT 96
[2017-10-01] VITALS (11 sets, daily range): BP systolic 108–159; BP diastolic 54–72; PULSE 81–117; RESP 17–20; TEMP 98.1–102.8; O2SAT 93–97
[2017-10-01] MEDS: VANCOMYCIN INJ 850 MG in SODIUM CHLOR 0.9% 250 ML INJ 250 ML IV SCH ×3 (05:31→18:42)
[2017-10-01] MEDS: LEVOTHYROXINE SODIUM 88 MCG TAB PO SCH (05:32)
[2017-10-01] MEDS: REMOVE OLD PATCH T-DERMAL SCH (09:00)
[2017-10-01] MEDS: oxyCODONE/ACETAMINOPHEN 10 MG/325 MG TAB PO PRN ×3 (09:41→22:36)
[2017-10-01] MEDS: DOCUSATE SODIUM 50 MG/SENNA 8.6 MG TAB PO SCH ×2 (09:41→22:36)
[2017-10-01] MEDS: amLODIPine BESYLATE 5 MG TAB PO SCH (09:41)
[2017-10-01] MEDS: SODIUM CHLORIDE 0.9% FLUSH 10 ML FLUSH IV FLUSH SCH ×2 (09:42→22:37)
[2017-10-01] MEDS: NICOTINE 14 MG/24 HR PATCH T-DERMAL SCH (09:44)
--- NOTE | 2017-10-01 10:28 | HHI.PR ---
Subjective Remarks 6- Still Has VAC in place and left axillary region Continue current antibiotics Positive MRSA Blood pressure is not controlled will adjust A.m. labs Discussed with patient and RN and case management - still has wound VAC IN PLACE IN LEFT AXILLARY REGION DW RN AND PT POSITIVE MRSA MONITOR BLOOD PRESSURES DW RN AND PT AND CM 6- had WOUND VAC REMOVED STATED HAD CHEST PAIN TO SURGERY-SOUNDS ATYPICAL NEVER SAID SHE HAD ANY TO ME WILL GET EKG AND TROPONINS DW RN AND PT AND SURGERY AND CM 10-01 VAC REMOVED YESTERDAY HAD ATYPICAL CHEST PAIN YESTERDAY--NO MORE CHEST PAIN- TROPONIN WAS NEGATIVE DW RN AND PT AND CM IS TRULY HOMELESS-- HAS NO PLACE TO GO IF DISCHARGED COULD GO ON ZYVOX AT DC PER ID WHEN HAS PLACE TO GO Objective Vitals Vital Signs Date Time Temp Pulse Resp B/P (MAP) Pulse Ox O2 Delivery O2 Flow Rate FiO2 10/01/17 08:25 81 10/01/17 08:03 98.1 81 17 120/58 (78) 94 10/01/17 04:00 85 10/01/17 00:03 98.4 90 20 108/58 (75) 97 10/01/17 00:00 98.4 83 20 119/63 (81) 94 10/01/17 00:00 82 09/30/17 20:15 Room Air 09/30/17 20:00 95 09/30/17 20:00 98.7 93 20 101/56 (71) 96 09/30/17 16:00 100.7 96 20 168/77 (107) 97 09/30/17 16:00 87 09/30/17 12:00 76 09/30/17 12:00 98.5 82 20 183/78 (113) 95 I/O 09/30/17 09/30/17 09/30/17 10/01/17 10/01/17 10/01/17 07:00 15:00 23:00 07:00 15:00 23:00 Intake Total 258.5 ml 840 ml 240 ml Output Total 1200 ml Balance 258.5 ml -360 ml 240 ml Intake Oral 840 ml 240 ml IV Total 258.5 ml Output Urine Total 1200 ml # Voids 6 # Bowel Movements 0 0 Result Diagram: 09/30/17 0532 09/30/17 0532 Other Results Laboratory Tests Test 09/29/17 07:55 09/30/17 05:32 09/30/17 12:47 White Blood Count 5.5 TH/MM3 5.0 TH/MM3 Red Blood Count 4.60 MIL/MM3 4.53 MIL/MM3 Hemoglobin 14.0 GM/DL 13.9 GM/DL Hematocrit 41.6 % 41.0 % Mean Corpuscular Volume 90.6 FL 90.4 FL Mean Corpuscular Hemoglobin 30.5 PG 30.7 PG Mean Corpuscular Hemoglobin Concent 33.7 % 34.0 % Red Cell Distribution Width 14.5 % 15.0 % Platelet Count 266 TH/MM3 285 TH/MM3 Mean Platelet Volume 8.3 FL 8.3 FL Neutrophils (%) (Auto) 65.6 % 69.9 % Lymphocytes (%) (Auto) 19.8 % 17.3 % Monocytes (%) (Auto) 8.3 % 7.1 % Eosinophils (%) (Auto) 4.9 % 4.9 % Basophils (%) (Auto) 1.4 % 0.8 % Neutrophils # (Auto) 3.6 TH/MM3 3.5 TH/MM3 Lymphocytes # (Auto) 1.1 TH/MM3 0.9 TH/MM3 Monocytes # (Auto) 0.5 TH/MM3 0.4 TH/MM3 Eosinophils # (Auto) 0.3 TH/MM3 0.2 TH/MM3 Basophils # (Auto) 0.1 TH/MM3 0.0 TH/MM3 CBC Comment DIFF FINAL DIFF FINAL Differential Comment Blood Urea Nitrogen 8 MG/DL 6 MG/DL Creatinine 0.58 MG/DL 0.53 MG/DL Random Glucose 86 MG/DL 79 MG/DL Total Protein 6.3 GM/DL 6.4 GM/DL Albumin 2.5 GM/DL 2.5 GM/DL Calcium Level 8.4 MG/DL 8.4 MG/DL Phosphorus Level 3.3 MG/DL 3.7 MG/DL Magnesium Level 2.1 MG/DL 2.0 MG/DL Alkaline Phosphatase 83 U/L 85 U/L Aspartate Amino Transf (AST/SGOT) 13 U/L 19 U/L Alanine Aminotransferase (ALT/SGPT) 16 U/L 19 U/L Total Bilirubin 0.2 MG/DL 0.2 MG/DL Sodium Level 141 MEQ/L 139 MEQ/L Potassium Level 3.6 MEQ/L 3.9 MEQ/L Chloride Level 104 MEQ/L 103 MEQ/L Carbon Dioxide Level 28.2 MEQ/L 26.8 MEQ/L Anion Gap 9 MEQ/L 9 MEQ/L Estimat Glomerular Filtration Rate 108 ML/MIN 120 ML/MIN Hemoglobin A1c 5.3 % Free Thyroxine 1.38 NG/DL Thyroid Stimulating Hormone 3rd Gen 5.710 uIU/ML Total Creatine Kinase 59 U/L Troponin I LESS THAN 0.02 NG/ML Imaging Last Impressions Chest X-Ray 09/22/17 1326 Signed Impressions: CONCLUSION: Negative examination. Soft Tissue Ultrasound 09/22/17 0000 Signed Impressions: CONCLUSION: 1. Probable lymph node as above. Objective Remarks GENERAL: Awake alert and oriented talkative and cooperative SKIN: Warm and dry. Left axillary region IS DRESSED AND PACKED HEAD: Atraumatic. Normocephalic. EYES: Pupils equal and round. No scleral icterus. No injection or drainage. Extraocular muscles intact ENT: No nasal bleeding or discharge. Mucous membranes pink and moist. Tongue is midline NECK: Trachea midline. No JVD. Supple CARDIOVASCULAR: Regular rate and rhythm. S1-S2 no S3 or S4 RESPIRATORY: No accessory muscle use. Clear to auscultation. Breath sounds equal bilaterally. GASTROINTESTINAL: Abdomen soft, non-tender, nondistended. Hepatic and splenic margins not palpable. MUSCULOSKELETAL: Extremities without clubbing, cyanosis, or edema. No obvious deformities. NEUROLOGICAL: Awake and alert. No obvious cranial nerve deficits. Motor grossly within normal limits. 4 out of 5 muscle strength in the arms and legs. Normal speech. PSYCHIATRIC: Appropriate mood and affect; insight and judgment normal. Procedures 09/24 Sharp debridement irrigation incision drainage of left axillary abscess 3 x 5 cm with application of VAC dressing appliance Medications and IVs Current Medications Sodium Chloride 1,000 ml @ 999 mls/hr BOLUS ONCE IV Last administered on 09/22at 14:15; Start 09/22/17 at 13:30; Stop 09/22/17 at 14:30; Status DC Sodium Chloride 1,000 ml @ 999 mls/hr BOLUS ONCE IV Last administered on 09/22at 14:15; Start 09/22/17 at 13:30; Stop 09/22/17 at 14:30; Status DC Aztreonam 2000 mg/ Sodium Chloride 100 ml @ 200 mls/hr ONCE STAT IV Last administered on 09/22/17at 18:15; Start 09/22/17 at 15:05; Stop 09/22/17 at 15:34 ; Status DC Metronidazole 100 ml @ 100 mls/hr ONCE STAT IV Last administered on at 15:36; Start 09/22/17 at 15:05; Stop 09/22/17 at 16:04; Status DC Vancomycin HCl 1000 mg/Sodium Chloride 250 ml @ 250 mls/hr ONCE STAT IV Last administered on 09/22/17at 17:03; Start 09/22/17 at 15:05; Stop 09/22/17 at 16:04 ; Status DC Sodium Chloride 1,000 ml @ 70 mls/hr [id number] IV Last administered on at 11:47; Start 09/22/17 at 20:00; Stop 09/25/17 at 13:43; Status DC Sodium Chloride (NS Flush) 2 ml UNSCH PRN IV FLUSH FLUSH AFTER USING IV ACCESS ; Start 09/22/17 at 19:00 Sodium Chloride (NS Flush) 2 ml BID IV FLUSH Last administered on 09/29/17at 10: 17; Start 09/22/17 at 21:00; Stop 09/29/17 at 12:46; Status DC Acetaminophen (Tylenol) 650 mg Q4H PRN PO TEMP > 100.4 Last administered on at 11:29; Start 09/22/17 at 19:00; Stop 09/29/17 at 12:39; Status DC Enoxaparin Sodium (Lovenox Inj) 40 mg Q24H SQ Last administered on 09/22/17at 19 :51; Start 09/22/17 at 20:00; Status Future Hold Naloxone HCl (Narcan Inj) 0.4 mg UNSCH PRN IV PUSH SEE LABEL COMMENTS; Start at 19:00; Stop 09/29/17 at 12:42; Status DC Senna/Docusate Sodium (Nisha-Colace) 1 tab BID PO Last administered on at 10:09; Start 09/22/17 at 21:00; Stop 09/29/17 at 12:38; Status DC Magnesium Hydroxide (Milk Of Magnesia Liq) 30 ml Q12H PRN PO Mild constipation ; Start 09/22/17 at 19:00; Status UNV Sennosides (Senokot) 17.2 mg Q12H PRN PO Moderate constipation Last administered on 09/23/17at 16:39; Start 09/22/17 at 19:00 Bisacodyl (Dulcolax Supp) 10 mg DAILY PRN RECTAL SEVERE CONSITIPATION; Start at 19:00; Stop 09/29/17 at 12:40; Status DC Lactulose (Lactulose Liq) 30 ml DAILY PRN PO SEVERE CONSITIPATION; Start at 19:00; Stop 09/29/17 at 12:41; Status DC Vancomycin HCl 1000 mg/Sodium Chloride 250 ml @ 250 mls/hr Q12H IV ; Start at 19:00; Status UNV Levofloxacin/ Dextrose 150 ml @ 100 mls/hr Q24H IV Last administered on at 19:52; Start 09/22/17 at 20:00; Stop 09/25/17 at 08:19; Status DC Pharmacy Profile Note 0 ml @ 0 mls/hr UNSCH OTHER ; Start 09/22/17 at 19:15; Stop 09/25/17 at 14:13; Status DC Ketorolac Tromethamine (Toradol Inj) 15 mg Q6H PRN IV PUSH PAIN SCALE 1 TO 10 Last administered on 09/26/17at 12:35; Start 09/22/17 at 19:15; Stop 09/26/17 at 13:40; Status DC Vancomycin HCl 800 mg/Sodium Chloride 258 ml @ 250 mls/hr Q12H IV Last administered on 09/24/17at 05:15; Start 09/23/17 at 05:00; Stop 09/24/17 at 09:17 ; Status DC Sennosides (Senokot) 8.6 mg Q12HR PRN PO MILD CONSTIPATION; Start 09/22/17 at 20:45; Stop 09/29/17 at 12:57; Status DC Miscellaneous Information ([facility] Ordered Lab Info) SPECIFIC LAB TO BE FARHAN... ONCE ONCE .XX Last administered on 09/24/17at 04:50; Start 09/24/17 at 04:45; Stop 09/24/17 at 04:46; Status DC Levothyroxine Sodium (Synthroid) 88 mcg DAILY@0600 PO Last administered on 10/01at 05:32; Start 09/23/17 at 09:00 Nicotine (Habitrol 14 Mg Patch.24 Hr) 1 patch ONCE ONCE T-DERMAL Last administered on 09/23/17at 19:23; Start 09/23/17 at 18:30; Stop 09/23/17 at 19:12 ; Status DC Nicotine (Habitrol 14 Mg Patch.24 Hr) 1 patch DAILY T-DERMAL Last administered on 10/01/17at 09:44; Start 09/24/17 at 09:00 Miscellaneous Information 1 DAILY T-DERMAL Last administered on 10/01/17at 09:00 ; Start 09/24/17 at 09:00 Lactated Ringer's 1,000 ml @ 30 mls/hr Q24H PRN IV SEE LABEL COMMENTS; Start at 04:00; Stop 09/27/17 at 03:59; Status DC Sodium Chloride 500 ml @ 30 mls/hr [id number] PRN IV SEE LABEL COMMENTS; Start at 04:00; Stop 09/27/17 at 03:59; Status DC Povidone Iodine (Betadine 5% Antisepsis Kit) 1 applic STRING LASTER PRN EACH NARE SEE LABEL COMMENTS; Start 09/24/17 at 04:00; Stop 09/27/17 at 03:59; Status DC Chlorhexidine Gluconate (Chlorhexidine 2% Cloth) 3 pack STRING LASTER PRN TOPICAL SEE LABEL COMMENTS; Start 09/24/17 at 04:00; Stop 09/27/17 at 03:59; Status DC Acetaminophen 100 ml @ As Directed STK-MED ONCE IV ; Start 09/24/17 at 08:03; Stop 09/24/17 at 08:04; Status DC Bupivacaine HCl/ Epinephrine Bitart (Sensorcaine-Epinephrine Pf 0.5% Inj) 30 ml STK-MED ONCE .ROUTE Last administered on 09/24/17at 09:12; Start 09/24/17 at 09: 06; Stop 09/24/17 at 09:07; Status DC Miscellaneous Information ([facility] Ordered Lab Info) SPECIFIC LAB TO BE ... ONCE ONCE .XX ; Start 09/26/17 at 02:45; Stop 09/26/17 at 02:46; Status DC Vancomycin HCl 1000 mg/Sodium Chloride 250 ml @ 250 mls/hr Q12H IV Last administered on 09/26/17at 04:22; Start 09/24/17 at 15:00; Stop 09/26/17 at 09:07 ; Status DC Fentanyl Citrate (fentaNYL INJ) 200 mcg STK-MED ONCE .ROUTE ; Start 09/24/17 at 09:46; Stop 09/24/17 at 09:47; Status DC Midazolam HCl (Versed Inj) 2 mg STK-MED ONCE .ROUTE ; Start 09/24/17 at 09:46; Stop 09/24/17 at 09:47; Status DC Miscellaneous Information ([facility] [place] [facility] Information) ALL NURSING DEPARTME... UNSCH PRN .XX SEE LABEL COMMENTS; Start 09/24/17 at 10:30; Stop 09/25/17 at 10: 29; Status DC Pharmacy Profile Note 0 ml @ 0 mls/hr UNSCH OTHER ; Start 09/25/17 at 13:45 Potassium Chloride 100 ml @ 100 mls/hr Q1H IV Last administered on 09/25/17at 17:08; Start 09/25/17 at 13:45; Stop 09/25/17 at 16:44; Status DC Oxycodone/ Acetaminophen (Percocet 5-325 Mg) 1 tab Q6H PRN PO PAIN SCALE 6 TO 10 Last administered on 09/29/17at 10:10; Start 09/25/17 at 14:00; Stop 09/29/17 at 12:16; Status DC Ondansetron HCl (Zofran Odt) 4 mg Q6H PRN PO NAUSEA; Start 09/25/17 at 14:00; Stop 09/29/17 at 12:43; Status DC Potassium Chloride (KCl) 20 meq ONCE ONCE PO Last administered on 09/25/17at 21 :44; Start 09/25/17 at 22:00; Stop 09/25/17 at 22:01; Status DC Vancomycin HCl 850 mg/Sodium Chloride 258.5 ml @ 250 mls/hr Q8H IV Last administered on 10/01/17at 05:31; Start 09/26/17 at 11:00 Miscellaneous Information ([facility] Ordered Lab Info) SPECIFIC LAB TO BE FARHAN... ONCE ONCE .XX ; Start 09/27/17 at 02:45; Stop 09/27/17 at 02:46; Status DC Ketorolac Tromethamine (Toradol) 10 mg Q6HR PO Last administered on 09/27/17at 06:25; Start 09/26/17 at 18:00; Stop 09/27/17 at 09:27; Status DC Acetaminophen (Tylenol) 1,000 mg Q6H PO Last administered on 09/27/17at 02:00; Start 09/26/17 at 14:00; Stop 09/27/17 at 09:27; Status DC Morphine Sulfate (Morphine Inj) 2 mg STRING LASTER PRN IV PUSH for wound VAC change only Last administered on 09/30/17at 10:17; Start 09/27/17 at 16:00 Clonidine (Catapres) 0.1 mg Q4H PRN PO SBP>160, DBP>90 Last administered on at 19:13; Start 09/28/17 at 12:15 Amlodipine Besylate (Norvasc) 5 mg ONCE ONCE PO Last administered on at 14:37; Start 09/28/17 at 12:15; Stop 09/28/17 at 13:12; Status DC Amlodipine Besylate (Norvasc) 5 mg DAILY PO Last administered on 10/01/17at 09: 41; Start 09/29/17 at 09:00 Ketorolac Tromethamine (Toradol Inj) 30 mg STK-MED ONCE IV PUSH ; Start at 12:00; Stop 09/28/17 at 12:34; Status DC Ondansetron HCl (Zofran Inj) 4 mg STK-MED ONCE IV PUSH ; Start 09/24/17 at 12:00 ; Stop 09/28/17 at 12:34; Status DC Propofol (Diprivan 200 Mg/20 ml Inj) 200 mg STK-MED ONCE IV ; Start 09/24/17 at 12:00; Stop 09/28/17 at 12:34; Status DC Miscellaneous Information ([facility] Ordered Lab Info) SPECIFIC LAB TO BE .. ONCE ONCE .XX ; Start 10/02/17 at 10:45; Stop 10/02/17 at 10:46 Potassium Chloride (KCl) 40 meq ONCE ONCE PO Last administered on 09/29/17at 11 :25; Start 09/29/17 at 11:15; Stop 09/29/17 at 11:16; Status DC Sodium Chloride (NS Flush) 2 ml UNSCH PRN IV FLUSH FLUSH AFTER USING IV ACCESS ; Start 09/29/17 at 12:15; Stop 09/29/17 at 12:46; Status DC Sodium Chloride (NS Flush) 2 ml BID IV FLUSH Last administered on 10/01/17at 09: 42; Start 09/29/17 at 21:00 Acetaminophen (Tylenol) 650 mg Q4H PRN PO TEMP > 100.4; Start 09/29/17 at 12:15 Ondansetron HCl (Zofran Odt) 4 mg Q6H PRN PO NAUSEA/VOMITING; Start 09/29/17 at 12:45 Metoclopramide HCl (Reglan Inj) 5 mg Q6H PRN IV PUSH NAUSEA OR VOMITING; Start 09/29/17 at 12:15 Acetaminophen (Tylenol) 650 mg Q6H PRN PO PAIN SCALE 1 TO 2; Start 09/29/17 at 12:15 Oxycodone/ Acetaminophen (Percocet 5-325 Mg) 1 tab Q6H PRN PO PAIN SCALE 3 TO 5; Start 09/29/17 at 12:15 Oxycodone/ Acetaminophen (Percocet 10-325 Mg) 1 tab Q6H PRN PO PAIN SCALE 6 TO 10 Last administered on 10/01/17at 09:41; Start 09/29/17 at 12:15 Morphine Sulfate (Morphine Inj) 2 mg Q3H PRN IV PUSH Pain 3-5; if unable to take PO; Start 09/29/17 at 13:00 Morphine Sulfate (Morphine Inj) 4 mg Q3H PRN IV PUSH Pain 6-10;if unable to take PO; Start 09/29/17 at 12:15; Stop 09/29/17 at 12:52; Status DC Morphine Sulfate (Morphine Inj) 4 mg Q3H PRN IV PUSH BREAKTHROUGH PAIN Last administered on 09/30/17at 02:35; Start 09/29/17 at 13:00 Naloxone HCl (Narcan Inj) 0.4 mg UNSCH PRN IV PUSH SEE LABEL COMMENTS; Start at 12:15 Senna/Docusate Sodium (Nisha-Colace) 1 tab BID PO Last administered on at 09:41; Start 09/29/17 at 21:00 Magnesium Hydroxide (Milk Of Magnesia Liq) 30 ml Q12H PRN PO Mild constipation ; Start 09/29/17 at 12:15 Sennosides (Senokot) 17.2 mg Q12H PRN PO Moderate constipation; Start 09/29/17 at 12:15; Stop 09/29/17 at 12:45; Status DC Bisacodyl (Dulcolax Supp) 10 mg DAILY PRN RECTAL SEVERE CONSITIPATION; Start at 12:15 Lactulose (Lactulose Liq) 30 ml DAILY PRN PO SEVERE CONSITIPATION; Start at 12:15 Morphine Sulfate (Morphine Inj) 4 mg Q3H PRN IV Pain 6-10;if unable to take PO Last administered on 10/01/17at 05:31; Start 09/29/17 at 13:00 A/P Problem List: (1) Sepsis ICD Code: A41.9 - Sepsis, unspecified organism Status: Acute (2) Cellulitis of axillary region ICD Code: L03.119 - Cellulitis of unspecified part of limb Status: Acute (3) Hypothyroidism ICD Code: E03.9 - Hypothyroidism, unspecified Status: Chronic Assessment and Plan 56 years old female no signigicant PMH except for hypothyroidism Sepsis secondary to left axillary abscess S/P I and D with VAC placement 09/24- MRSA continue on IV antibiotics- vancomycin. ID ff - plan for VAC change- today - GS ff -Percocet prn for pain- - d/w her to ask for it - IV Morphine prn for wound VAC change VAC HAS BEEN REMOVED CONTINUE WOUND CARE hypothyroidism. - continue home Synthroid Hypokalemia- corrected some elevated readings- no known history of hypertension - pain contributing factor- continue Percocet prn for PAIN - will hold off on Toradol SCDs and Lovenox for DVT prophylaxis. Incentive spirometry hourly Encourage increase activity- PT consult- SOUNDS NON CARDIAC CHEST PAIN AFTER VAC REMOVE DW group practice pediatrician Planning CAN GO ON PO ZYVOX AT DISCHARGE WHEN WOUND IMPROVED SINCE SHE IS HOMELESS Problem Qualifiers (1) Sepsis: Qualified Codes: A41.9 - Sepsis, unspecified organism Carlito Otero DO Oct 01, 2017 10:28
[2017-10-01] MEDS: ACETAMINOPHEN 325 MG TAB PO PRN (16:02)
[2017-10-02] VITALS (7 sets, daily range): BP systolic 98–143; BP diastolic 52–71; PULSE 76–115; RESP 18–19; TEMP 98.9–102.6; O2SAT 93–98
[2017-10-02] MEDS: VANCOMYCIN INJ 850 MG in SODIUM CHLOR 0.9% 250 ML INJ 250 ML IV SCH ×2 (03:10→11:06)
[2017-10-02] MEDS: LEVOTHYROXINE SODIUM 88 MCG TAB PO SCH (06:07)
[2017-10-02] MEDS: oxyCODONE/ACETAMINOPHEN 10 MG/325 MG TAB PO PRN ×2 (06:08→12:15)
[2017-10-02] MEDS ORDERED: Vancomycin Consult Pharmacy 1 EA OTHER SCH (08:15)
--- NOTE | 2017-10-02 08:16 | HHI.PR ---
Subjective Remarks Patient seen and examined this morning. T-max 100.4 this morning. Reports subjective fevers and chills overnight. Denies chest pain or difficulty breathing. Denies any itching. Objective Vital Signs Date Time Temp Pulse Resp B/P (MAP) Pulse Ox O2 Delivery O2 Flow Rate FiO2 10/02/17 04:00 100.4 98 18 133/67 (89) 95 10/02/17 04:00 81 10/02/17 00:00 98.9 76 18 98/55 (69) 97 10/02/17 00:00 83 10/01/17 23:36 16 10/01/17 20:00 94 10/01/17 19:45 Room Air 10/01/17 19:44 99.3 93 18 119/54 (75) 95 10/01/17 16:01 102.8 112 20 159/72 (101) 95 10/01/17 16:00 117 10/01/17 12:01 98.8 91 17 120/57 (78) 93 10/01/17 12:00 84 10/01/17 08:25 81 I/O 10/01/17 10/01/17 10/01/17 10/02/17 10/02/17 10/02/17 06:59 14:59 22:59 06:59 14:59 22:59 Intake Total 240 ml 480 ml Output Total 0 ml Balance 240 ml 480 ml Intake Oral 240 ml 480 ml Stool Total 0 ml # Voids 6 4 3 # Bowel Movements 0 1 Result Diagram: 09/30/17 0532 09/30/17 0532 Imaging Last Impressions Chest X-Ray 09/22/17 1326 Signed Impressions: CONCLUSION: Negative examination. Soft Tissue Ultrasound 09/22/17 0000 Signed Impressions: CONCLUSION: 1. Probable lymph node as above. Objective Remarks GENERAL: Disheveled appearing, no acute distress SKIN: Warm and dry. Left axillary region with dressing that is clean dry and intact. She has diffuse erythematous macules and papules on back, skin is very dry to lower extremities HEAD: Normocephalic. EYES: No scleral icterus. No injection or drainage. NECK: Supple, trachea midline. No JVD or lymphadenopathy. CARDIOVASCULAR: Regular rate and rhythm without murmurs, gallops, or rubs. RESPIRATORY: Breath sounds equal bilaterally. No accessory muscle use. GASTROINTESTINAL: Abdomen soft, non-tender, nondistended. MUSCULOSKELETAL: No cyanosis, or edema. A/P Problem List: (1) Sepsis ICD Code: A41.9 - Sepsis, unspecified organism Status: Acute (2) Abscess of axilla, right ICD Code: L02.411 - Cutaneous abscess of right axilla Status: Acute (3) S/P debridement ICD Code: Z98.890 - Other specified postprocedural states (4) Hypothyroidism ICD Code: E03.9 - Hypothyroidism, unspecified Status: Chronic Assessment and Plan In summary this is a 56-year-old female patient who is homeless who was admitted to [facility] with a left axillary abscess with sepsis Sepsis secondary to left axillary abscess -Status post I&D with wound VAC placed on September 24, 04/15 cultures grew MRSA -Wound VAC has been removed -Blood cultures show no growth 5 days -Antibiotics per infectious disease, continue vancomycin -General surgery following -Anticipate discharge Wednesday on Zyvox Hypothyroidism -Continue Synthroid HTN -Continue amlodipine 5 mg daily DVT prophylaxis: Bilateral SCDs Discharge Planning Anticipate DC Wednesday on p.o. Zyvox Problem Qualifiers (1) Sepsis: Qualified Codes: A41.9 - Sepsis, unspecified organism Lizeth Rodgers MD Oct 02, 2017 08:16
[2017-10-02] MEDS: amLODIPine BESYLATE 5 MG TAB PO SCH (08:20)
[2017-10-02] MEDS: ACETAMINOPHEN 325 MG TAB PO PRN ×3 (08:22→21:19)
[2017-10-02] MEDS: NICOTINE 14 MG/24 HR PATCH T-DERMAL SCH (08:23)
[2017-10-02] MEDS: DOCUSATE SODIUM 50 MG/SENNA 8.6 MG TAB PO SCH ×2 (09:00→21:19)
[2017-10-02] MEDS: REMOVE OLD PATCH T-DERMAL SCH (09:00)
[2017-10-02] MEDS: SODIUM CHLORIDE 0.9% FLUSH 10 ML FLUSH IV FLUSH SCH ×2 (09:00→21:20)
[2017-10-02 09:03] LABS: AUTOMATED NEUTROPHIL # 2.6 TH/MM3 (1.8-7.7); BASOPHIL % 0.2 % (0.0-2.0); EOSINOPHIL # 0.1 TH/MM3 (0-0.4); EOSINOPHIL % 3.7 % (0.0-4.0); HEMATOCRIT 41.5 % (35.0-46.0); HEMOGLOBIN 14.2 GM/DL (11.6-15.3); LYMPH % 7.9 % (9.0-44.0); LYMPHOCYTE # 0.2 TH/MM3 (1.0-4.8); MEAN CELL VOLUME 90.4 FL (80.0-100.0); MEAN CORPUSCULAR HEMOGLOBIN 30.9 PG (27.0-34.0); MEAN CORPUSCULAR HGB CONC 34.2 % (32.0-36.0); MEAN PLATELET VOLUME 8.3 FL (7.0-11.0); MONO % 2.7 % (0.0-8.0); MONOCYTE # 0.1 TH/MM3 (0-0.9); NEUT % 85.5 % (16.0-70.0); PLATELET COUNT 223 TH/MM3 (150-450); RED BLOOD COUNT 4.59 MIL/MM3 (4.00-5.30)
[2017-10-02 09:39] LABS: ALBUMIN 2.7 GM/DL (3.4-5.0); AST (GOT) 36 U/L (15-37); BICARBONATE 23.9 MEQ/L (21.0-32.0); BLOOD UREA NITROGEN 9 MG/DL (7-18); CALCIUM 8.6 MG/DL (8.5-10.1); CHLORIDE 99 MEQ/L (98-107); CREATININE 0.65 MG/DL (0.50-1.00); GLOMERULAR FILTRATION RATE 95 ML/MIN (>89); GLUCOSE,RANDOM 83 MG/DL (74-106); SODIUM (NA) 135 MEQ/L (136-145)
[2017-10-02] MEDS ORDERED: SODIUM CHLORID 0.9% 500 ML INJ 500 ML IV ONE (10:00)
[2017-10-02 10:23] LABS: ALKALINE PHOSPHATASE 96 U/L (45-117); ALT (GPT) 42 U/L (10-53); PHOSPHORUS 3.2 MG/DL (2.5-4.9); TOTAL BILIRUBIN ADULT 0.2 MG/DL (0.2-1.0); TOTAL PROTEIN 6.9 GM/DL (6.4-8.2)
[2017-10-02] MEDS ORDERED: PHARMACY ORDERED LAB ONE (10:45)
--- NOTE | 2017-10-02 17:53 | RADRPT ---
EXAM DATE: 10/02/2017 5:18 PM EDT AGE/SEX: 56 years / Female INDICATIONS: Shortness of breath. Evaluate for pneumonia. CLINICAL DATA: This is the patient's initial encounter. Patient reports that signs and symptoms have been present for 1 day and indicates a pain score of 0/10. MEDICAL/SURGICAL HISTORY: Chronic obstructive pulmonary disease. Asthma. None. COMPARISON: [facility] [place], 09/22/2017. . FINDINGS: A single AP view of the chest demonstrates the lungs to be symmetrically aerated without evidence of mass, infiltrate or effusion. The cardiomediastinal contours are unremarkable. Osseous structures a re intact. CONCLUSION: Negative examination. Electronically signed by: Daquan Flores MD 10/02/2017 5:51 PM EDT
[2017-10-02 18:13] LABS: BACTERIA, URINE OCC /hpf; BILIRUBIN, URINE NEG (NEG); BLOOD, URINE SMALL (NEG); GLUCOSE,URINE NEG (NEG); KETONE, URINE NEG (NEG); MUCUS URINE FEW /lpf (OCC); NITRITE,URINE NEG (NEG); SQUAMOUS EPITHELIAL CELL URINE <1 /hpf (0-5); URINE COLOR YELLOW (YELLW/STRAW); URINE LEUKOCYTE ESTERASE NEG (NEG)
[2017-10-02] MEDS: ONDANSETRON ODT 4 MG TAB PO PRN (18:47)
[2017-10-02] MEDS ORDERED: VANCOMYCIN INJ 750 MG in SODIUM CHLOR 0.9% 250 ML INJ 250 ML IV SCH (19:00)
--- NOTE | 2017-10-02 20:12 | HHI.IDPN ---
Subjective Subjective Remarks ID Xcover for 56 y/o F with MRSA axillary abscess chart reviewed Overnight events reviewed Rash fine macular rash all over the body. No diarrhea New onset of fevers. gonzalez cultures ordered. Antibiotics vancomycin Lines Lines ok Past Medical History reviewed Allergies: Coded Allergies: Sulfa (Sulfonamide Antibiotics) (Verified Allergy, Severe, SHOCK, 09/22/17) bee venom protein (honey bee) (Verified Allergy, Severe, SHOCK, 09/22/17) cortisone (Verified Allergy, Severe, Psychosis, 09/22/17) penicillin G (Verified Allergy, Severe, SHOCK, 09/22/17) procaine (Verified Allergy, Severe, SOB, 09/22/17) Uncoded Allergies: ALL NARCOTICS (Allergy, Severe, AGITATION, 01/03/15) . TOMATO SEEDS (Allergy, Severe, "CAN'T BREATH", 01/03/15) . eggplant seeds (Allergy, Mild, Hives, 02/11/16) Objective . Vital Signs Date Time Temp Pulse Resp B/P (MAP) Pulse Ox O2 Delivery O2 Flow Rate FiO2 10/02/17 17:43 101.1 10/02/17 15:50 102.6 115 18 143/71 (95) 95 10/02/17 12:00 100.6 104 18 99/52 (68) 96 10/02/17 08:00 96 Room Air 10/02/17 08:00 110 10/02/17 08:00 98.9 92 18 111/53 (72) 93 10/02/17 04:00 100.4 98 18 133/67 (89) 95 10/02/17 04:00 81 10/02/17 00:00 98.9 76 18 98/55 (69) 97 10/02/17 00:00 83 10/01/17 23:36 16 10/02/17 10/02/17 10/03/17 15:00 23:00 07:00 Intake Total 1480 ml Balance 1480 ml Intake Oral 480 ml IV Total 1000 ml # Voids 5 # Bowel Movements 3 . Laboratory Tests Test 10/02/17 07:38 White Blood Count 3.0 TH/MM3 Red Blood Count 4.59 MIL/MM3 Hemoglobin 14.2 GM/DL Hematocrit 41.5 % Mean Corpuscular Volume 90.4 FL Mean Corpuscular Hemoglobin 30.9 PG Mean Corpuscular Hemoglobin Concent 34.2 % Red Cell Distribution Width 15.0 % Platelet Count 223 TH/MM3 Mean Platelet Volume 8.3 FL Neutrophils (%) (Auto) 85.5 % Lymphocytes (%) (Auto) 7.9 % Monocytes (%) (Auto) 2.7 % Eosinophils (%) (Auto) 3.7 % Basophils (%) (Auto) 0.2 % Neutrophils # (Auto) 2.6 TH/MM3 Lymphocytes # (Auto) 0.2 TH/MM3 Monocytes # (Auto) 0.1 TH/MM3 Eosinophils # (Auto) 0.1 TH/MM3 Basophils # (Auto) 0.0 TH/MM3 CBC Comment DIFF FINAL Differential Comment Laboratory Tests Test 10/02/17 07:38 10/02/17 18:05 Blood Urea Nitrogen 9 MG/DL Creatinine 0.65 MG/DL Random Glucose 83 MG/DL Total Protein 6.9 GM/DL Albumin 2.7 GM/DL Calcium Level 8.6 MG/DL Phosphorus Level 3.2 MG/DL Magnesium Level 2.0 MG/DL Alkaline Phosphatase 96 U/L Aspartate Amino Transf (AST/SGOT) 36 U/L Alanine Aminotransferase (ALT/SGPT) 42 U/L Total Bilirubin 0.2 MG/DL Sodium Level 135 MEQ/L Potassium Level 3.9 MEQ/L Chloride Level 99 MEQ/L Carbon Dioxide Level 23.9 MEQ/L Anion Gap 12 MEQ/L Estimat Glomerular Filtration Rate 95 ML/MIN Lactic Acid Level 1.3 mmol/L Microbiology Date/Time Source Procedure Growth Status 10/02/17 18:05 Blood Peripheral Aerobic Blood Culture Pending Received 10/02/17 18:05 Blood Peripheral Anaerobic Blood Culture Pending Received 10/02/17 17:55 Blood Peripheral Aerobic Blood Culture Pending Received 10/02/17 17:55 Blood Peripheral Anaerobic Blood Culture Pending Received 10/02/17 17:45 Urine Catheterized Urine Urine Culture Pending Received Imaging Last Impressions Chest X-Ray 09/22/17 1326 Signed Impressions: CONCLUSION: Negative examination. Soft Tissue Ultrasound 09/22/17 0000 Signed Impressions: CONCLUSION: 1. Probable lymph node as above. Physical Exam CONSTITUTIONAL/GENERAL: This is an adequately nourished patient, in no apparent distress. TUBES/LINES/DRAINS: SKIN: No jaundice, diffuse rashes STATUS LOCALIS: L axilla with VAC in place resolution of surrounding indration and erythema CARDIOVASCULAR: Regular rate and rhythm without murmurs, gallops, or rubs. No JVD. Peripheral pulses symmetric. RESPIRATORY/CHEST: Symmetric, unlabored respirations. Clear to auscultation. Breath sounds equal bilaterally. No wheezes, rales, or rhonchi. GASTROINTESTINAL: Abdomen soft, non-tender, nondistended. No hepato-splenomegaly , or palpable masses. No guarding. Bowel sounds present. MUSCULOSKELETAL: Extremities without clubbing, cyanosis, or edema. No joint tenderness or effusion noted. No calf tenderness. No mottling or clubbing. NEUROLOGICAL: Awake and alert. Non focal PSYCHIATRIC: calm cooperative Assessment & Plan Remarks MRSA L axilla abscess, sp debridement, VAC placed New fever: drug rash, less likely to be new fever Leucopenia: ? vanco induced. Rash: Vanco IV induced. Recs Ordered Gonzalez cultures CXR reviewed. DC Vanco IV Start Oral zyvox Famotidine IV start Benadryl scheduled for a day then please change to prn. Check urine eosinophils. Follow Cr and UO. Follow temps. Will follow along. Elba Guzman MD Oct 02, 2017 20:12
[2017-10-02] MEDS ORDERED: FAMOTIDINE 20 MG/2 ML VIAL IV PUSH SCH (20:15)
[2017-10-02] MEDS: LINEZOLID 600 MG TAB PO SCH (21:19)
[2017-10-02] MEDS: diphenhydrAMINE HCL 50 MG/ML VIAL IV PUSH SCH (21:20)
[2017-10-03] VITALS (8 sets, daily range): BP systolic 87–125; BP diastolic 55–64; PULSE 73–113; RESP 17–18; TEMP 97.9–101.7; O2SAT 94–97
[2017-10-03] MEDS: oxyCODONE/ACETAMINOPHEN 10 MG/325 MG TAB PO PRN ×4 (00:19→20:28)
[2017-10-03] MEDS: diphenhydrAMINE HCL 50 MG/ML VIAL IV PUSH SCH ×5 (01:53→20:30)
[2017-10-03] MEDS: ACETAMINOPHEN 325 MG TAB PO PRN (01:53)
[2017-10-03] MEDS: LEVOTHYROXINE SODIUM 88 MCG TAB PO SCH (06:33)
--- NOTE | 2017-10-03 06:59 | HHI.PR ---
Subjective Remarks Patient seen and examined this morning. Patient with a T-max last night of 102.6. She continues to be febrile this morning. She continues to have intermittent tachycardia and hypotension. She states last night she did not sleep well because of on and off sweats and chills. Objective Vital Signs Date Time Temp Pulse Resp B/P (MAP) Pulse Ox O2 Delivery O2 Flow Rate FiO2 10/03/17 04:00 99.0 86 17 87/55 (66) 96 10/03/17 03:55 84 10/03/17 01:13 18 10/03/17 00:04 109 10/03/17 00:00 Room Air 10/03/17 00:00 101.7 113 17 97/58 (71) 97 10/02/17 21:20 Room Air 10/02/17 20:00 99.9 108 19 110/57 (74) 98 10/02/17 20:00 108 10/02/17 17:43 101.1 10/02/17 15:50 102.6 115 18 143/71 (95) 95 10/02/17 12:00 100.6 104 18 99/52 (68) 96 10/02/17 08:00 96 Room Air 10/02/17 08:00 110 10/02/17 08:00 98.9 92 18 111/53 (72) 93 I/O 10/02/17 10/02/17 10/02/17 10/03/17 10/03/17 10/03/17 07:00 15:00 23:00 07:00 15:00 23:00 Intake Total 1480 ml Balance 1480 ml Intake Oral 480 ml IV Total 1000 ml # Voids 3 5 # Bowel Movements 1 3 Result Diagram: 10/02/17 0738 10/02/17 0738 Imaging Last Impressions Chest X-Ray 10/02/17 0000 Signed Impressions: CONCLUSION: Negative examination. Soft Tissue Ultrasound 09/22/17 0000 Signed Impressions: CONCLUSION: 1. Probable lymph node as above. Objective Remarks GENERAL: Disheveled appearing, no acute distress SKIN: Warm and dry. Left axillary region with dressing that is clean dry and intact. HEAD: Normocephalic. EYES: No scleral icterus. No injection or drainage. NECK: Supple, trachea midline. No JVD or lymphadenopathy. CARDIOVASCULAR: Regular rate and rhythm without murmurs, gallops, or rubs. RESPIRATORY: Breath sounds equal bilaterally. No accessory muscle use. GASTROINTESTINAL: Abdomen soft, non-tender, nondistended. MUSCULOSKELETAL: No cyanosis, or edema. A/P Problem List: (1) Sepsis ICD Code: A41.9 - Sepsis, unspecified organism Status: Acute (2) Abscess of axilla, right ICD Code: L02.411 - Cutaneous abscess of right axilla Status: Acute (3) S/P debridement ICD Code: Z98.890 - Other specified postprocedural states (4) Hypothyroidism ICD Code: E03.9 - Hypothyroidism, unspecified Status: Chronic Assessment and Plan In summary this is a 56-year-old female patient who is homeless who was admitted to [place] with a left axillary abscess with sepsis Sepsis secondary to left axillary abscess -On October 02 patient continued to have intermittent fevers, tachycardia, and hypotension. Infectious disease ordered pancultures. Patient was started on oral Zyvox. She was placed on scheduled Benadryl due to her rash. Urine eosinophils ordered. Creatinine and urine output to be monitored. Vancomycin discontinued. IVF resumed. -Repeat blood cultures obtained 10/02, urine culture obtained -Status post I&D with wound VAC placed on September 24, 04/15 cultures grew MRSA. -Wound VAC has been removed -Blood cultures 09/22 show no growth 5 days -General surgery following Hypothyroidism -Continue Synthroid HTN -Continue amlodipine 5 mg daily DVT prophylaxis: Bilateral SCDs Discharge Planning Anticipated patient to be discharged on Wednesday, given worsening sepsis will have to continue to follow patient clinically. Problem Qualifiers (1) Sepsis: Qualified Codes: A41.9 - Sepsis, unspecified organism Lizeth Rodgers MD Oct 03, 2017 06:59
[2017-10-03] MEDS: SODIUM CHLOR 0.9% 1000 ML INJ 1,000 ML IV SCH ×2 (08:45→20:41)
[2017-10-03] MEDS: amLODIPine BESYLATE 5 MG TAB PO SCH (09:00)
[2017-10-03] MEDS: SODIUM CHLORIDE 0.9% FLUSH 10 ML FLUSH IV FLUSH SCH ×2 (09:00→20:41)
[2017-10-03] MEDS: NICOTINE 14 MG/24 HR PATCH T-DERMAL SCH (09:00)
[2017-10-03] MEDS: DOCUSATE SODIUM 50 MG/SENNA 8.6 MG TAB PO SCH ×2 (09:00→20:28)
[2017-10-03] MEDS: REMOVE OLD PATCH T-DERMAL SCH (09:00)
[2017-10-03] MEDS: LINEZOLID 600 MG TAB PO SCH ×2 (09:33→20:28)
--- NOTE | 2017-10-03 20:07 | HHI.IDPN ---
Subjective Subjective Remarks ID Xcover for 56 y/o F with MRSA axillary abscess chart reviewed Overnight events reviewed Rash fine macular rash all over the body. No diarrhea New onset of fevers. gonzalez cultures ordered. Antibiotics Zyvox oral Lines Lines ok Past Medical History reviewed Allergies: Coded Allergies: Sulfa (Sulfonamide Antibiotics) (Verified Allergy, Severe, SHOCK, 09/22/17) bee venom protein (honey bee) (Verified Allergy, Severe, SHOCK, 09/22/17) cortisone (Verified Allergy, Severe, Psychosis, 09/22/17) penicillin G (Verified Allergy, Severe, SHOCK, 09/22/17) procaine (Verified Allergy, Severe, SOB, 09/22/17) Uncoded Allergies: ALL NARCOTICS (Allergy, Severe, AGITATION, 01/03/15) . TOMATO SEEDS (Allergy, Severe, "CAN'T BREATH", 01/03/15) . eggplant seeds (Allergy, Mild, Hives, 02/11/16) Objective . Vital Signs Date Time Temp Pulse Resp B/P (MAP) Pulse Ox O2 Delivery O2 Flow Rate FiO2 10/03/17 16:00 97.9 93 18 125/57 (79) 95 10/03/17 12:00 98/60 (73) 10/03/17 08:00 98.3 82 18 88/58 (68) 96 10/03/17 08:00 96 Room Air 10/03/17 08:00 73 10/03/17 04:00 99.0 86 17 87/55 (66) 96 10/03/17 03:55 84 10/03/17 01:13 18 10/03/17 00:04 109 10/03/17 00:00 Room Air 10/03/17 00:00 101.7 113 17 97/58 (71) 97 10/02/17 21:20 Room Air 10/03/17 10/03/17 10/04/17 14:59 22:59 06:59 Intake Total 480 ml Output Total 300 ml Balance 180 ml Intake Oral 480 ml Output Urine Total 300 ml # Voids 3 . Laboratory Tests Test 10/02/17 07:38 White Blood Count 3.0 TH/MM3 Red Blood Count 4.59 MIL/MM3 Hemoglobin 14.2 GM/DL Hematocrit 41.5 % Mean Corpuscular Volume 90.4 FL Mean Corpuscular Hemoglobin 30.9 PG Mean Corpuscular Hemoglobin Concent 34.2 % Red Cell Distribution Width 15.0 % Platelet Count 223 TH/MM3 Mean Platelet Volume 8.3 FL Neutrophils (%) (Auto) 85.5 % Lymphocytes (%) (Auto) 7.9 % Monocytes (%) (Auto) 2.7 % Eosinophils (%) (Auto) 3.7 % Basophils (%) (Auto) 0.2 % Neutrophils # (Auto) 2.6 TH/MM3 Lymphocytes # (Auto) 0.2 TH/MM3 Monocytes # (Auto) 0.1 TH/MM3 Eosinophils # (Auto) 0.1 TH/MM3 Basophils # (Auto) 0.0 TH/MM3 CBC Comment DIFF FINAL Differential Comment Laboratory Tests Test 10/02/17 07:38 10/02/17 18:05 Blood Urea Nitrogen 9 MG/DL Creatinine 0.65 MG/DL Random Glucose 83 MG/DL Total Protein 6.9 GM/DL Albumin 2.7 GM/DL Calcium Level 8.6 MG/DL Phosphorus Level 3.2 MG/DL Magnesium Level 2.0 MG/DL Alkaline Phosphatase 96 U/L Aspartate Amino Transf (AST/SGOT) 36 U/L Alanine Aminotransferase (ALT/SGPT) 42 U/L Total Bilirubin 0.2 MG/DL Sodium Level 135 MEQ/L Potassium Level 3.9 MEQ/L Chloride Level 99 MEQ/L Carbon Dioxide Level 23.9 MEQ/L Anion Gap 12 MEQ/L Estimat Glomerular Filtration Rate 95 ML/MIN Lactic Acid Level 1.3 mmol/L Microbiology Date/Time Source Procedure Growth Status 10/02/17 18:05 Blood Peripheral Aerobic Blood Culture - Preliminary NO GROWTH IN 1 DAY Resulted 10/02/17 18:05 Blood Peripheral Anaerobic Blood Culture - Preliminary NO GROWTH IN 1 DAY Resulted 10/02/17 17:55 Blood Peripheral Aerobic Blood Culture - Preliminary NO GROWTH IN 1 DAY Resulted 10/02/17 17:55 Blood Peripheral Anaerobic Blood Culture - Preliminary NO GROWTH IN 1 DAY Resulted 10/02/17 17:45 Urine Catheterized Urine Urine Culture - Preliminary NO GROWTH IN 24 HOURS. Resulted Imaging Last Impressions Chest X-Ray 09/22/17 1326 Signed Impressions: CONCLUSION: Negative examination. Soft Tissue Ultrasound 09/22/17 0000 Signed Impressions: CONCLUSION: 1. Probable lymph node as above. Physical Exam CONSTITUTIONAL/GENERAL: This is an adequately nourished patient, in no apparent distress. TUBES/LINES/DRAINS: SKIN: No jaundice, diffuse rashes STATUS LOCALIS: L axilla resolution of surrounding indration and erythema. Wound base appears clean with good vascular bed. CARDIOVASCULAR: Regular rate and rhythm without murmurs, gallops, or rubs. No JVD. Peripheral pulses symmetric. RESPIRATORY/CHEST: Symmetric, unlabored respirations. Clear to auscultation. Breath sounds equal bilaterally. No wheezes, rales, or rhonchi. GASTROINTESTINAL: Abdomen soft, non-tender, nondistended. No hepato-splenomegaly , or palpable masses. No guarding. Bowel sounds present. MUSCULOSKELETAL: Extremities without clubbing, cyanosis, or edema. No joint tenderness or effusion noted. No calf tenderness. No mottling or clubbing. NEUROLOGICAL: Awake and alert. Non focal PSYCHIATRIC: calm cooperative Assessment & Plan Remarks MRSA L axilla abscess, sp debridement, VAC placed New fever: drug rash, less likely to be new fever Leucopenia: ? vanco induced. Rash: Vanco IV induced. Recs Continue oral zyvox Famotidine oral Benadryl scheduled for a day then please change to prn. Follow Cr and UO. Follow temps. Will follow along. to resume care on 10/05/2017. Elba Guzman MD Oct 03, 2017 20:07
[2017-10-03] MEDS: FAMOTIDINE 20 MG TAB PO SCH (20:28)
[2017-10-03] MEDS: ONDANSETRON ODT 4 MG TAB PO PRN (20:40)
[2017-10-03] MEDS: CALAMINE LOTION 180 APPLIC/180 ML BTL TOPICAL PRN (20:41)
[2017-10-04] VITALS: BP 100/53; PULSE 81; RESP 18; TEMP 97.7; O2SAT 97
[2017-10-04] MEDS: oxyCODONE/ACETAMINOPHEN 10 MG/325 MG TAB PO PRN ×2 (02:17→08:48)
[2017-10-04] MEDS: diphenhydrAMINE HCL 50 MG/ML VIAL IV PUSH SCH (02:17)
[2017-10-04 04:00] VITALS: BP 112/68; PULSE 83; RESP 16; TEMP 97.7; O2SAT 98
[2017-10-04] MEDS: LEVOTHYROXINE SODIUM 88 MCG TAB PO SCH (05:21)
--- NOTE | 2017-10-04 07:29 | HHI.PR ---
Subjective Remarks Patient seen and examined this morning. No fevers. No overnight events. States she has some constipation. Some throbbing of the left axilla. Objective Vital Signs Date Time Temp Pulse Resp B/P (MAP) Pulse Ox O2 Delivery O2 Flow Rate FiO2 10/04/17 04:00 97.7 83 16 112/68 (83) 98 10/04/17 04:00 Room Air 10/04/17 03:27 18 10/04/17 00:00 Room Air 10/04/17 00:00 97.7 81 18 100/53 (69) 97 10/03/17 20:30 Room Air 10/03/17 20:00 98.2 86 18 111/64 (80) 94 10/03/17 16:00 97.9 93 18 125/57 (79) 95 10/03/17 12:00 98/60 (73) 10/03/17 08:00 98.3 82 18 88/58 (68) 96 10/03/17 08:00 96 Room Air 10/03/17 08:00 73 I/O 10/03/17 10/03/17 10/03/17 10/04/17 10/04/17 10/04/17 07:00 15:00 23:00 07:00 15:00 23:00 Intake Total 1480 ml 240 ml Output Total 300 ml 850 ml Balance 1180 ml -610 ml Intake Oral 480 ml 240 ml IV Total 1000 ml Output Urine Total 300 ml 850 ml # Voids 3 # Bowel Movements 0 Result Diagram: 10/02/17 0738 10/02/17 0738 Imaging Last Impressions Chest X-Ray 10/02/17 0000 Signed Impressions: CONCLUSION: Negative examination. Soft Tissue Ultrasound 09/22/17 0000 Signed Impressions: CONCLUSION: 1. Probable lymph node as above. Objective Remarks GENERAL: Disheveled appearing, no acute distress SKIN: Warm and dry. Left axillary region with dressing that is clean dry and intact, dressing removed, scant drainage site but overall looks improved, decreased surround erythema. HEAD: Normocephalic. EYES: No scleral icterus. No injection or drainage. NECK: Supple, trachea midline. No JVD or lymphadenopathy. CARDIOVASCULAR: Regular rate and rhythm without murmurs, gallops, or rubs. RESPIRATORY: Breath sounds equal bilaterally. No accessory muscle use. GASTROINTESTINAL: Abdomen soft, non-tender, nondistended. MUSCULOSKELETAL: No cyanosis, or edema. A/P Problem List: (1) Sepsis ICD Code: A41.9 - Sepsis, unspecified organism Status: Acute (2) Abscess of axilla, right ICD Code: L02.411 - Cutaneous abscess of right axilla Status: Acute (3) S/P debridement ICD Code: Z98.890 - Other specified postprocedural states (4) Hypothyroidism ICD Code: E03.9 - Hypothyroidism, unspecified Status: Chronic Assessment and Plan In summary this is a 56-year-old female patient who is homeless who was admitted to [place] with a left axillary abscess with sepsis. Patient underwent an I&D by general surgery. She was placed on vancomycin. Patient developed worsening sepsis with fever and tachycardia. Repeat blood cultures were obtained. She also developed a diffuse macular papular rash. Vancomycin was discontinued. Infectious disease then placed the patient to p.o. Zyvox. Sepsis secondary to left axillary abscess -Status post I&D with wound VAC placed on September 24, abscess culture on September 23 and both grew MRSA. Blood cultures obtained on the and on the have been negative to date. -Wound VAC has been removed -General surgery and infectious disease following -Currently on p.o. Zyvox (10/02 start date) Hypothyroidism -Continue Synthroid HTN -Continue amlodipine 5 mg daily DVT prophylaxis: Bilateral SCDs lactulose x1 for constipation Discharge Planning D/C pending clearance by ID. Problem Qualifiers (1) Sepsis: Qualified Codes: A41.9 - Sepsis, unspecified organism Lizeth Rodgers MD Oct 04, 2017 07:29
[2017-10-04 08:03] VITALS: BP 137/77; PULSE 81; RESP 16; TEMP 97.8; O2SAT 94
[2017-10-04] MEDS: SODIUM CHLORIDE 0.9% FLUSH 10 ML FLUSH IV FLUSH SCH ×2 (08:43→21:23)
[2017-10-04] MEDS: DOCUSATE SODIUM 50 MG/SENNA 8.6 MG TAB PO SCH ×2 (08:47→21:21)
[2017-10-04] MEDS: amLODIPine BESYLATE 5 MG TAB PO SCH (08:47)
[2017-10-04] MEDS: LINEZOLID 600 MG TAB PO SCH ×2 (08:47→21:21)
[2017-10-04] MEDS: FAMOTIDINE 20 MG TAB PO SCH ×2 (08:47→21:21)
[2017-10-04] MEDS: NICOTINE 14 MG/24 HR PATCH T-DERMAL SCH (08:49)
[2017-10-04] MEDS: SODIUM CHLOR 0.9% 1000 ML INJ 1,000 ML IV SCH ×2 (08:53→21:14)
[2017-10-04] MEDS: REMOVE OLD PATCH T-DERMAL SCH (09:00)
[2017-10-04 11:43] LABS: AUTOMATED NEUTROPHIL # 1.9 TH/MM3 (1.8-7.7); BASOPHIL % 0.7 % (0.0-2.0); EOSINOPHIL # 0.2 TH/MM3 (0-0.4); EOSINOPHIL % 7.6 % (0.0-4.0); HEMOGLOBIN 13.4 GM/DL (11.6-15.3); LYMPH % 24.6 % (9.0-44.0); LYMPHOCYTE # 0.7 TH/MM3 (1.0-4.8); MEAN CELL VOLUME 90.6 FL (80.0-100.0); MEAN CORPUSCULAR HEMOGLOBIN 30.4 PG (27.0-34.0); MEAN CORPUSCULAR HGB CONC 33.5 % (32.0-36.0); MEAN PLATELET VOLUME 8.9 FL (7.0-11.0); MONO % 3.4 % (0.0-8.0); MONOCYTE # 0.1 TH/MM3 (0-0.9); NEUT % 63.7 % (16.0-70.0); PLATELET COUNT 177 TH/MM3 (150-450); RED BLOOD COUNT 4.42 MIL/MM3 (4.00-5.30); RED CELL DISTRIBUTION WIDTH 15.2 % (11.6-17.2)
[2017-10-04 12:03] VITALS: BP 146/73; PULSE 82; RESP 17; TEMP 97.5; O2SAT 98
[2017-10-04 12:51] LABS: BANDS 16 % (0-6); LYMPHOCYTES 28 % (9-44); MONOCYTES 2 % (0-8); POLYS (SEG NEUTROPHILS) 50 % (16-70)
[2017-10-04 13:19] LABS: CALCIUM 7.8 MG/DL (8.5-10.1); CREATININE 0.57 MG/DL (0.50-1.00)
[2017-10-04 16:03] VITALS: BP 139/76; PULSE 83; RESP 17; TEMP 98.1; O2SAT 98
[2017-10-04 20:02] VITALS: BP 154/87; PULSE 85; RESP 17; TEMP 98.4; O2SAT 98
[2017-10-04] MEDS: CALAMINE LOTION 180 APPLIC/180 ML BTL TOPICAL PRN (21:20)
[2017-10-04] MEDS: ACETAMINOPHEN 325 MG TAB PO PRN (21:20)
[2017-10-04] MEDS: diphenhydrAMINE HCL 50 MG/ML VIAL IV PUSH PRN (21:28)
[2017-10-05 00:03] VITALS: BP 138/83; PULSE 76; RESP 17; TEMP 97.8; O2SAT 98
[2017-10-05] MEDS: oxyCODONE/ACETAMINOPHEN 10 MG/325 MG TAB PO PRN ×3 (01:04→21:42)
[2017-10-05 04:02] VITALS: BP 150/88; PULSE 78; RESP 17; TEMP 97.5; O2SAT 97
[2017-10-05] MEDS: LEVOTHYROXINE SODIUM 88 MCG TAB PO SCH (06:47)
[2017-10-05 08:03] VITALS: BP 123/59; PULSE 70; RESP 17; TEMP 97.6; O2SAT 96
[2017-10-05] MEDS: SODIUM CHLOR 0.9% 1000 ML INJ 1,000 ML IV SCH ×2 (08:13→21:40)
[2017-10-05] MEDS: FAMOTIDINE 20 MG TAB PO SCH ×2 (08:13→21:41)
[2017-10-05] MEDS: amLODIPine BESYLATE 5 MG TAB PO SCH (08:13)
[2017-10-05] MEDS: LINEZOLID 600 MG TAB PO SCH (08:13)
[2017-10-05] MEDS: DOCUSATE SODIUM 50 MG/SENNA 8.6 MG TAB PO SCH ×2 (08:13→21:00)
[2017-10-05] MEDS: NICOTINE 14 MG/24 HR PATCH T-DERMAL SCH (08:14)
[2017-10-05 08:46] LABS: AUTOMATED NEUTROPHIL # 1.7 TH/MM3 (1.8-7.7); BASOPHIL % 0.2 % (0.0-2.0); EOSINOPHIL # 0.1 TH/MM3 (0-0.4); EOSINOPHIL % 5.3 % (0.0-4.0); HEMOGLOBIN 12.3 GM/DL (11.6-15.3); LYMPH % 29.2 % (9.0-44.0); LYMPHOCYTE # 0.8 TH/MM3 (1.0-4.8); MEAN CELL VOLUME 89.7 FL (80.0-100.0); MEAN CORPUSCULAR HEMOGLOBIN 30.5 PG (27.0-34.0); MEAN PLATELET VOLUME 8.3 FL (7.0-11.0); MONO % 6.5 % (0.0-8.0); MONOCYTE # 0.2 TH/MM3 (0-0.9); NEUT % 58.8 % (16.0-70.0); PLATELET COUNT 186 TH/MM3 (150-450); RED BLOOD COUNT 4.02 MIL/MM3 (4.00-5.30); WHITE BLOOD COUNT 2.8 TH/MM3 (4.0-11.0)
[2017-10-05] MEDS: SODIUM CHLORIDE 0.9% FLUSH 10 ML FLUSH IV FLUSH SCH ×2 (09:00→21:00)
[2017-10-05 09:12] LABS: BICARBONATE 25.7 MEQ/L (21.0-32.0); CREATININE 0.58 MG/DL (0.50-1.00)
[2017-10-05 12:03] VITALS: BP_SYST 140; BP_SYST 158; BP_DIAS 87; BP_DIAS 88; PULSE 76; RESP 17; TEMP 97.9; O2SAT 98
--- NOTE | 2017-10-05 12:55 | HHI.PR ---
Subjective Remarks Patient complaining of a headache and also states that she at times experiences dizziness when she is getting up quickly out of bed. Denies any chest pain, shortness of breath, nausea or vomiting Objective Vitals Vital Signs Date Time Temp Pulse Resp B/P (MAP) Pulse Ox O2 Delivery O2 Flow Rate FiO2 10/05/17 12:03 97.9 76 17 158/87 (110) 98 10/05/17 08:03 97.6 70 17 123/59 (80) 96 10/05/17 04:02 97.5 78 17 150/88 (108) 97 10/05/17 00:03 97.8 76 17 138/83 (101) 98 10/04/17 20:02 98.4 85 17 154/87 (109) 98 10/04/17 16:03 98.1 83 17 139/76 (97) 98 I/O 10/04/17 10/04/17 10/04/17 10/05/17 10/05/17 10/05/17 07:00 15:00 23:00 07:00 15:00 23:00 Intake Total 240 ml 960 ml Output Total 850 ml 1002 ml Balance -610 ml -42 ml Intake Oral 240 ml 960 ml Output Urine Total 850 ml 1000 ml Stool Total 2 ml # Bowel Movements 0 1 Result Diagram: 10/05/17 0815 10/05/17 0815 Imaging Last Impressions Chest X-Ray 10/02/17 0000 Signed Impressions: CONCLUSION: Negative examination. Soft Tissue Ultrasound 09/22/17 0000 Signed Impressions: CONCLUSION: 1. Probable lymph node as above. Objective Remarks GENERAL: Disheveled appearing, no acute distress SKIN: Warm and dry. Left axillary region with dressing that is clean dry and intact CARDIOVASCULAR: Regular rate and rhythm without murmurs RESPIRATORY: Breath sounds equal bilaterally. No accessory muscle use. GASTROINTESTINAL: Abdomen soft, non-tender, nondistended. MUSCULOSKELETAL: Ambulating in the room Procedures 09/24 Sharp debridement irrigation incision drainage of left axillary abscess 3 x 5 cm with application of VAC dressing appliance A/P Problem List: (1) Sepsis ICD Code: A41.9 - Sepsis, unspecified organism Status: Acute (2) Cellulitis of axillary region ICD Code: L03.119 - Cellulitis of unspecified part of limb Status: Acute (3) Hypothyroidism ICD Code: E03.9 - Hypothyroidism, unspecified Status: Chronic Assessment and Plan In summary this is a 56-year-old female patient who is homeless who was admitted to [place] with a left axillary abscess with sepsis. Patient underwent an I&D by general surgery. She was placed on vancomycin. Patient developed worsening sepsis with fever and tachycardia. Repeat blood cultures were obtained. She also developed a diffuse macular papular rash. Vancomycin was discontinued. Infectious disease then placed the patient to p.o. Zyvox. Sepsis secondary to left axillary abscess -Status post I&D with wound VAC placed on September 24, abscess culture on September 23 and both grew MRSA. Blood cultures obtained on the and on the have been negative to date. -Wound VAC has been removed -General surgery and infectious disease following -Currently on p.o. Zyvox (10/02 start date) -We will continue the IV Benadryl for now as she continues to complain of itching all over. Will transition to as needed in the morning. I will give her a one-time dose of IV Solu-Medrol and see if that helps. Hypothyroidism -Continue Synthroid HTN -Continue amlodipine 5 mg daily DVT prophylaxis: Bilateral SCDs lactulose x1 for constipation Discharge Planning D/C pending clearance by ID. Problem Qualifiers (1) Sepsis: Qualified Codes: A41.9 - Sepsis, unspecified organism Loretta Grant MD Oct 05, 2017 12:55
[2017-10-05] MEDS ORDERED: methylPREDNISolone SOD SUCC 40 MG/1 ML VIAL IV PUSH ONE (13:00)
[2017-10-05] MEDS ORDERED: ACETAMIN 325 MG/BUTALBITAL 50 MG/CAFFEINE 40 MG TAB PO PRN (13:00)
[2017-10-05] MEDS: ACETAMINOPHEN 325 MG TAB PO PRN (14:40)
[2017-10-05 16:03] VITALS: BP 144/77; PULSE 83; RESP 17; TEMP 97.8; O2SAT 98
--- NOTE | 2017-10-05 17:16 | HHI.IDPN ---
Subjective Subjective Remarks rash resolved + diarrhea, 2 large liquid BMs WBC down to 2.8 Antibiotics Zyvox oral Lines Lines ok Past Medical History reviewed Allergies: Coded Allergies: Sulfa (Sulfonamide Antibiotics) (Verified Allergy, Severe, SHOCK, 09/22/17) bee venom protein (honey bee) (Verified Allergy, Severe, SHOCK, 09/22/17) cortisone (Verified Allergy, Severe, Psychosis, 09/22/17) penicillin G (Verified Allergy, Severe, SHOCK, 09/22/17) procaine (Verified Allergy, Severe, SOB, 09/22/17) Uncoded Allergies: ALL NARCOTICS (Allergy, Severe, AGITATION, 01/03/15) . TOMATO SEEDS (Allergy, Severe, "CAN'T BREATH", 01/03/15) . eggplant seeds (Allergy, Mild, Hives, 02/11/16) Objective . Vital Signs Date Time Temp Pulse Resp B/P (MAP) Pulse Ox O2 Delivery O2 Flow Rate FiO2 10/05/17 16:03 97.8 83 17 144/77 (99) 98 10/05/17 12:03 97.9 76 17 158/87 (110) 98 10/05/17 08:30 Room Air 10/05/17 08:03 97.6 70 17 123/59 (80) 96 10/05/17 04:02 97.5 78 17 150/88 (108) 97 10/05/17 00:03 97.8 76 17 138/83 (101) 98 10/04/17 20:02 98.4 85 17 154/87 (109) 98 . Laboratory Tests Test 10/04/17 10:56 10/05/17 08:15 White Blood Count 3.0 TH/MM3 2.8 TH/MM3 Red Blood Count 4.42 MIL/MM3 4.02 MIL/MM3 Hemoglobin 13.4 GM/DL 12.3 GM/DL Hematocrit 40.0 % 36.0 % Mean Corpuscular Volume 90.6 FL 89.7 FL Mean Corpuscular Hemoglobin 30.4 PG 30.5 PG Mean Corpuscular Hemoglobin Concent 33.5 % 34.0 % Red Cell Distribution Width 15.2 % 15.0 % Platelet Count 177 TH/MM3 186 TH/MM3 Mean Platelet Volume 8.9 FL 8.3 FL Neutrophils (%) (Auto) 63.7 % 58.8 % Lymphocytes (%) (Auto) 24.6 % 29.2 % Monocytes (%) (Auto) 3.4 % 6.5 % Eosinophils (%) (Auto) 7.6 % 5.3 % Basophils (%) (Auto) 0.7 % 0.2 % Neutrophils # (Auto) 1.9 TH/MM3 1.7 TH/MM3 Lymphocytes # (Auto) 0.7 TH/MM3 0.8 TH/MM3 Monocytes # (Auto) 0.1 TH/MM3 0.2 TH/MM3 Eosinophils # (Auto) 0.2 TH/MM3 0.1 TH/MM3 Basophils # (Auto) 0.0 TH/MM3 0.0 TH/MM3 CBC Comment AUTO DIFF DIFF FINAL Differential Total Cells Counted 100 Neutrophils % (Manual) 50 % Band Neutrophils % 16 % Lymphocytes % 28 % Monocytes % 2 % Eosinophils % 4 % Neutrophils # (Manual) 2.0 TH/MM3 Differential Comment FINAL DIFF MANUAL Platelet Estimate NORMAL Platelet Morphology Comment NORMAL Red Cell Morphology Comment NORMAL Laboratory Tests Test 10/04/17 10:56 10/05/17 08:15 Blood Urea Nitrogen 6 MG/DL 6 MG/DL Creatinine 0.57 MG/DL 0.58 MG/DL Random Glucose 77 MG/DL 81 MG/DL Calcium Level 7.8 MG/DL 8.0 MG/DL Sodium Level 139 MEQ/L 139 MEQ/L Potassium Level 3.9 MEQ/L 3.8 MEQ/L Chloride Level 106 MEQ/L 105 MEQ/L Carbon Dioxide Level 26.0 MEQ/L 25.7 MEQ/L Anion Gap 7 MEQ/L 8 MEQ/L Estimat Glomerular Filtration Rate 110 ML/MIN 108 ML/MIN Microbiology Date/Time Source Procedure Growth Status 10/02/17 18:05 Blood Peripheral Aerobic Blood Culture - Preliminary NO GROWTH IN 3 DAYS Resulted 10/02/17 18:05 Blood Peripheral Anaerobic Blood Culture - Preliminary NO GROWTH IN 3 DAYS Resulted 10/02/17 17:55 Blood Peripheral Aerobic Blood Culture - Preliminary NO GROWTH IN 3 DAYS Resulted 10/02/17 17:55 Blood Peripheral Anaerobic Blood Culture - Preliminary NO GROWTH IN 3 DAYS Resulted 10/02/17 17:45 Urine Catheterized Urine Urine Culture - Final NO GROWTH IN 48 HOURS. Complete Imaging Last Impressions Chest X-Ray 10/02/17 0000 Signed Impressions: CONCLUSION: Negative examination. Soft Tissue Ultrasound 09/22/17 0000 Signed Impressions: CONCLUSION: 1. Probable lymph node as above. Physical Exam CONSTITUTIONAL/GENERAL: This is an adequately nourished patient, in no apparent distress. TUBES/LINES/DRAINS: SKIN: No jaundice, no rash STATUS LOCALIS: L axilla dressing in place CARDIOVASCULAR: Regular rate and rhythm without murmurs, gallops, or rubs. No JVD. Peripheral pulses symmetric. RESPIRATORY/CHEST: Symmetric, unlabored respirations. Clear to auscultation. Breath sounds equal bilaterally. No wheezes, rales, or rhonchi. GASTROINTESTINAL: Abdomen soft, non-tender, nondistended. No hepato-splenomegaly , or palpable masses. No guarding. Bowel sounds present. MUSCULOSKELETAL: Extremities without clubbing, cyanosis, or edema. No joint tenderness or effusion noted. No calf tenderness. No mottling or clubbing. NEUROLOGICAL: Awake and alert. Non focal PSYCHIATRIC: calm cooperative Assessment & Plan Remarks MRSA L axilla abscess, sp debridement, VAC placed New fever: drug rash, less likely to be new fever Leucopenia: - worse Rash: Vanco IV induced. DIarrhea, abx associate Leukopenia Recs dcl zyvox start doxycyline chk C.diff fu creatinine fu WBC Sylvie Childress MD Oct 05, 2017 17:16
[2017-10-05 20:02] VITALS: BP 142/89; PULSE 82; RESP 17; TEMP 98; O2SAT 97
[2017-10-05] MEDS: DOXYCYCLINE HYCLATE 100 MG TAB PO SCH (21:41)
[2017-10-06 00:02] VITALS: BP 123/68; PULSE 72; RESP 17; TEMP 97.1; O2SAT 97
[2017-10-06 04:02] VITALS: BP 153/98; PULSE 77; RESP 17; TEMP 97.4; O2SAT 98
[2017-10-06] MEDS: LEVOTHYROXINE SODIUM 88 MCG TAB PO SCH (06:35)
[2017-10-06 08:10] VITALS: BP 141/69; PULSE 74; RESP 18; TEMP 98.5; O2SAT 97
[2017-10-06] MEDS: SODIUM CHLOR 0.9% 1000 ML INJ 1,000 ML IV SCH ×2 (08:15→18:06)
[2017-10-06] MEDS: DOCUSATE SODIUM 50 MG/SENNA 8.6 MG TAB PO SCH ×2 (09:17→21:51)
[2017-10-06] MEDS: DOXYCYCLINE HYCLATE 100 MG TAB PO SCH ×2 (09:17→21:51)
[2017-10-06] MEDS: amLODIPine BESYLATE 5 MG TAB PO SCH (09:17)
[2017-10-06] MEDS: FAMOTIDINE 20 MG TAB PO SCH ×2 (09:17→21:51)
[2017-10-06] MEDS: NICOTINE 14 MG/24 HR PATCH T-DERMAL SCH (09:18)
[2017-10-06] MEDS: SODIUM CHLORIDE 0.9% FLUSH 10 ML FLUSH IV FLUSH SCH ×2 (09:19→21:51)
[2017-10-06] MEDS ORDERED: AMLO5 PO (09:38)
--- NOTE | 2017-10-06 09:39 | HHI.DCPOC ---
Discharge Care Plan Diagnosis: (1) Sepsis (2) Abscess of axilla, right (3) S/P debridement (4) Hypothyroidism (5) Hypertension Goals to Promote Your Health * To prevent worsening of your condition and complications * To maintain your health at the optimal level Directions to Meet Your Goals Take your medications as prescribed Follow your dietary instruction Follow activity as directed Keep your appointments as scheduled Take your immunizations and boosters as scheduled If your symptoms worsen call your PCP, if no PCP go to Urgent Care Center or Emergency Room Smoking is Dangerous to Your Health. Avoid second hand smoke Call the 24-hour hour crisis hotline for domestic abuse at Suzy Briseno MD Oct 06, 2017 09:39
[2017-10-06 09:54] LABS: CALCIUM 8.4 MG/DL (8.5-10.1); CREATININE 0.51 MG/DL (0.50-1.00)
[2017-10-06 09:55] LABS: BICARBONATE 23.2 MEQ/L (21.0-32.0)
[2017-10-06 10:01] LABS: AUTOMATED NEUTROPHIL # 2.1 TH/MM3 (1.8-7.7); BASOPHIL % 0.5 % (0.0-2.0); EOSINOPHIL % 0.7 % (0.0-4.0); HEMATOCRIT 38.3 % (35.0-46.0); HEMOGLOBIN 12.9 GM/DL (11.6-15.3); LYMPH % 35.8 % (9.0-44.0); LYMPHOCYTE # 1.4 TH/MM3 (1.0-4.8); MEAN CELL VOLUME 89.3 FL (80.0-100.0); MEAN CORPUSCULAR HGB CONC 33.6 % (32.0-36.0); MEAN PLATELET VOLUME 8.5 FL (7.0-11.0); MONO % 7.9 % (0.0-8.0); MONOCYTE # 0.3 TH/MM3 (0-0.9); NEUT % 55.1 % (16.0-70.0); PLATELET COUNT 260 TH/MM3 (150-450); RED BLOOD COUNT 4.28 MIL/MM3 (4.00-5.30); RED CELL DISTRIBUTION WIDTH 14.8 % (11.6-17.2); WHITE BLOOD COUNT 3.8 TH/MM3 (4.0-11.0)
--- NOTE | 2017-10-06 11:59 | HHI.PR ---
Subjective Remarks Patient reports she is feeling okay today. Inquired about being discharged today. No fevers or chills. Objective Vitals Vital Signs Date Time Temp Pulse Resp B/P (MAP) Pulse Ox O2 Delivery O2 Flow Rate FiO2 10/06/17 08:10 98.5 74 18 141/69 (93) 97 10/06/17 04:02 97.4 77 17 153/98 (116) 98 10/06/17 00:02 97.1 72 17 123/68 (86) 97 10/05/17 20:02 98.0 82 17 142/89 (106) 97 10/05/17 20:00 Room Air 10/05/17 16:03 97.8 83 17 144/77 (99) 98 10/05/17 12:03 97.9 76 17 158/87 (110) 98 147/89 (108) 140/88 (105) I/O 10/05/17 10/05/17 10/05/17 10/06/17 10/06/17 10/06/17 07:00 15:00 23:00 07:00 15:00 23:00 Intake Total 720 ml 2766 ml Output Total 600 ml Balance 120 ml 2766 ml Intake Oral 720 ml IV Total 2766 ml Output Urine Total 600 ml # Bowel Movements 0 Result Diagram: 10/06/17 0810 10/06/17 0810 Objective Remarks GENERAL: Disheveled appearing, no acute distress SKIN: Warm and dry. Left axillary region with dressing that is clean dry and intact CARDIOVASCULAR: Regular rate and rhythm without murmurs RESPIRATORY: Breath sounds equal bilaterally. No accessory muscle use. GASTROINTESTINAL: Abdomen soft, non-tender, nondistended. MUSCULOSKELETAL: Ambulating in the room Procedures 09/24 Sharp debridement irrigation incision drainage of left axillary abscess 3 x 5 cm with application of VAC dressing appliance A/P Problem List: (1) Sepsis ICD Code: A41.9 - Sepsis, unspecified organism Status: Acute (2) Cellulitis of axillary region ICD Code: L03.119 - Cellulitis of unspecified part of limb Status: Acute (3) Hypothyroidism ICD Code: E03.9 - Hypothyroidism, unspecified Status: Chronic Assessment and Plan 56-year-old female patient who is homeless who was admitted to [place] with a left axillary abscess with sepsis. Patient underwent an I&D by general surgery. She was placed on vancomycin. Patient developed worsening sepsis with fever and tachycardia. Repeat blood cultures were obtained. She also developed a diffuse macular papular rash. Vancomycin was discontinued. Infectious disease then placed the patient to p.o. Zyvox. This has been changed to doxycycline. Sepsis secondary to left axillary abscess -Status post I&D with wound VAC placed on September 24, abscess culture on September 23 and both grew MRSA. Blood cultures obtained on the and on the have been negative to date. -Wound VAC has been removed -General surgery and infectious disease following -Currently on p.o. doxycycline. Discussed with infectious disease. Patient will be reevaluated today. Further antibiotics recommendations per infectious disease. Hypothyroidism -Continue Synthroid HTN -Continue amlodipine 5 mg daily DVT prophylaxis: Bilateral SCDs Discharge Planning Discussed with ID, Dr. Childress. Patient will be reevaluated today. Possible discharge later today pending ID recommendations. Problem Qualifiers (1) Sepsis: Qualified Codes: A41.9 - Sepsis, unspecified organism Suzy Briseno MD Oct 06, 2017 11:59
[2017-10-06 12:00] VITALS: BP 131/70; PULSE 84; RESP 18; TEMP 98.6; O2SAT 95
[2017-10-06] MEDS: oxyCODONE/ACETAMINOPHEN 10 MG/325 MG TAB PO PRN ×2 (14:22→21:56)
[2017-10-06 15:50] VITALS: BP 132/70; PULSE 79; RESP 18; TEMP 98.6; O2SAT 97
[2017-10-06] MEDS: ONDANSETRON ODT 4 MG TAB PO PRN (18:22)
[2017-10-06 21:23] VITALS: BP 125/64; PULSE 78; RESP 16; TEMP 97.8; O2SAT 96
[2017-10-07] VITALS: BP 124/62; PULSE 79; RESP 16; TEMP 97.6; O2SAT 97
[2017-10-07 03:26] VITALS: BP 150/83; PULSE 78; RESP 16; TEMP 97.8; O2SAT 96
[2017-10-07] MEDS: LEVOTHYROXINE SODIUM 88 MCG TAB PO SCH (06:04)
[2017-10-07] MEDS: oxyCODONE/ACETAMINOPHEN 10 MG/325 MG TAB PO PRN ×2 (06:04→14:35)
[2017-10-07 06:25] LABS: HEMATOCRIT 38.5 % (35.0-46.0); HEMOGLOBIN 13.1 GM/DL (11.6-15.3); MEAN CELL VOLUME 89.2 FL (80.0-100.0); MEAN CORPUSCULAR HEMOGLOBIN 30.3 PG (27.0-34.0); MEAN PLATELET VOLUME 8.2 FL (7.0-11.0); PLATELET COUNT 281 TH/MM3 (150-450); RED BLOOD COUNT 4.32 MIL/MM3 (4.00-5.30); RED CELL DISTRIBUTION WIDTH 15.1 % (11.6-17.2); WHITE BLOOD COUNT 3.3 TH/MM3 (4.0-11.0)
[2017-10-07 08:08] VITALS: BP 137/80; PULSE 70; RESP 18; TEMP 97.7; O2SAT 96
--- NOTE | 2017-10-07 08:30 | HHI.DS ---
cc: [facility] Discharge Summary Admission Date Sep 22, 2017 at 17:45 Discharge Date: Oct 07, 2017 Admitting Diagnosis Sepsis; L axilla cellulitis (1) Sepsis ICD Code: A41.9 - Sepsis, unspecified organism Status: Acute (2) Cellulitis of axillary region ICD Code: L03.119 - Cellulitis of unspecified part of limb Status: Acute (3) Hypothyroidism ICD Code: E03.9 - Hypothyroidism, unspecified Status: Chronic Procedures 09/24 Sharp debridement irrigation incision drainage of left axillary abscess 3 x 5 cm with application of VAC dressing appliance Brief History - From Admission HPI from the admitting physician This is a 56-year-old female with past medical history of hypothyroidism who presents to [facility] for the second time complaining of left axillary pain, erythema, warmth. The patient states that this past Wednesday she was bed while she was sleeping by spider. She was seen in the hospital 2 days ago on September 20, 2017 and was discharged with oral antibiotics. The patient states that due to lack of economic resources she was not able to buy the medication. The patient described the pain as constant, throbbing, nonradiating associated with fevers and chills which has been progressively been getting worse. The patient otherwise denies any chest pain, shortness of breath, nausea, vomiting, abdominal pain, diarrhea. CBC/BMP: 10/07/17 0433 10/06/17 0810 Significant Findings Laboratory Tests Test 10/04/17 10:56 10/05/17 08:15 10/06/17 08:10 10/07/17 04:33 White Blood Count 3.0 TH/MM3 (4.0-11.0) 2.8 TH/MM3 (4.0-11.0) 3.8 TH/MM3 (4.0-11.0) 3.3 TH/MM3 (4.0-11.0) Eosinophils (%) (Auto) 7.6 % (0.0-4.0) 5.3 % (0.0-4.0) Lymphocytes # (Auto) 0.7 TH/MM3 (1.0-4.8) 0.8 TH/MM3 (1.0-4.8) Band Neutrophils % 16 % (0-6) Blood Urea Nitrogen 6 MG/DL (7-18) 6 MG/DL (7-18) Calcium Level 7.8 MG/DL (8.5-10.1) 8.0 MG/DL (8.5-10.1) 8.4 MG/DL (8.5-10.1) Neutrophils # (Auto) 1.7 TH/MM3 (1.8-7.7) Imaging Last Impressions Chest X-Ray 10/02/17 0000 Signed Impressions: CONCLUSION: Negative examination. Soft Tissue Ultrasound 09/22/17 0000 Signed Impressions: CONCLUSION: 1. Probable lymph node as above. PE at Discharge GENERAL: No acute distress SKIN: Warm and dry. Left axillary region with dressing that is clean dry and intact. Wound is healing. CARDIOVASCULAR: Regular rate and rhythm without murmurs RESPIRATORY: Breath sounds equal bilaterally. No accessory muscle use. GASTROINTESTINAL: Abdomen soft, non-tender, nondistended. MUSCULOSKELETAL: Ambulating in the room Pt update on day of discharge Patient reports she is feeling okay today. No fevers. We discussed discharge planning at length. Hospital Course 56-year-old female patient who is homeless who was admitted to [place] with a left axillary abscess with sepsis. Patient underwent an I&D by general surgery. She was placed on vancomycin. Patient developed worsening sepsis with fever and tachycardia. Repeat blood cultures were obtained. She also developed a diffuse macular papular rash. Vancomycin was discontinued. Infectious disease then placed the patient to p.o. Zyvox. This has been changed to doxycycline. The patient is discharged on doxycycline for 3 more days. She is advised to avoid sun exposure while on doxycycline. Discussed with case management. They will assist the patient in obtaining a motel while she is on antibiotics. Hypothyroidism -Continue Synthroid HTN -Continue amlodipine 5 mg daily Pt Condition on Discharge: Good Discharge Disposition: Discharge Home Discharge Time: <= 30 minutes Discharge Instructions DIET: Follow Instructions for: Heart Healthy Diet Activities you can perform: Regular-No Restrictions Follow up Referrals: PCP Follow-up - 1 Week with [facility] New Medications: Amlodipine (Norvasc) 5 Mg Tab 5 MG PO DAILY, #30 TAB Doxycycline Hyclate (Doxycycline Hyclate) 100 Mg Tab 100 MG PO Q12HR, #6 TAB Continued Medications: Ibuprofen (Ibuprofen) 800 Mg Tab 800 MG PO Q6HR PRN for PAIN, #30 TAB 0 Refills Levothyroxine (Levothyroxine) 88 Mcg Tab 88 MCG PO DAILY for Thyroid, #30 TAB 3 Refills (This prescription has been renewed) Suzy Briseno MD Oct 07, 2017 08:30
[2017-10-07] MEDS: ACETAMINOPHEN 325 MG TAB PO PRN (09:49)
[2017-10-07] MEDS: diphenhydrAMINE HCL 50 MG/ML VIAL IV PUSH PRN (09:49)
[2017-10-07] MEDS: ONDANSETRON ODT 4 MG TAB PO PRN (09:49)
[2017-10-07] MEDS: amLODIPine BESYLATE 5 MG TAB PO SCH (09:49)
[2017-10-07] MEDS: FAMOTIDINE 20 MG TAB PO SCH (09:49)
[2017-10-07] MEDS: DOXYCYCLINE HYCLATE 100 MG TAB PO SCH (09:49)
[2017-10-07] MEDS: DOCUSATE SODIUM 50 MG/SENNA 8.6 MG TAB PO SCH (09:49)
[2017-10-07] MEDS: SODIUM CHLORIDE 0.9% FLUSH 10 ML FLUSH IV FLUSH SCH (09:50)
[2017-10-07] MEDS: NICOTINE 14 MG/24 HR PATCH T-DERMAL SCH (09:50)
[2017-10-07] MEDS ORDERED: LEVO88TA2 PO (10:30)
[2017-10-07] MEDS ORDERED: AMLO5 PO (11:47)
[2017-10-07 12:10] VITALS: BP 142/84; PULSE 83; RESP 18; TEMP 98.3; O2SAT 97
--- NOTE | 2017-10-07 13:35 | HHI.IDPN ---
Subjective Subjective Remarks co mildly itching rash no diarrhea, WBC up to 3.8 then down to 3.3again Antibiotics doxycylyne Lines Lines ok Past Medical History reviewed Allergies: Coded Allergies: Sulfa (Sulfonamide Antibiotics) (Verified Allergy, Severe, SHOCK, 09/22/17) bee venom protein (honey bee) (Verified Allergy, Severe, SHOCK, 09/22/17) cortisone (Verified Allergy, Severe, Psychosis, 09/22/17) penicillin G (Verified Allergy, Severe, SHOCK, 09/22/17) procaine (Verified Allergy, Severe, SOB, 09/22/17) Uncoded Allergies: ALL NARCOTICS (Allergy, Severe, AGITATION, 01/03/15) . TOMATO SEEDS (Allergy, Severe, "CAN'T BREATH", 01/03/15) . eggplant seeds (Allergy, Mild, Hives, 02/11/16) Objective . Vital Signs Date Time Temp Pulse Resp B/P (MAP) Pulse Ox O2 Delivery O2 Flow Rate FiO2 10/07/17 08:08 97.7 70 18 137/80 (99) 96 10/07/17 08:00 Room Air 10/07/17 03:26 97.8 78 16 150/83 (105) 96 10/07/17 00:00 97.6 79 16 124/62 (82) 97 10/06/17 21:23 97.8 78 16 125/64 (84) 96 10/06/17 20:00 Room Air 10/06/17 15:50 98.6 79 18 132/70 (90) 97 . Laboratory Tests Test 10/06/17 08:10 10/07/17 04:33 White Blood Count 3.8 TH/MM3 3.3 TH/MM3 Red Blood Count 4.28 MIL/MM3 4.32 MIL/MM3 Hemoglobin 12.9 GM/DL 13.1 GM/DL Hematocrit 38.3 % 38.5 % Mean Corpuscular Volume 89.3 FL 89.2 FL Mean Corpuscular Hemoglobin 30.0 PG 30.3 PG Mean Corpuscular Hemoglobin Concent 33.6 % 34.0 % Red Cell Distribution Width 14.8 % 15.1 % Platelet Count 260 TH/MM3 281 TH/MM3 Mean Platelet Volume 8.5 FL 8.2 FL Neutrophils (%) (Auto) 55.1 % Lymphocytes (%) (Auto) 35.8 % Monocytes (%) (Auto) 7.9 % Eosinophils (%) (Auto) 0.7 % Basophils (%) (Auto) 0.5 % Neutrophils # (Auto) 2.1 TH/MM3 Lymphocytes # (Auto) 1.4 TH/MM3 Monocytes # (Auto) 0.3 TH/MM3 Eosinophils # (Auto) 0.0 TH/MM3 Basophils # (Auto) 0.0 TH/MM3 CBC Comment DIFF FINAL Differential Comment Laboratory Tests Test 10/06/17 08:10 Blood Urea Nitrogen 9 MG/DL Creatinine 0.51 MG/DL Random Glucose 77 MG/DL Calcium Level 8.4 MG/DL Sodium Level 137 MEQ/L Potassium Level 3.9 MEQ/L Chloride Level 104 MEQ/L Carbon Dioxide Level 23.2 MEQ/L Anion Gap 10 MEQ/L Estimat Glomerular Filtration Rate 125 ML/MIN Imaging Last Impressions Chest X-Ray 10/02/17 0000 Signed Impressions: CONCLUSION: Negative examination. Soft Tissue Ultrasound 09/22/17 0000 Signed Impressions: CONCLUSION: 1. Probable lymph node as above. Physical Exam CONSTITUTIONAL/GENERAL: This is an adequately nourished patient, in no apparent distress. TUBES/LINES/DRAINS: SKIN: macula diffuse rash on BUE, torso, chest and abdomen STATUS LOCALIS: L axilla wound is very small , shallow with minimal d/c no erythema no iduration, + buffing machine tender CARDIOVASCULAR: Regular rate and rhythm without murmurs, gallops, or rubs. No JVD. Peripheral pulses symmetric. RESPIRATORY/CHEST: Symmetric, unlabored respirations. Clear to auscultation. Breath sounds equal bilaterally. No wheezes, rales, or rhonchi. GASTROINTESTINAL: Abdomen soft, non-tender, nondistended. No hepato-splenomegaly , or palpable masses. No guarding. Bowel sounds present. MUSCULOSKELETAL: Extremities without clubbing, cyanosis, or edema. No joint tenderness or effusion noted. No calf tenderness. No mottling or clubbing. NEUROLOGICAL: Awake and alert. Non focal PSYCHIATRIC: calm cooperative Assessment & Plan Remarks MRSA L axilla abscess, sp debridement, VAC placed New fever: drug rash, less likely to be new fever Leucopenia: - worse Rash: Vanco IV induced. DIarrhea, abx associate Leukopenia an lymphopenia Recs cont doxycyline x 1- 3 more days Pt has to stay inside during the entire course due to the risk of photodermatitis she is homeless Pt can be discharged from ID standpoint chk C.diff if recurrent diarrhea chk HIV status fu WBC dw Sylvie Holman MD Oct 07, 2017 13:35
[2017-10-07] MEDS ORDERED: DOXY100T PO (14:11)
== END 2017-10-07 16:23 | disposition home or self-care (01) | DRG 854 ==
LOC: NEPE 13:01 → NEDA 17:45 → N04A 21:15
PROVIDERS: ADMIT Family Medicine; ATTEND Family Medicine
PROC: 0JBF0ZZ Excision of Left Upper Arm Subcutaneous Tissue and Fascia, Open Approach (ICD-10-PCS; principal; 2017-09-24 08:46)
DX: A41.02 Sepsis due to Methicillin resistant Staphylococcus aureus (principal); K52.1 Toxic gastroenteritis and colitis; I95.9 Hypotension, unspecified; L02.412 Cutaneous abscess of left axilla; L03.112 Cellulitis of left axilla; I10 Essential (primary) hypertension; W57.XXXA Bitten or stung by nonvenomous insect and other nonvenomous arthropods, initial encounter; R59.0 Localized enlarged lymph nodes; E03.9 Hypothyroidism, unspecified; F17.210 Nicotine dependence, cigarettes, uncomplicated; R00.0 Tachycardia, unspecified; D72.810 Lymphocytopenia; E78.00 Pure hypercholesterolemia, unspecified; E87.6 Hypokalemia; F10.21 Alcohol dependence, in remission; F17.290 Nicotine dependence, other tobacco product, uncomplicated; I25.10 Atherosclerotic heart disease of native coronary artery without angina pectoris; J44.9 Chronic obstructive pulmonary disease, unspecified; K59.00 Constipation, unspecified; L27.0 Generalized skin eruption due to drugs and medicaments taken internally; T36.8X5A Adverse effect of other systemic antibiotics, initial encounter; F32.9 Major depressive disorder, single episode, unspecified; F41.9 Anxiety disorder, unspecified; M19.90 Unspecified osteoarthritis, unspecified site; T36.95XA Adverse effect of unspecified systemic antibiotic, initial encounter; Z88.0 Allergy status to penicillin; Z59.0 Homelessness; I25.2 Old myocardial infarction
CPT/HCPCS: 71045; 76937; 76999; 80048; 80053; 80202; 81001; 82550; 82565; 83036; 83605; 83735; 84100; 84132; 84439; 84443; 84484; 85007; 85025; 85027; 86403; 87015; 87040; 87070; 87086; 87102; 87116; 87147; 87186; 87205; 87206; 87389; 93005; 96361; 96365; 96367; G0475; J0131; J1200; J1650; J1885; J1956; J2250; J2270; J2405; J2920; J3010; J3370; J3480; J7030; J7040; J7050